=== PATIENT | male | born 1940 | race African-American/Black ===

== ENCOUNTER 2017-04-17 10:56 | Inpatient (IN) | payer OTHER ==
[2017-04-17] MEDS ORDERED: SODIUM CHLORIDE 0.9% 1000 ML INFUS.BAG IV STA (11:24)
--- NOTE | 2017-04-17 11:24 | PDOC ---
History of Present Illness - General History Source: Patient, EMS - History of Present Illness Initial Comments: 04/17/17 12:25 77 y/o M with a PMHx of AML, prostate CA, lung CA presents to the ED via EMS from home with SOB. Patient Per EMS, patient was lethargic, hypotensive and tachycardic. While walking, the patient syncopized prior to getting into the ambulance. Patient reports associated cough, and decreased PO intake for the past 5 days. Denies abdominal pain, nausea, vomiting, diarrhea. Denies chest pain. <Анна Alfonso - Last Filed: 04/17/17 12:25> <Gris Stallings - Last Filed: 04/17/17 13:02> - General Chief Complaint: Lethargy Stated Complaint: HYPOTENSIVE Time Seen by Provider: 04/17/17 11:23 Past History <Анна Alfonso - Last Filed: 04/17/17 12:25> - Past Medical History Cancer: Yes (prostate, lung) - Surgical History Abdominal Surgery: Yes - Immunization History Immunization Up to Date: Yes - Suicide/Smoking/Psychosocial Hx Smoking Status: Yes Smoking History: Unknown if ever smoked Have you smoked in the past 12 months: No Number of Cigarettes Smoked Daily: 0 Information on smoking cessation initiated: No Hx Alcohol Use: No Drug/Substance Use Hx: No Substance Use Type: None Hx Substance Use Treatment: No <Gris Stallings - Last Filed: 04/17/17 13:02> - Past Medical History Allergies/Adverse Reactions: Allergies Allergy/AdvReac Type Severity Reaction Status Date / Time No Known Allergies Allergy Verified 04/17/17 11:21 Home Medications: Ambulatory Orders Docusate Sodium [Colace -] 100 mg PO DAILY 04/17/17 Oxycodone HCl 0 mg PO DAILY 04/17/17 Sennosides [Senna] 0 mg PO DAILY 04/17/17 Tamsulosin HCl [Flomax] 0.4 mg PO DAILY 04/17/17 Review of Systems - Review of Systems Able to Perform ROS?: Yes Comments:: 04/17/17 12:25 GENERAL/CONSTITUTIONAL: (+) lethargic, decreased PO intake. No fever or chills. HEAD, EYES, EARS, NOSE AND THROAT: No change in vision. No ear pain or discharge. No sore throat. CARDIOVASCULAR: (+) SOB. No chest pain RESPIRATORY: (+) cough, No wheezing, or hemoptysis. GASTROINTESTINAL: No nausea, vomiting, diarrhea or constipation. GENITOURINARY: No dysuria, frequency, or change in urination. MUSCULOSKELETAL: No joint or muscle swelling or pain. No neck or back pain. SKIN: No rash NEUROLOGIC: (+) syncope. No headache, vertigo, or change in strength/sensation. ENDOCRINE: No increased thirst. No abnormal weight change. HEMATOLOGIC/LYMPHATIC: No anemia, easy bleeding, or history of blood clots. ALLERGIC/IMMUNOLOGIC: No hives or skin allergy. <Анна Alfonso - Last Filed: 04/17/17 12:25> *Physical Exam - Vital Signs Last Vital Signs Temp Pulse Resp BP Pulse Ox 99.6 F 109 H 36 H 106/60 85 L 04/17/17 10:56 04/17/17 10:56 04/17/17 10:56 04/17/17 10:56 04/17/17 10:56 <Анна Alfonso - Last Filed: 04/17/17 12:25> - Vital Signs Last Vital Signs Temp Pulse Resp BP Pulse Ox 99.6 F 109 H 36 H 106/60 85 L 04/17/17 10:56 04/17/17 10:56 04/17/17 10:56 04/17/17 10:56 04/17/17 10:56 <Gris Stallings - Last Filed: 04/17/17 13:02> Heart Score/ECG Review - ECG Intrepretation Comment:: 04/17/17 12:22 sinus tach at 109, nl axis, nl interval mild st depression lateral leads <Gris Stallings - Last Filed: 04/17/17 13:02> ED Treatment Course - LABORATORY CBC & Chemistry Diagram: 04/17/17 11:40 04/17/17 11:40 - ADDITIONAL ORDERS Additional order review: Laboratory Results 04/17/17 04/17/17 11:40 11:40 VBG pH 7.33 POC VBG pCO2 26.6 L POC VBG pO2 48.6 H Mixed VBG HCO3 13.8 L* Crossmatch See Detail 04/17/17 11:40 RBC 0.98 L D MCV 96.5 H MCHC 31.4 L RDW 19.2 H D MPV 9.3 D Neutrophils % No Result Required. Lymphocytes % No Result Required. - Medications Given in the ED: ED Medications Discontinued Medications Generic Name Dose Route Start Last Admin Trade Name Gurdeep PRN Reason Stop Dose Admin Sodium Chloride 2,177 ml 04/17/17 11:24 04/17/17 12:22 Normal Saline - IV 04/17/17 11:25 2,177 ml ONCE STA Administration <Анна Alfonso - Last Filed: 04/17/17 12:25> - LABORATORY CBC & Chemistry Diagram: 04/17/17 11:40 04/17/17 11:40 <Gris Stallings - Last Filed: 04/17/17 13:02> Medical Decision Making - Critical Care Time Total Critical Care Time (minutes): 30 Critical Care Statement: The care of this patient involved high complexity decision making to prevent further life threatening deterioration of the patient 's condition and/or to evaluate & treat vital organ system(s) failure or risk of failure. - Medical Decision Making 04/17/17 12:19 a/p: 77yo male with hypotension and syncope at home, generalized weakness and lethargy -warm to touch but rectal temp negative for fever -hx of prostate ca, lung ca, aml -dehydrated on exam -pale -currently on radiation therapy for lung ca with DR. Cooper -labs -type and screen -cultures -broad spectrum abx -ivf hydration -reassess 04/17/17 12:22 hgb 3, rectal performed and sent to the lab. denies hematuria/rectal bleeding/ hemoptysis/hematemesis 04/17/17 12:[address] Yates from ICU who will see the patient in consult. 04/17/17 12:23 consent obtained for blood transfusion 04/17/17 13:01 medicine residents at the bedside, accepts for Dr. Stearns <Gris Stallings - Last Filed: 04/17/17 13:02> *DC/Admit/Observation/Transfer - Attestations Scribe Attestion: 04/17/17 12:26 Documentation prepared by Анна Alfonso, acting as biomedical scientist for Gris Stallings DO. <Анна Alfonso - Last Filed: 04/17/17 12:25> - Discharge Dispostion Admit: Yes - Attestations Physician Attestion: 04/17/17 13:02 I, Dr. Gris Stallings DO, attest that this document has been prepared under my direction and personally reviewed by me in its entirety. I further attest, that it accurately reflects all work, treatment, procedures and medical decision -making performed by me. <Gris Stallings - Last Filed: 04/17/17 13:02> Diagnosis at time of Disposition: Acute kidney injury, Secondary anemia, Syncope - Discharge Dispostion Disposition: HOME Condition at time of disposition: Critical - Referrals Referrals: Feliberto Pantoja MD [Primary Care Provider] -
[2017-04-17] MEDS ORDERED: PIPERACILLIN/TAZOB 4.5 GM/100 ML PRE-DOCKED IVPB ONE (11:31)
[2017-04-17] MEDS ORDERED: VANCOMYCIN 1 GRAM (PRE-DOCKED) 1,000 MG/250 ML BAG IVPB ONE (11:31)
[2017-04-17 11:55] LABS: MCH 30.3 pg (25.7-33.7); MCHC 31.4 g/dl (32.0-35.9); MEAN CELL VOLUME 96.5 fl (80-96); MEAN PLT VOLUME 9.3 fl (7.5-11.1); RDW 19.2 % (11.9-15.9); WHITE BLOOD COUNT 22.6 K/mm3 (4.0-10.0)
[2017-04-17 12:01] LABS: PLATELET COUNT 25 K/MM3 (134-434)
[2017-04-17 12:09] LABS: VENOUS BLOOD GAS HCO3 13.8 meq/L (19-25); VENOUS PH 7.33 (7.32-7.42)
[2017-04-17 12:12] LABS: INR 1.7 (0.82-1.09); PROTHROMBIN TIME (PATIENT) 18.9 SEC (9.98-11.88)
[2017-04-17 12:15] LABS: ACTIVATED PTT 28.6 SECONDS (26.9-34.4)
[2017-04-17 12:17] LABS: MAGNESIUM 2.3 mg/dL (1.8-2.4)
[2017-04-17 12:21] LABS: ALBUMIN 2.5 g/dl (3.4-5.0); ANION GAP 16 (8-16); BILIRUBIN,TOTAL 0.4 mg/dL (0.2-1.0); CALCIUM 7.5 mg/dL (8.5-10.1); CO2 15 mmol/L (21-32); CREATININE 1.8 mg/dL (0.7-1.3); GLUCOSE,RANDOM 150 mg/dL (74-106); SGOT/AST 16 U/L (15-37); SGPT/ALT 14 U/L (12-78); TOT PROT 5.1 g/dl (6.4-8.2)
[2017-04-17] MEDS ORDERED: PIPERACILLIN/TAZOB 4.5 GM 100 ML IVPB ONE (12:23)
[2017-04-17 12:24] LABS: ALK PHOS 65 U/L (45-117); CPK 50 IU/L (39-308); TROPONIN I < 0.02 ng/ml (0.00-0.05)
--- NOTE | 2017-04-17 12:56 | EKG ---
Test Reason : Blood Pressure : / mmHG Vent. Rate : 109 BPM Atrial Rate : 109 BPM P-R Int : 124 ms QRS Dur : 070 ms QT Int : 314 ms P-R-T Axes : 062 -79 -47 degrees QTc Int : 422 ms SINUS TACHYCARDIA WITH PREMATURE ATRIAL COMPLEXES LEFT AXIS DEVIATION LOW VOLTAGE QRS EARLY TRANSITION IN V1 WITH ST ELEVATION, TRUE POSTERIOR WALL MO NEEDS TO BE RULED OUT ST SEGMENT DEPRESSIONS IN II,III,aVF AND V4-V6 ABNORMAL ECG WHEN COMPARED WITH ECG OF 21-NOV-2015 09:33, PREMATURE ATRIAL COMPLEXES ARE NOW PRESENT CHANGES MENTIONED ABOVE REPAT TRACINGS Confirmed by ELLEN MUNIZ MD ([id number]) on 04/17/2017 12:55:53 PM Referred By: Confirmed By:ELLEN MUNIZ MD
[2017-04-17 12:57] LABS: URINE APPEARANCE CLOUDY; URINE BILIRUBIN NEGATIVE (NEGATIVE); URINE BLOOD NEGATIVE (NEGATIVE); URINE COLOR YELLOW; URINE GLUCOSE (UA) NEGATIVE (NEGATIVE); URINE KETONE NEGATIVE (NEGATIVE); URINE LEUK ESTERASE NEGATIVE (NEGATIVE); URINE NITRITE NEGATIVE (NEGATIVE); URINE PROTEIN NEGATIVE (NEGATIVE); URINE UROBILINOGEN NEGATIVE mg/dL (0.2-1.0)
[2017-04-17 13:25] LABS: METAMYELOCYTE 1 % (0-2); MYELOCYTE 2 % (0-2); TOTAL CELLS COUNTED 100
[2017-04-17 13:26] LABS: ANISOCYTOSIS 2+; BLAST 27 % (0-0); MACROCYTOSIS 1+; MICROCYTOSIS 1+; OVALOCYTE 2+; PLATELET ESTIMATE MARKEDLY DECREASED (NORMAL); TEAR DROP CELLS 1+
--- NOTE | 2017-04-17 13:41 | HP ---
CHIEF COMPLAINT: Oncologist Dr. Prakash [facility] [phone] HISTORY OF PRESENT ILLNESS: 77 yr old man with prostate ca, stage 4 lung adenocarcinoma, AML BIBEMS from home due to weakness. He has been having generalized weakness, poor appetite, cough and sob for past few weeks. this morning he was feeling very weak and unable to move. notes 40lb unintentional weight loss over past 2 months. He went to [facility] on 04/11 due to sob and weakness, says he was dx'd with pna and did not want to be admitted so he was discharged with levaquin 750mg po for 10 days. As per sister, she was called by Dr. Prakash yesterday who had urged him to go to the hospital to which the patient apparently said he would go but did not. She called him this morning on his home phone and cell but could not reach him so she called his social media senior associate Miss Hollis ([phone]) who had maintainence open his door. He was found laying on the couch unable to move and appearing weak. EMS was called. PAST MEDICAL HISTORY: prostate ca, stage 4 lung adenoca, AML Social History: Smoking: former smoker quit >20yrs ago Family History: multiple family members with cancer, sister with breast ca, brother from AML Allergies No Known Allergies Allergy (Verified 04/17/17 11:21) HOME MEDICATIONS: Matilda Haider ([phone]) and colmehrdad TID Senna BID 04/11 Jozef Miller levoquin 750mg qdaily for 10 days 03/06 oxy 10mg 1t q4hr prn 30 day supply 02/22 percocet 5-325 1 q6hr Home Medications Medication Instructions Recorded Docusate Sodium [Colace -] 100 mg PO DAILY 04/17/17 Oxycodone HCl 0 mg PO DAILY 04/17/17 Sennosides [Senna] 0 mg PO DAILY 04/17/17 Tamsulosin HCl [Flomax] by naga Pringle([phone]) last used in November 0.4 mg PO DAILY 04/17/17 PHYSICAL EXAMINATION GENERAL: lethargic, awake, alert, and fully oriented HEAD: Normal with no signs of trauma. EYES: Pupils equal, round and reactive to light, extraocular movements intact, sclera anicteric, conjunctiva clear. No lid lag. EARS, NOSE, THROAT: oropharynx clear without exudates. dry mucous membranes. tongue and right upper palate with dark pigmented mucus. no oral lesions or thrush. NECK: supple without lymphadenopathy, JVD, or masses. LUNGS: Breath sounds equal, clear to auscultation bilaterally HEART: Regular rate and rhythm, normal S1 and S2 without murmur, rub or gallop. ABDOMEN: Soft, nontender, not distended, normoactive bowel sounds, well-healed epigastric scar UPPER EXTREMITIES: 2+ radial pulses, warm, well-perfused. No peripheral edema. LOWER EXTREMITIES: 2+ dp pulses, warm, well-perfused. No calf tenderness. No peripheral edema. NEUROLOGICAL: Cranial nerves II-XII intact. Normal speech. facial symmetry. 5/ 5 b/l handgrip SKIN: Warm, dry, normal turgor, no rashes or lesions noted, normal capillary refill. ASSESSMENT/PLAN: 77 yr old man with multiple malignancies bibems due to generalized weakness and syncope admitted to the ICU with severe anemia, SIRS with lactic acidosis and MELISSA. - r/o dvts with LE doppler and echo to evaluate any right heart strain due to EKG findings. due to low h/h and thrombocytopenia, patient may not be a candidate for anticoagulation at this time. #Severe Anemia - unclear etiology, guaic +, ferritin/iron/TIBC/vit b15, haptoglobin/LDH/retic pending to r/o KEVIN/anemia of chronic disease/hemolytic anemia - concern for possibel AIHA from levofloxacin use - 4 units prbc's ordered - hematology consulted -- discussed case with Dr. Garcia who spoke with Dr. Prakash(pt's oncologist), pt's hgb on 04/02 was 7.0, concern for blast crisis now: repeat cbc , uric acid, LDH, coags, fibrinogen, mag, phos, maintain active type and screen. start on po bicarb BID and allopurinol 100mg po - to obtain g6pd, it is a send out test, will discuss with pathologist for approval tomorrow #Leucocytosis - reactive vs infectious, blood cx pending - will need coverage for hospital acquired pna in immunocomprimised pt - pt received vanc + zosyn in ED - ID consulted #MELISSA - likely pre-renal due to hypoperfusion due to severe anemia/volume depletion - r/o obstruction with renal/bladder scan - IVF post-transfusion - Discussed with Dr. Vasquez: plan for GI eval for possible scope in the AM, patient will be placed NPO with protonix po BID Diet: regular DVT: mod risk, however with low h/h and positive guaic/thrombocytopenia, will defer medical anti-coag. scds. Visit type - Emergency Visit Emergency Visit: No - New Patient This patient is new to me today: Yes Date on this admission: 04/17/17 - Critical Care Critical Care patient: Yes Total Critical Care Time (in minutes): 40 Critical Care Statement: The care of this patient involved high complexity decision making to prevent further life threatening deterioration of the patient 's condition and/or to evaluate & treat vital organ system(s) failure or risk of failure.
--- NOTE | 2017-04-17 14:13 | EKG ---
Test Reason : Blood Pressure : / mmHG Vent. Rate : 102 BPM Atrial Rate : 102 BPM P-R Int : 134 ms QRS Dur : 066 ms QT Int : 354 ms P-R-T Axes : 059 -65 030 degrees QTc Int : 461 ms POOR DATA QUALITY, INTERPRETATION MAY BE ADVERSELY AFFECTED SINUS TACHYCARDIA POSSIBLE LEFT ATRIAL ENLARGEMENT EARLY TRANSITION IN V2, TRUE POSTERIOR WALL IA OR INTHE PRESENCE OF S1 QIIIN PTE NEEDS TO BE EXCLUDED INDETERMINATE AXIS LOW VOLTAGE QRS NONSPECIFIC ST ABNORMALITY ABNORMAL ECG WHEN COMPARED WITH ECG OF 17-APR-2017 11:05, PREMATURE ATRIAL COMPLEXES ARE NO LONGER PRESENT T WAVE AMPLITUDE HAS DECREASED IN ANTERIOR LEADS FOLLOW UP TRACING IS RECOMMENDED Confirmed by ELLEN MUNIZ MD ([id number]) on 04/17/2017 2:13:24 PM Referred By: Confirmed By:ELLEN MUNIZ MD
--- NOTE | 2017-04-17 14:47 | PN ---
Teaching Attending Note ATTENDING PHYSICIAN STATEMENT I saw and evaluated the patient. I reviewed the resident's note and discussed the case with the resident. I agree with the resident's findings and plan as documented. SUBJECTIVE: Pt seen and examined in the ICU. Briefly, 77yo male with h/o stage 4 NSCLC, AML did not tolerate chemotherapy, prostate ca who was admitted with worsening generalized weakness, found to be hypotensive and tachycardic by EMS. Episode of syncope while with EMS. Denies fevers, chills, cough. Does report chest pain and shortness of breath with exertion. Found to be severely anemic with Hgb 3. States last blood count drawn was 3 weeks ago, required transfusions after that count. OBJECTIVE: Last Vital Signs Temp Pulse Resp BP Pulse Ox 98 F 95 H 18 98/47 96 04/17/17 14:20 04/17/17 14:20 04/17/17 14:20 04/17/17 14:20 04/17/17 12:26 Intake & Output 04/14/17 04/15/17 04/16/17 04/17/17 23:59 23:59 23:59 23:59 Weight 160 lb Gen: tachypneic at rest Heart: tachycardic, regular Lung: decreased breath sounds at the bases Abd: soft, nontender Ext: no edema CBC, BMP 04/17/17 11:40 04/17/17 11:40 Active Medications Chlorhexidine Gluconate (Hibiclens For Decolonization -) 1 applic TP HS DENISSE Mupirocin (Bactroban Ointment (For Decolonization) -) 1 applic NS BID DENISSE Stop: 04/22/17 21:59 ASSESSMENT AND PLAN: Severe Anemia/Thrombocytopenia Hypovolemia Lactic Acidosis from above Acute Kidney Injury Syncope AML Stage 4 NSCLC h/o Prostate Ca - transfuse PRBC, platelets - monitor CBC - IVF - monitor urine output, creatinine - trend lactate - echocardiogram given EKG findings - LE dopplers - protonix - heme/onc eval for prior records - received empiric antibiotics in ER, CXR findings likely progression of disease - DVT prophylaxis - ICU monitoring critical care time spent in reviewing chart, evaluating patient and formulating plan 35 min
[2017-04-17 15:37] VITALS: BMI 18.7
[2017-04-17] MEDS ORDERED: PNEUMOC 13-VAL CONJ-DIP CRM/PF 0.5 ML DISP.SYRIN IM ONE (15:51)
[2017-04-17] MEDS ORDERED: FLU VACCINE QUAD 60 MCG/0.5 ML (MDV 17-18) IM ONE (17:00)
--- NOTE | 2017-04-17 17:10 | CONSULT ---
Consultation: REQUESTING PROVIDER: ICU CONSULT REQUEST: We have been asked to medically evaluate this patient for ( anemia). 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 Hospitalizes 11/05 for similar symptoms, was treated for suspected PNA with rocephin/zithromax. Hospitalized at [facility] several months ago for hip fracture. Last cbc at oncologist 1 mo ag was 7 and required transfusion. Has been prescribed a course of levaquin a week ago for worsening cough productive of pink sputum, which he began taking. Patient brought to ICU in hemodynamically stable condition and afebrile. CBC shows severe anemia and thrombocytopenia Hgb 3 Plat 25. Patient denies recent f/c, h/a, n/v, diarrhea, melena, hematochezia, dysuria, hesitancy, frequency. He complains of generalized weakness, sob with minimal exertion, chest pain and thirst. REVIEW OF SYSTEMS: CONSTITUTIONAL: Absent: fever, chills HEENT: Absent: rhinorrhea, nasal congestion, throat pain, difficulty swallowing CARDIOVASCULAR: Absent: palpitations, peripheral edema RESPIRATORY: Absent: orthopnea GASTROINTESTINAL: Absent: abdominal pain, abdominal distension, nausea, vomiting, diarrhea, constipation, melena, hematochezia GENITOURINARY: Absent: dysuria, frequency, urgency, hesitancy, hematuria, flank pain MUSCULOSKELETAL: Absent: myalgia SKIN: Absent: rash, itching HEMATOLOGIC/IMMUNOLOGIC: Absent: frequent infections ENDOCRINE: Absent: heat intolerance, cold intolerance NEUROLOGIC: Absent: headache, focal weakness or paresthesias PSYCHIATRIC: Absent: anxiety, depression PHYSICAL EXAMINATION Vital Signs - 24 hr 04/17/17 04/17/17 04/17/17 14:20 15:26 16:01 Temperature 98 F 98.4 F Pulse Rate 95 H 96 H Respiratory 18 22 Rate Blood Pressure 98/47 101/39 O2 Sat by Pulse 100 Oximetry (%) 04/17/17 17:00 Temperature 98.5 F Pulse Rate 97 H Respiratory 26 H Rate Blood Pressure 108/45 O2 Sat by Pulse Oximetry (%) GENERAL: Awake, and oriented so self and place, in no acute distress, lethargic HEAD: Normal with no signs of trauma. EYES: Pupils equal, round and reactive to light, extraocular movements intact, sclera anicteric, conjunctiva pale. EARS, NOSE, THROAT: dry mucous membranes. NECK: supple without JVD LUNGS: reduced at bases, diffuse mild crackles HEART: Regular rate and rhythm, normal S1 and S2 ABDOMEN: Soft, nontender, not distended, normoactive bowel sounds, midline supraumbilical pulsatile mass MUSCULOSKELETAL: No CVA tenderness. UPPER EXTREMITIES: 2+ pulses, warm, well-perfused. No peripheral edema. LOWER EXTREMITIES: 2+ pulses, warm, well-perfused. No calf tenderness. No peripheral edema. NEUROLOGICAL: Cranial nerves II-XII intact. strenght 4-/5 in all extremities, sensation intact. slurred speech but not wearing dentures and has a dry mouth. PSYCHIATRIC: Cooperative. Good eye contact. Appropriate mood and affect. SKIN: Warm, dry, decreased turgor Laboratory Results - last 24 hr 04/17/17 04/17/17 04/17/17 13:57 13:57 13:57 Retic Count 1.01 Ferritin 9207.463 H LD Total 770 H Vitamin B12 04/17/17 14:00 Retic Count Ferritin LD Total Vitamin B12 386 Active Medications Generic Name Dose Route Start Last Admin Trade Name Freq PRN Reason Stop Dose Admin Chlorhexidine Gluconate 1 applic 04/17/17 22:00 Hibiclens For Decolonization - TP HS [facility] Mupirocin 1 applic 04/17/17 22:00 Bactroban Ointment (For Decolonization) - NS 04/22/17 21:59 BID [facility] ASSESSMENT/PLAN: Patient is a 77 yo M with MPH of AML, 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 Neuro -mildly lethargic due to anemia; responds appropriately to questions and follows commands -memory lag -no focal neuro deficits identified -expect improvement s/p transfusions Pulm *Stage 4 NCSCL, not currently on chemo -CXR R pleural effusion previously present, likely preogression of disease -due to reported worsening cough, will cover with zosyn and vanco ( MRSA risk) -ID on case -blood, urine and sputum cultures Cardiovascular *tachycardia secondary to anemia *chest pain secondary to demand ischemia -EKG sinus tach and nospecific T abnormalities -trop negative x 1; repeat -severe anemia Hgb 3 (baseline 8), ana luisaley due to myelodysplastic nature of AML in elderly patient -pRBC 2 U followed by repeat CBC -thrombocytopenia 25, will monitor and transfuse for plat <20 -iron studies and further heme labs p/d Severe lactic acidosis 9.8 due to demand ishemia -bicarb pills -IV hydration -repeat labs Oncology *Stage 4 NSCL: Monitor RLL effusion with daily CXR -prophylactic abx coverage -supplemental O2 for sats >92% -continue oxycodone 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 Thank you for this consultative opportunity. Problem List - Problems (1) MELISSA (acute kidney injury) Code(s): N17.9 - ACUTE KIDNEY FAILURE, UNSPECIFIED (2) Symptomatic anemia Code(s): D64.9 - ANEMIA, UNSPECIFIED (3) Syncope Code(s): R55 - SYNCOPE AND COLLAPSE (4) Abnormal CXR (chest x-ray) Code(s): R93.8 - ABNORMAL FINDINGS ON DIAGNOSTIC IMAGING OF BODY STRUCTURES (5) Anemia Code(s): D64.9 - ANEMIA, UNSPECIFIED Qualifiers: Anemia type: unspecified type Qualified Code(s): D64.9 - Anemia, unspecified (6) Lung cancer Code(s): C34.90 - MALIGNANT NEOPLASM OF UNSP PART OF UNSP BRONCHUS OR LUNG Qualifiers: Laterality: unspecified laterality (7) Pancytopenia Code(s): D61.818 - OTHER PANCYTOPENIA (8) Prostate cancer Code(s): C61 - MALIGNANT NEOPLASM OF PROSTATE (9) Weakness Code(s): R53.1 - WEAKNESS (10) Lactic acidosis Code(s): E87.2 - ACIDOSIS (11) Chest pain Code(s): R07.9 - CHEST PAIN, UNSPECIFIED (12) Demand ischemia Code(s): I24.8 - OTHER FORMS OF ACUTE ISCHEMIC HEART DISEASE (13) AML (acute myeloblastic leukemia) Code(s): C92.00 - ACUTE MYELOBLASTIC LEUKEMIA, NOT HAVING ACHIEVED REMISSION (14) GIB (gastrointestinal bleeding) Code(s): K92.2 - GASTROINTESTINAL HEMORRHAGE, UNSPECIFIED Visit type - Emergency Visit Emergency Visit: Yes ED Registration Date: 04/17/17 Care time: The patient presented to the Emergency Department on the above date and was hospitalized for further evaluation of their emergent condition. - New Patient This patient is new to me today: Yes Date on this admission: 04/17/17 - Critical Care Critical Care patient: Yes Total Critical Care Time (in minutes): 45 Critical Care Statement: The care of this patient involved high complexity decision making to prevent further life threatening deterioration of the patient 's condition and/or to evaluate & treat vital organ system(s) failure or risk of failure.
--- NOTE | 2017-04-17 17:38 | PN ---
Progress Note (short form) - Note Progress Note: ID consult dictated imp/reccd tired- not eager to talk to me- history from patient and chart 77 year old man with lung cancer, prostate cancer and AML- did not tolerate chemo- followed by Dr Tiwari admitted with SOB and weakness- he had episode of syncope while getting in the ambulance found to be hypotensive with hgb of 3! denies fevers recently seen at [facility] 04/11 and was prescribed levaquin 750 daily intermittent cough cxray with RLL infiltrate/effusion hgb3 lactic acid 9.8 thrombocytopenia wbc 22k with 62% pmns, 27%blasts not neutropenic cannot r/o sepsis with RLL infiltrate, cough, leukocytosis has been hospitalized at [facility] as well- received vancomycin and zosyn in ED he has MELISSA would check vanco level and continue zosyn sputum culture and urinary antigens was on levaquin as outpt leukocytosis may well be partly reactive to anemia as well as due to his AML ( he has blasts) severe anemia with thrombocytopenia- per hematology currently receiving transfusion history of prostate cancer, lung cancer , AML 40 minutes spent in the care of this critically ill ICU patient d/w Dr Velazquez and Dr Wright
[2017-04-17] MEDS: PIPERACILLIN/TAZOB 3.375 GM/50 ML PRE-DOCKED IVPB SCH (17:58)
[2017-04-17] MEDS ORDERED: SODIUM CHLORIDE 1,000 ML IV SCH (18:30)
[2017-04-17] MEDS ORDERED: oxyCODONE HCL 5 MG TABLET PO SCH (18:30)
--- NOTE | 2017-04-17 18:32 | PN ---
Teaching Attending Note Name of Resident: Dale Blas ATTENDING PHYSICIAN STATEMENT I saw and evaluated the patient. I reviewed the resident's note and discussed the case with the resident. I agree with the resident's findings and plan as documented. SUBJECTIVE: This is a 77-year-old man with a history of AML, lung cancer, prostate cancer who comes to the ER because of worsening weakness, decreased appetite and shortness of breath. EMS was called and found him to be hypotensive and tachycardic. He had been seen on 04/[address] [facility] ER. He was diagnosed with pneumonia and he refused to stay, so he was given a prescription for Levaquin 750 mg daily x 10 days. OBJECTIVE: Vital Signs Period Temp Pulse Resp BP Sys/Leigh Pulse Ox Last 24 Hr 98 F-99.6 F 95-109 18-36 82-126/39-71 85-100 HEART: S1S2, tachycardic LUNGS: Clear ABDOMEN: Soft, non-tender, non-distended, normal BS EXTREMITIES: No edema ASSESSMENT AND PLAN: This is a 77-year-old man with a history of AML, lung cancer, prostate cancer who presented to the ER with weakness, SOB. 1. Severe sepsis secondary to healthcare-associated pneumonia - Zosyn, Vancomycin started - IV fluid - Monitor lactic acid 2. Severe anemia - Being transfused 2 units PRBCs - Likely secondary to sepsis, AML - Anemia work-up - Stool positive for occult blood - Start Protonix - GI, hematology consults 3. Acute hypoxic respiratory failure secondary to pneumonia, anemia - Oxygen to maintain saturation > 90% 4. Thrombocytopenia - Likely secondary to sepsis, AML 5. Acute kidney injury secondary to sepsis, hypoperfusion - IV fluid, transfuse PRBCs - Monitor BUN, creatinine 6. Stage IV squamous cell lung cancer 7. Prostate cancer 8. AML 9. DVT prophylaxis - SCDs - No anticoagulation secondary to anemia, thrombocytopenia Critical Care Total Critical Care Time (in minutes): 60 Critical Care Statement: The care of this patient involved high complexity decision making to prevent further life threatening deterioration of the patient 's condition and/or to evaluate & treat vital organ system(s) failure or risk of failure.
--- NOTE | 2017-04-17 18:41 | CONSULT ---
Consult Consult Specialty:: Oncology Reason for Consultation:: AML - History of Present Illness History of Present Illness: Patient seen and examined. Chart reviewed in detail. Pt with Stage IV Lung Squamous ( on Nivo , last dose early mar), AML ( on supportive care, periodic transfusions , diagnosed in 09/2016) is now admitted SOB, syncope, hypotension. Was admitted to ICU for further management. - Past Medical History Pulmonary: Yes: Other (Patient reports Lung Cancer receiving weekly chemo) Renal/: Yes: Other (Prostate CA receiving hormonal Rx under Dr. Xiomara Peter) Additional Medical History: Patient is receiving hormonal Rx for prostate CA and reports having a second primary malignancy of the lung for which he receives weekly IV chemoRx in [place] ([facility]) - Alcohol/Substance Use Hx Alcohol Use: No History of Substance Use: reports: None - Smoking History Smoking history: Unknown if ever smoked Have you smoked in the past 12 months: No Aproximately how many cigarettes per day: 0 - Social History Usual Living Arrangement: Alone ADL: Independent History of Recent Travel: No Home Medications - Allergies Allergies/Adverse Reactions: Allergies Allergy/AdvReac Type Severity Reaction Status Date / Time No Known Allergies Allergy Verified 04/17/17 11:21 - Home Medications Home Medications: Ambulatory Orders Docusate Sodium [Colace -] 100 mg PO DAILY 04/17/17 Oxycodone HCl 10 mg PO Q6H 04/17/17 Sennosides [Senna] 8.6 mg PO DAILY 04/17/17 Tamsulosin HCl [Flomax] 0.4 mg PO DAILY 04/17/17 Review of Systems - Review of Systems Constitutional: reports: Fever, Lethargy, Loss of Appetite, Malaise, Weakness Physical Exam Vital Signs: Vital Signs Temperature 98.5 F 04/17/17 17:00 Pulse Rate 97 H 04/17/17 17:00 Respiratory Rate 26 H 04/17/17 17:00 Blood Pressure 108/45 04/17/17 17:00 O2 Sat by Pulse Oximetry (%) 100 04/17/17 15:26 Constitutional: Yes: Other (letahrgic, easily arousable and could hold a conversation.) Eyes: Yes: Conjunctiva Clear HENT: Yes: Atraumatic, Normocephalic Neck: Yes: Supple, Trachea Midline Cardiovascular: Yes: Regular Rate and Rhythm, Tachycardia Respiratory: Yes: Regular Gastrointestinal: Yes: Normal Bowel Sounds, Soft, Abdomen, Obese Edema: No Assessment/Plan Stage IV Squamous cell lung Ca ( presently on Nivolumab , last dose, early Mar) AML ( diagnosed in 09/2016 ,s/p "7+3" chemo ,no further Rx, pt declined) Severe sepsis , likely from PNA. Severe Hypotension. -Pt with severe anemia/thrombocytopenia, a combination of likely sepsis/ worsening AML. -supportive care with PRBC and Platelets ( ordered for both now). -Leucoyctosis, w/ 27% blasts ( new from 04/02 , labs from [facility]), sent out a requisition for flow, will confirm reciept in the am. -r/o DIC, repeat coags. -at risk for Tumor lysis, daily LDH, uric acid, lytes, start allopurinol 100mg, pending course might need to give rasburicase. -MELISSA. -Pt did not want chemotherapy as it is not "good" and he doesn't wanted to be transferred anywhere in his words. -ID consult -Critically ill. -I have spoken to and updated the pts admission/condition. I have discussed the plan in detail with admitting resident and also communicated with RN in detail.
--- NOTE | 2017-04-17 19:49 | EKG ---
Test Reason : Blood Pressure : / mmHG Vent. Rate : 094 BPM Atrial Rate : 094 BPM P-R Int : 134 ms QRS Dur : 076 ms QT Int : 370 ms P-R-T Axes : 066 -55 032 degrees QTc Int : 462 ms SINUS RHYTHM WITH PREMATURE SUPRAVENTRICULAR COMPLEXES AND PREMATURE VENTRICULAR COMPLEXES OR FUSION COMPLEXES LEFT AXIS DEVIATION LOW VOLTAGE QRS INCREASED R/S RATIO IN V1, CONSIDER EARLY TRANSITION OR POSTERIOR INFARCT ABNORMAL ECG WHEN COMPARED WITH ECG OF 17-APR-2017 13:11, FUSION COMPLEXES ARE NOW PRESENT PREMATURE VENTRICULAR COMPLEXES ARE NOW PRESENT PREMATURE SUPRAVENTRICULAR COMPLEXES ARE NOW PRESENT Confirmed by ELLEN MUNIZ MD ([id number]) on 04/17/2017 7:49:16 PM Referred By: Kenton MCCORMICK Confirmed By:ELLEN MUNIZ MD
[2017-04-17 21:02] LABS: MCH 28.6 pg (25.7-33.7); MCHC 33.1 g/dl (32.0-35.9); MEAN CELL VOLUME 86.3 fl (80-96); RDW 16.8 % (11.9-15.9); WHITE BLOOD COUNT 18.5 K/mm3 (4.0-10.0)
[2017-04-17 21:30] LABS: PHOSPHOROUS 4.3 mg/dL (2.5-4.9); URIC ACID 10.5 mg/dL (2.6-7.2)
[2017-04-17] MEDS ORDERED: ALLOPURINOL 100 MG TABLET (FP) PO ONE (21:39)
[2017-04-17] MEDS ORDERED: SODIUM BICARBONATE 650 MG TABLET PO SCH (22:00)
[2017-04-17] MEDS: PANTOPRAZOLE 40 MG TABLET (FP) PO SCH (22:08)
[2017-04-17] MEDS: MUPIROCIN 2% TOPICAL OINTMENT FOR DECOLONIZATION NS SCH (22:21)
[2017-04-17] MEDS: CHLORHEXIDINE GLUCONATE 4% CLEANSER FOR DECOLONIZATION TP SCH (22:21)
[2017-04-17 22:50] LABS: INR 1.69 (0.82-1.09); PROTHROMBIN TIME (PATIENT) 18.8 SEC (9.98-11.88)
--- NOTE | 2017-04-17 23:13 | HP ---
CHIEF COMPLAINT: Shortness of breath PCP: name unknown to patient HISTORY OF PRESENT ILLNESS: The patient is a 77 yo M w/ PMH AML, Prostate Ca, Lung Ca (Stage 4) who was BIBEMS c/o increased shortness of breath for the past 1 week. Patient was confused during interview. History compiled from patient, patient's sister and ED records. The patient had been complaining of progressive shortness of breath for the past 2 months. One day prior to admission, the patient called his sister , stating that he did not feel well. Over the next day, the patient did not answer his sister's calls, prompting her to enter his apartment with a application manager. They found the patient in his apartment confused and in respiratory distress. As per EMS, the patient was tachycardic and hypotensive at the scene. When the patient was walking to the ambulance, he syncopized. The patient also complains of cough and decreased PO intake for the past 5 days. He recently went to [facility] ER, where he was diagnosed with pneumonia and sent home on Levquin. Patient denies chest tightness, chest pain, fevers, chills, abdominal pain, palpitations, N/V/D ER course was notable for: (1) WBC 22.6, Hb 3, hct 9.5, plt 25 (2) rectal temp 99.8, lactic acid 9.8 (3) s/p 1u PRBC Recent Travel: none PAST MEDICAL HISTORY: -see above -hip fracture september 2016 PAST SURGICAL HISTORY: -hip fracture repair september 2016 -VATS to correct recurrent pleural effusions Social History: Smoking: smoked 1PPD for unknown amount of time. Quit 30 years ago. Alcohol: denies Drugs: denies Family History: -multiple family members with cancer on both sides; ages and types of cancer unknown Allergies No Known Allergies Allergy (Verified 04/17/17 11:21) HOME MEDICATIONS: Home Medications Medication Instructions Recorded Docusate Sodium [Colace -] 100 mg PO DAILY 04/17/17 Oxycodone HCl 10 mg PO Q6H 04/17/17 Sennosides [Senna] 8.6 mg PO DAILY 04/17/17 Tamsulosin HCl [Flomax] 0.4 mg PO DAILY 04/17/17 REVIEW OF SYSTEMS CONSTITUTIONAL: Absent: fever, chills, diaphoresis, generalized weakness, malaise, loss of appetite, weight change HEENT: Absent: rhinorrhea, nasal congestion, throat pain, throat swelling, difficulty swallowing, mouth swelling, ear pain, eye pain, visual changes CARDIOVASCULAR: Absent: chest pain, palpitations, irregular heart rate, peripheral edema RESPIRATORY: Absent: orthopnea, wheezing, stridor, hemoptysis GASTROINTESTINAL: Absent: abdominal pain, abdominal distension, nausea, vomiting, diarrhea, constipation, melena, hematochezia GENITOURINARY: Absent: dysuria, frequency, urgency, hesitancy, hematuria, flank pain, genital pain MUSCULOSKELETAL: Absent: myalgia, arthralgia, joint swelling, back pain, neck pain SKIN: Absent: rash, itching, pallor HEMATOLOGIC/IMMUNOLOGIC: Absent: easy bleeding, easy bruising, lymphadenopathy ENDOCRINE: Absent: unexplained weight gain, unexplained weight loss, heat intolerance, cold intolerance NEUROLOGIC: Absent: headache, focal weakness or paresthesias, dizziness, unsteady gait, seizure, mental status changes, bladder or bowel incontinence PSYCHIATRIC: Absent: anxiety, depression, suicidal or homicidal ideation, hallucinations. PHYSICAL EXAMINATION Vital Signs - 24 hr 04/17/17 04/17/17 04/17/17 14:20 15:26 16:01 Temperature 98 F 98.4 F Pulse Rate 95 H 96 H Respiratory 18 22 Rate Blood Pressure 98/47 101/39 O2 Sat by Pulse 100 Oximetry (%) 04/17/17 04/17/17 17:00 20:00 Temperature 98.5 F Pulse Rate 97 H 93 H Respiratory 26 H 24 Rate Blood Pressure 108/45 91/43 O2 Sat by Pulse Oximetry (%) GENERAL: Patient mildy confused, solumnent able to answer questions. HEAD: Normal with no signs of trauma. EYES: Pupils equal, round and reactive to light, extraocular movements intact, sclera anicteric, conjunctiva clear. No lid lag. NECK: Normal range of motion, supple no JVD. LUNGS: Breath sounds equal, clear to auscultation bilaterally. No wheezes, and no crackles. Patient using accessory muscles to breathe. Able to speak in full sentences HEART: Regular rate and rhythm, normal S1 and S2 without murmur, rub or gallop. ABDOMEN: Soft, nontender, not distended, normoactive bowel sounds, no guarding, no rebound, no masses. No hepatomegaly or splenomegaly. UPPER EXTREMITIES: 2+ pulses, warm, well-perfused. No cyanosis. No clubbing. No peripheral edema. LOWER EXTREMITIES: 2+ pulses, warm, well-perfused. No calf tenderness. No peripheral edema. NEUROLOGICAL: Cranial nerves II-X intact. Normal speech. Normal gait. Strength 5/5 in all extremities. Face is symmetric SKIN: Warm, dry, normal turgor, no rashes or lesions noted, normal capillary refill. Laboratory Results - last 24 hr 04/17/17 04/17/17 04/17/17 13:57 13:57 13:57 WBC RBC Hgb Hct MCV MCH MCHC RDW Plt Count Neutrophils % Lymphocytes % Retic Count 1.01 Fibrinogen Uric Acid Phosphorus Ferritin 9207.463 H LD Total 770 H Troponin I Vitamin B12 04/17/17 04/17/17 04/17/17 14:00 20:00 20:00 WBC 18.5 H RBC 1.67 L D Hgb 4.8 L* D Hct 14.4 L MCV 86.3 MCH 28.6 MCHC 33.1 RDW 16.8 H D Plt Count Neutrophils % No Result Required. Lymphocytes % No Result Required. Retic Count Fibrinogen 259.0 Uric Acid Phosphorus Ferritin LD Total Troponin I Vitamin B12 386 04/17/17 04/17/17 20:00 20:00 WBC RBC Hgb Hct MCV MCH MCHC RDW Plt Count Neutrophils % Lymphocytes % Retic Count Fibrinogen Uric Acid 10.5 H Phosphorus 4.3 Ferritin LD Total 699 H Troponin I < 0.02 Vitamin B12 ASSESSMENT/PLAN: This is a 77 yo M w/ PMH of multiple malignacies who was BIBEMS c/o increased SOB, cough, decreased PO intake and lethargy for 1 week. He is admitted to the ICU for acute hypoxemic respiratory failure 2/2 severe symptomatic anemia and MELISSA. #Severe symptomatic anemia -Hb 3 in ED -s/p 1u PRBC in ED -4 more units ordered -serial CBC's to gauge Hb response -serum FE, TIBC, Ferritin, reticulocytes, Vit b12 lvls -Haptoglobin, LDH -hematology consult -guiac positive -GI consult #Severe Sepsis likely 2/2 RLL PNA -CXR showing RLL consolidation/atalectasis -ID consult, will follow reccs -s/p vancomycin, zosyn in ED #Acute hypoxemic respiratory failure likely 2/2 severe symptomatic anemia vs PNA -saturating between 75 and 90 on NRB during interview -supplemental O2 to maintain saturation >90% #lactic acidosis likley 2/2 severe sepsis vs anemia -LA 9.8 in ED -IVF -will RPT lactic acid in AM #leukocytosis likley 2/2 PNA vs malignancy -22.6 in ED -ID consult -s/p vancomycin, zosyn in ED #MELISSA likely 2/2 anemia vs severe sepsis vs post renal causes -BUN 83, Cr 1.8 in ED -baseline creatinine .8 -IVF -renal/bladder US r/o obstruction -kerr catheter in place #thrombocytopenia likely 2/2 malignancy -platelets 25 in ED -hematology consult #FEN -NS @ 75 -monitor lytes -NPO #Prophy -SCDs; anticoagulation c/i in setting of possible bleed and anemia -Protonix 40mg PO BID #dispo -admit to ICU Problem List - Problem (1) MELISSA (acute kidney injury) Code(s): N17.9 - ACUTE KIDNEY FAILURE, UNSPECIFIED (2) AML (acute myeloblastic leukemia) Code(s): C92.00 - ACUTE MYELOBLASTIC LEUKEMIA, NOT HAVING ACHIEVED REMISSION (3) Lactic acidosis Code(s): E87.2 - ACIDOSIS (4) Symptomatic anemia Code(s): D64.9 - ANEMIA, UNSPECIFIED (5) Syncope Code(s): R55 - SYNCOPE AND COLLAPSE (6) Lung cancer Code(s): C34.90 - MALIGNANT NEOPLASM OF UNSP PART OF UNSP BRONCHUS OR LUNG Qualifiers: Laterality: unspecified laterality (7) Prostate cancer Code(s): C61 - MALIGNANT NEOPLASM OF PROSTATE Visit type - Emergency Visit Emergency Visit: Yes ED Registration Date: 04/17/17 Care time: The patient presented to the Emergency Department on the above date and was hospitalized for further evaluation of their emergent condition. - New Patient This patient is new to me today: Yes Date on this admission: 04/17/17 - Critical Care Critical Care patient: Yes Total Critical Care Time (in minutes): 40 Critical Care Statement: The care of this patient involved high complexity decision making to prevent further life threatening deterioration of the patient 's condition and/or to evaluate & treat vital organ system(s) failure or risk of failure.
[2017-04-17 23:19] LABS: ANION GAP 10 (8-16); CALCIUM 7.2 mg/dL (8.5-10.1); CO2 20 mmol/L (21-32); CREATININE 1.5 mg/dL (0.7-1.3); GLUCOSE,RANDOM 136 mg/dL (74-106)
[2017-04-17 23:35] LABS: MEAN PLT VOLUME 9.1 fl (7.5-11.1); PLATELET COUNT 13 K/MM3 (134-434)
[2017-04-17 23:53] LABS: BLAST 10 % (0-0); PLATELET ESTIMATE MARKEDLY DECREASED (NORMAL); REACTIVE LYMPHOCYTES 1 % (0-80); TOTAL CELLS COUNTED 100
[2017-04-18] MEDS: PIPERACILLIN/TAZOB 3.375 GM/50 ML PRE-DOCKED IVPB SCH ×3 (01:59→17:52)
--- NOTE | 2017-04-18 06:15 | PN ---
Physical Exam: SUBJECTIVE: Patient seen and examinedat bedside. feels slightly better today, off of NRB and on NC. Saturating 90-100s OBJECTIVE: Vital Signs Period Temp Pulse Resp BP Sys/Leigh Pulse Ox Last 24 Hr 98 F-98.6 F 81-97 18-28 91-108/39-52 98-100 GENERAL: The patient is drowsy, in no acute distress. HEAD: Normal with no signs of trauma. EYES: extraocular movements intact, sclera anicteric, conjunctiva clear. No ptosis. NECK: Trachea midline, full range of motion, supple. LUNGS: Breath sounds equal, clear to auscultation bilaterally, no wheezes, no crackles, no accessory muscle use. HEART: Regular rate and rhythm, S1, S2 without murmur, rub or gallop. ABDOMEN: Soft, nontender, nondistended, normoactive bowel sounds, no guarding, no rebound, no hepatosplenomegaly, no masses. EXTREMITIES: 2+ pulses, warm, well-perfused, no edema. NEUROLOGICAL: Cranial nerves II through X grossly intact. Normal speech, gait not observed. PSYCH: Normal mood, normal affect. SKIN: Warm, dry, normal turgor, no rashes or lesions noted Laboratory Results - last 24 hr 04/17/17 04/17/17 04/17/17 13:57 13:57 13:57 WBC RBC Hgb Hct MCV MCH MCHC RDW Plt Count MPV Total Counted Neutrophils % Neutrophils % (Manual) Band Neuts % (Manual) Lymphocytes % Lymphocytes % (Manual) Monocytes % (Manual) Blast Cells % (Manual) Other Cell Type Platelet Estimate Retic Count 1.01 Haptoglobin PT with INR INR Fibrinogen Sodium Potassium Chloride Carbon Dioxide Anion Gap BUN Creatinine Random Glucose Uric Acid Calcium Phosphorus Ferritin 9207.463 H LD Total 770 H Troponin I Vitamin B12 04/17/17 04/17/17 04/17/17 14:00 15:00 20:00 WBC 18.5 H RBC 1.67 L D Hgb 4.8 L* D Hct 14.4 L MCV 86.3 MCH 28.6 MCHC 33.1 RDW 16.8 H D Plt Count 13 L* D MPV 9.1 Total Counted 100 Neutrophils % No Result Required. Neutrophils % (Manual) 71 Band Neuts % (Manual) 12 H Lymphocytes % No Result Required. Lymphocytes % (Manual) 5 L D Monocytes % (Manual) 1 L Blast Cells % (Manual) 10 H D Other Cell Type Platelet Estimate Markedly decreased Retic Count Haptoglobin 180 PT with INR INR Fibrinogen Sodium Potassium Chloride Carbon Dioxide Anion Gap BUN Creatinine Random Glucose Uric Acid Calcium Phosphorus Ferritin LD Total Troponin I Vitamin B12 386 04/17/17 04/17/17 04/17/17 20:00 20:00 20:00 WBC RBC Hgb Hct MCV MCH MCHC RDW Plt Count MPV Total Counted Neutrophils % Neutrophils % (Manual) Band Neuts % (Manual) Lymphocytes % Lymphocytes % (Manual) Monocytes % (Manual) Blast Cells % (Manual) Other Cell Type Platelet Estimate Retic Count Haptoglobin PT with INR INR Fibrinogen 259.0 Sodium Potassium Chloride Carbon Dioxide Anion Gap BUN Creatinine Random Glucose Uric Acid 10.5 H Calcium Phosphorus 4.3 Ferritin LD Total 699 H Troponin I < 0.02 Vitamin B12 04/17/17 04/17/17 22:00 22:00 WBC RBC Hgb Hct MCV MCH MCHC RDW Plt Count MPV Total Counted Neutrophils % Neutrophils % (Manual) Band Neuts % (Manual) Lymphocytes % Lymphocytes % (Manual) Monocytes % (Manual) Blast Cells % (Manual) Other Cell Type Platelet Estimate Retic Count Haptoglobin PT with INR 18.80 H INR 1.69 H Fibrinogen Sodium 142 Potassium 4.5 Chloride 112 H Carbon Dioxide 20 L D Anion Gap 10 BUN 82 H Creatinine 1.5 H Random Glucose 136 H Uric Acid Calcium 7.2 L Phosphorus Ferritin LD Total Troponin I Vitamin B12 Active Medications Generic Name Dose Route Start Last Admin Trade Name Freq PRN Reason Stop Dose Admin Allopurinol 100 mg 04/18/17 10:00 Zyloprim - PO DAILY DENISSE Chlorhexidine Gluconate 1 applic 04/17/17 22:00 04/17/17 22:21 Hibiclens For Decolonization - TP 1 applic HS DENISSE Administration Sodium Chloride 1,000 mls @ 75 mls/hr 04/17/17 18:30 04/17/17 19:00 Normal Saline - IV 75 mls/hr ASDIR DENISSE Administration Mupirocin 1 applic 04/17/17 22:00 04/17/17 22:21 Bactroban Ointment (For Decolonization) - NS 04/22/17 21:59 1 applic BID DENISSE Administration Oxycodone HCl 10 mg 09/26/17 21:12 Roxicodone - PO Q6HPO PRN PAIN Pantoprazole Sodium 40 mg 04/17/17 22:00 04/17/17 22:08 Protonix - PO 40 mg BID DENISSE Administration Piperacillin Sod/Tazobactam Sod 3.375 gm 04/17/17 18:00 04/18/17 01:59 Zosyn 3.375gm Ivpb (Pre-Docked) IVPB 3.375 gm Q8H-IV DENISSE Administration Protocol Sodium Bicarbonate 650 mg 04/17/17 22:00 04/17/17 22:08 Sodium Bicarbonate - PO 650 mg BID DENISSE Administration Tamsulosin HCl 0.4 mg 04/18/17 08:30 Flomax - PO DAILY@0830 [facility] ASSESSMENT/PLAN: This is a 77 yo M w/ PMH of multiple malignacies who was BIBEMS c/o increased SOB, cough, decreased PO intake and lethargy for 1 week. He is admitted to the ICU for acute hypoxemic respiratory failure 2/2 severe symptomatic anemia and MELISSA. #Severe symptomatic anemia -last Hb 6 -s/p total 6u PRBC, 1u Plt -f/u rpt CBC after transfusion completed. -serum FE 114, TIBC 124, Ferritin 9270, reticulocytes 1.1, Vit b12 386 -Haptoglobin 180, LDH 629 -hematology consult -guiac positive -GI consult: likely not occult bleed; no need for emergent workup #Severe Sepsis likely 2/2 RLL PNA -CXR showing RLL consolidation/atalectasis -ucx, bcx negative to date -ID consult, will follow reccs -s/p vancomycin, zosyn in ED -on empiric zosyn #Acute hypoxemic respiratory failure likely 2/2 severe symptomatic anemia vs PNA -saturating between 75 and 90 on NRB during interview -supplemental O2 to maintain saturation >90% #leukocytosis likley 2/2 PNA vs malignancy -22.6 in ED -ID consult -s/p vancomycin, zosyn in ED -improving; 16.4 today #MELISSA likely 2/2 anemia vs severe sepsis vs post renal causes -BUN 83, Cr 1.8 in ED -baseline creatinine .8 -IVF -renal/bladder US r/o obstruction -kerr catheter in place #thrombocytopenia likely 2/2 malignancy -platelets 25 in ED -hematology consult -plt transfusion overnight -plt now 52 #lactic acidosis likley 2/2 severe sepsis vs anemia- resolved -LA 1.5 today #FEN -NS @ 75 -monitor lytes -NPO #Prophy -SCDs; anticoagulation c/i in setting of possible bleed and anemia -Protonix 40mg PO BID #dispo -admit to ICU Problem List - Problems (1) MELISSA (acute kidney injury) Code(s): N17.9 - ACUTE KIDNEY FAILURE, UNSPECIFIED (2) AML (acute myeloblastic leukemia) Code(s): C92.00 - ACUTE MYELOBLASTIC LEUKEMIA, NOT HAVING ACHIEVED REMISSION (3) Lactic acidosis Code(s): E87.2 - ACIDOSIS (4) Symptomatic anemia Code(s): D64.9 - ANEMIA, UNSPECIFIED (5) Syncope Code(s): R55 - SYNCOPE AND COLLAPSE (6) Lung cancer Code(s): C34.90 - MALIGNANT NEOPLASM OF UNSP PART OF UNSP BRONCHUS OR LUNG Qualifiers: Laterality: unspecified laterality (7) Prostate cancer Code(s): C61 - MALIGNANT NEOPLASM OF PROSTATE Visit type - Emergency Visit Emergency Visit: Yes ED Registration Date: 04/17/17 Care time: The patient presented to the Emergency Department on the above date and was hospitalized for further evaluation of their emergent condition. - New Patient This patient is new to me today: No - Critical Care Critical Care patient: No
[2017-04-18 06:28] LABS: MCH 28.6 pg (25.7-33.7); MCHC 34.4 g/dl (32.0-35.9); MEAN CELL VOLUME 83.2 fl (80-96); MEAN PLT VOLUME 7.4 fl (7.5-11.1); PLATELET COUNT 52 K/MM3 (134-434); RDW 15.2 % (11.9-15.9); WHITE BLOOD COUNT 16.4 K/mm3 (4.0-10.0)
[2017-04-18 06:41] LABS: INR 1.57 (0.82-1.09); PROTHROMBIN TIME (PATIENT) 17.4 SEC (9.98-11.88)
[2017-04-18 06:52] LABS: ALBUMIN 2.2 g/dl (3.4-5.0); ANION GAP 8 (8-16); CO2 22 mmol/L (21-32); CREATININE 1.2 mg/dL (0.7-1.3); GLUCOSE,RANDOM 123 mg/dL (74-106); LDH 629 U/L (87-241); MAGNESIUM 2.2 mg/dL (1.8-2.4); PHOSPHOROUS 3.2 mg/dL (2.5-4.9); SGOT/AST 29 U/L (15-37); SGPT/ALT 27 U/L (12-78)
[2017-04-18 06:53] LABS: ALK PHOS 53 U/L (45-117); BILIRUBIN,TOTAL 0.8 mg/dL (0.2-1.0); CALCIUM 7.3 mg/dL (8.5-10.1); TOT PROT 4.4 g/dl (6.4-8.2)
--- NOTE | 2017-04-18 07:02 | CONS ---
DATE OF CONSULTATION: DATE OF DICTATION: 04/17/2017 REQUESTED BY: The hospitalist service. HISTORY OF PRESENT ILLNESS: History was from the patient, who right now is in the ICU, quite tired and intermittently gives a history. History as well is obtained from the chart and from speaking with Dr. Wright. I spoke with the food prep worker. This is a 77-year-old man with a history of stage 4 non-small cell lung cancer. He has a history of prostate cancer, AML, did not tolerate chemotherapy, who has a history of anemia as well and has received blood transfusions in the past, who was admitted with worsening generalized weakness as well as shortness of breath and cough. He has had several weeks of these symptoms. He was seen at [facility] emergency room and was prescribed Levaquin on April 11 which he filled at the pharmacy. He denies any fevers or chills at home. He notes he has a cough that is intermittently productive. He has some chest pain and shortness of breath with exertion. He had an episode of syncope while he was entering the ambulance with EMS. ALLERGIES: He has no known drug allergies. MEDICATIONS: Include Colace t.i.d., Senna b.i.d., Levaquin 750 mg daily, oxycodone 10 mg q.4 hours, Percocet 5/325 p.r.n. FAMILY HISTORY: Multiple family members with cancer, sister with breast cancer , a brother who is with AML. PAST MEDICAL HISTORY: He was last in our hospital in October 2015 when he was treated for pneumonia with Rocephin and Zithromax. SOCIAL HISTORY: He is . He lives alone. 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 He has no known HIV risk factors. He has no recent travel. REVIEW OF SYSTEMS: Notable for shortness of breath, cough, sputum production. He has no abdominal pain or chest pain at this time. He denies any diarrhea or dysuria. PHYSICAL EXAMINATION: Vital Signs: He is afebrile, temperature is 98.5, pulse of 97, blood pressure 108/45, respiratory rate is 26, he is wearing 100% nonrebreather, he is saturating 100%. General: He is a thin man in no acute distress. HEENT: He is normocephalic. His eyes are anicteric. He has dry oral mucosa. He has no thrush. Neck: Supple. Lungs: Have diminished breath sounds at the bases. He has some crackles at the right base. Heart: Tachycardic. Abdomen: Soft, nontender. Extremities: Without edema. Skin: He has no rash. LABORATORIES: Notable for a white count of 22.6 with 62% neutrophils and 27% blasts, hemoglobin is 3 with an MCV of 96, platelets are 25,000. INR is 1.7. His BUN is 83 and creatinine is 1.8 with a lactic acid of 9.8. His liver function tests are normal and albumin is 2.5. His urinalysis is negative. His stool occult blood is positive. Blood cultures, urine cultures have been sent. Chest x-ray reveals a right lower lobe infiltrate with effusion. There is a right pleural effusion with consolidation and atelectasis of the right lower lobe. The left lung is clear. ASSESSMENT AND RECOMMENDATIONS: 1. In summary, this is a 77-year-old man admitted with hypotension, severe anemia, cannot rule out sepsis, with right lower lobe infiltrate, cough, and leukocytosis. He apparently has been hospitalized at [facility] as well. He received vancomycin and Zosyn in the emergency room. He was on Levaquin as an outpatient. He has acute kidney injury. Would check vancomycin level and continue Zosyn. Would obtain sputum culture and urinary antigens. His leukocytosis may be partly reactive due to the anemia as well as due to his AML. He has blasts. 2. Severe anemia with thrombocytopenia. Workup and management per Hematology. Currently is receiving blood transfusion. 3. History of prostate cancer, lung cancer, and acute myelogenous leukemia. Overall prognosis is quite poor. Forty minutes were spent in the care of this critically ill patient. The case was discussed with Dr. Velazquez and Dr. Wright. Jon [id number] CHERYL
--- NOTE | 2017-04-18 07:09 | PN ---
Progress Note, Physician Chief Complaint: ID ICU follow up for this 77 year old male wit diagnosis of Stage IV lung cancer S/ P Nivolumab early Mar. Also history of AML Admitted hypoxemia tachycardic hypotensive with severe anemia with Hgb of 3. Diagnosis of sepsis considered with pneumonia thought to be possible source. Empiric therapy with Vancomycin 1 dose and Pip Tazo day 1 therapy given. Does not require pressors Currently alert in NAD notes minimal couph with some sputum production. Never febrile since admission - Current Medication List Current Medications: Active Medications Allopurinol (Zyloprim -) 100 mg PO DAILY [facility] Chlorhexidine Gluconate (Hibiclens For Decolonization -) 1 applic TP HS [facility] Last Admin: 04/17/17 22:21 Dose: 1 applic Sodium Chloride (Normal Saline -) 1,000 mls @ 75 mls/hr IV ASDIR [facility] Last Admin: 04/17/17 19:00 Dose: 75 mls/hr Mupirocin (Bactroban Ointment (For Decolonization) -) 1 applic NS BID [facility] Stop: 04/22/17 21:59 Last Admin: 04/17/17 22:21 Dose: 1 applic Oxycodone HCl (Roxicodone -) 10 mg PO Q6HPO PRN PRN Reason: PAIN Pantoprazole Sodium (Protonix -) 40 mg PO BID [facility] Last Admin: 04/17/17 22:08 Dose: 40 mg Piperacillin Sod/Tazobactam Sod (Zosyn 3.375gm Ivpb (Pre-Docked)) 3.375 gm IVPB Q8H-IV [facility] PRN Reason: Protocol Last Admin: 04/18/17 01:59 Dose: 3.375 gm Sodium Bicarbonate (Sodium Bicarbonate -) 650 mg PO BID [facility] Last Admin: 04/17/17 22:08 Dose: 650 mg Tamsulosin HCl (Flomax -) 0.4 mg PO DAILY@0830 [facility] - Objective Vital Signs: Vital Signs Temperature 98.6 F 04/18/17 06:10 Pulse Rate 81 04/18/17 06:10 Respiratory Rate 21 04/18/17 06:10 Blood Pressure 101/49 04/18/17 06:10 O2 Sat by Pulse Oximetry (%) 98 04/18/17 00:18 Constitutional: Yes: Thin Neck: Yes: WNL, Supple Cardiovascular: Yes: WNL, Regular Rate and Rhythm, S1, S2 Respiratory: Yes: WNL, Regular, CTA Bilaterally Gastrointestinal: Yes: WNL, Normal Bowel Sounds, Soft. No: Tenderness, Tenderness, Rebound Edema: No Labs: CBC, BMP 04/18/17 06:05 04/18/17 06:05 INR, PTT INR 1.69 (0.82-1.09) H 04/17/17 22:00 Fibrinogen 259.0 mg/dL (238-498) 04/17/17 20:00 Assessment/Plan Microbiology Laboratory Tests 04/17/17 04/17/17 04/17/17 11:40 20:00 22:00 WBC 18.5 H Hgb 4.8 L* D Plt Count 13 L* D Neutrophils % (Manual) 71 Band Neuts % (Manual) 12 H Lymphocytes % No Result Required. Monocytes % (Manual) 1 L Blast Cells % (Manual) 10 H D INR 1.69 H BUN Creatinine Creat Clearance w eGFR Lactic Acid 9.8 H* Total Bilirubin AST ALT Alkaline Phosphatase LD Total Vancomycin Pre-Dose 04/18/17 04/18/17 04/18/17 06:00 06:05 06:05 WBC Pending Hgb Pending Plt Count Pending Neutrophils % (Manual) Band Neuts % (Manual) Lymphocytes % Monocytes % (Manual) Blast Cells % (Manual) INR BUN 72 H Creatinine 1.2 Creat Clearance w eGFR 59.02 Lactic Acid Total Bilirubin 0.8 D AST 29 D ALT 27 D Alkaline Phosphatase 53 LD Total 629 H Vancomycin Pre-Dose Pending Assessment Presumptive sepsis on basis of hypotension tachypnea and RLL atalectasis/ effusion though elevated lactic acid and these findings may be related to other causes. Stage IV lung CA post Nivolumab Sept Acute Myelogenous Leukemia on no therapy currently Severe anemia thrombocytopenia post PRBC and platelet transfusion related to AML Acute kidney injury Plan Await blood cultures Obtain sputum culture for fungus and c/s Fungitell and Galactomannin Repeat labs CBC pending Critical care time spent today 40 minutes. Joseph LAZARO
--- NOTE | 2017-04-18 07:15 | CONSULT ---
Consult Consult Specialty:: GI Referred by:: ICU team Reason for Consultation:: severe anemia, hemoccult pos stools - History of Present Illness History of Present Illness: Chart reviewed. Recent events noted. ICU, ID and Hem/Onc consultations noted. Stage IV lung adenocarcinoma, AML with blasts, prostate cancer. Admitted with hypotention, shortness of breath, cough, Hgb 3, normal MCV, high RDW, thrombocytopenia, leukocytosis and lethargy. Pleural effusion on XCR, Hemoccult positive stools on exam, however no external signs of bleeding reported, or noted. Patient reports no recent blood in stool, black, tarry stools, hemaemessis, diarhhea, dysphagia, odynophagia, abdominal pain, or cramps. The patient was transfused by his oncologist in January for Hgb 7 - History Source History Provided By: Patient, Medical Record Limitations to Obtaining History: Other (lethrgic, but easily arrousable and coherent) - Past Medical History [employer]: Yes: Syncope Pulmonary: Yes: Other (Patient reports Lung Cancer receiving weekly chemo) Renal/: Yes: Other (Prostate CA receiving hormonal Rx under Dr. Xiomara Peter) Additional Medical History: Patient is receiving hormonal Rx for prostate CA and reports having a second primary malignancy of the lung for which he receives weekly IV chemoRx in [place] [facility] - Alcohol/Substance Use Hx Alcohol Use: No History of Substance Use: reports: None - Smoking History Smoking history: Unknown if ever smoked Have you smoked in the past 12 months: No Aproximately how many cigarettes per day: 0 - Social History Usual Living Arrangement: Alone ADL: Independent History of Recent Travel: No Home Medications - Allergies Allergies/Adverse Reactions: Allergies Allergy/AdvReac Type Severity Reaction Status Date / Time No Known Allergies Allergy Verified 04/17/17 11:21 - Home Medications Home Medications: Ambulatory Orders Docusate Sodium [Colace -] 100 mg PO DAILY 04/17/17 Oxycodone HCl 10 mg PO Q6H 04/17/17 Sennosides [Senna] 8.6 mg PO DAILY 04/17/17 Tamsulosin HCl [Flomax] 0.4 mg PO DAILY 04/17/17 Family Disease History - Family Disease History Family History: Unremarkable (noncontributing) Review of Systems Findings/Remarks: Admission H&P reviewed and findings noted - Review of Systems Constitutional: reports: Other (see admission H&P for details) Gastrointestinal: denies: Constipation, Diarrhea, Dysphagia, Indigestion, Melena , Nausea, Rectal Bleeding, Vomiting, Vomiting Blood Integumentary: denies: Blister, Change in Color Physical Exam Vital Signs: Vital Signs Temperature 98.6 F 04/18/17 06:10 Pulse Rate 81 04/18/17 06:10 Respiratory Rate 21 04/18/17 06:10 Blood Pressure 101/49 04/18/17 06:10 O2 Sat by Pulse Oximetry (%) 98 04/18/17 00:18 Constitutional: Yes: No Distress, Calm Eyes: Yes: Conjunctiva Clear HENT: Yes: Atraumatic, Normocephalic Neck: Yes: Supple Cardiovascular: Yes: Regular Rate and Rhythm. No: JVD Respiratory: Yes: Regular, On Nasal O2, Other (equal air entry b/l) Gastrointestinal: Yes: Normal Bowel Sounds, Soft, Other (No bowel movements in the last 16 hrs). No: Abdomen, Obese, Ascites, Distention, Hematemesis, Hepatomegaly, Melena, Palpable Mass, Pulsatile Mass, Rectal Bleeding, Tenderness , Tenderness, Epigastrium, Tenderness, Rebound, Vomiting ...Rectal Exam: Yes: Guaiac Positive (on admission) Extremities: No: Cold, Deformity Integumentary: Yes: Other (no echymosis). No: Jaundice, Petechiae, Rash Neurological: Yes: Lethargy Psychiatric: No: Agitated Labs: Current Medications Generic Name Dose Route Start Last Admin Trade Name Freq PRN Reason Stop Dose Admin Allopurinol 100 mg 04/18/17 10:00 Zyloprim - PO DAILY DENISSE Chlorhexidine Gluconate 1 applic 04/17/17 22:00 04/17/17 22:21 Hibiclens For Decolonization - TP 1 applic HS DENISSE Administration Sodium Chloride 1,000 mls @ 75 mls/hr 04/17/17 18:30 04/17/17 19:00 Normal Saline - IV 75 mls/hr ASDIR DENISSE Administration Mupirocin 1 applic 04/17/17 22:00 04/17/17 22:21 Bactroban Ointment (For Decolonization) - NS 04/22/17 21:59 1 applic BID DENISSE Administration Oxycodone HCl 10 mg 04/17/17 21:12 Roxicodone - PO Q6HPO PRN PAIN Pantoprazole Sodium 40 mg 04/17/17 22:00 04/17/17 22:08 Protonix - PO 40 mg BID DENISSE Administration Piperacillin Sod/Tazobactam Sod 3.375 gm 04/17/17 18:00 04/18/17 01:59 Zosyn 3.375gm Ivpb (Pre-Docked) IVPB 3.375 gm Q8H-IV DENISSE Administration Protocol Sodium Bicarbonate 650 mg 04/17/17 22:00 04/17/17 22:08 Sodium Bicarbonate - PO 650 mg BID DENISSE Administration Tamsulosin HCl 0.4 mg 04/18/17 08:30 Flomax - PO DAILY@0830 [facility] Home Medications Medication Instructions Recorded Docusate Sodium [Colace -] 100 mg PO DAILY 04/17/17 Oxycodone HCl 10 mg PO Q6H 04/17/17 Sennosides [Senna] 8.6 mg PO DAILY 04/17/17 Tamsulosin HCl [Flomax] 0.4 mg PO DAILY 04/17/17 Vital Signs (72 hours) 04/17/17 04/17/17 04/17/17 10:56 12:26 13:07 Temperature 99.6 F 98.4 F Pulse Rate 109 H 104 H 98 H Respiratory 36 H 32 H 30 H Rate Blood Pressure 106/60 126/61 82/71 O2 Sat by Pulse 85 L 96 100 Oximetry (%) 04/17/17 04/17/17 04/17/17 14:20 15:26 16:01 Temperature 98 F 98.4 F Pulse Rate 95 H 96 H Respiratory 18 22 Rate Blood Pressure 98/47 101/39 O2 Sat by Pulse 100 Oximetry (%) 04/17/17 04/17/17 04/17/17 17:00 20:00 22:00 Temperature 98.5 F 98.2 F Pulse Rate 97 H 93 H 92 H Respiratory 26 H 24 24 Rate Blood Pressure 108/45 91/43 96/41 O2 Sat by Pulse Oximetry (%) 04/17/17 04/18/17 04/18/17 23:00 00:18 00:39 Temperature Pulse Rate 88 89 Respiratory 24 22 Rate Blood Pressure 94/52 103/49 O2 Sat by Pulse 98 Oximetry (%) 04/18/17 04/18/17 04/18/17 02:00 04:00 06:10 Temperature 98.3 F 98.5 F 98.6 F Pulse Rate 93 H 87 81 Respiratory 28 H 26 H 21 Rate Blood Pressure 102/52 98/46 101/49 O2 Sat by Pulse Oximetry (%) Active Orders 24 hr Category Date Time Status Admission Certification Once Admission 04/17/17 14:01 Active Decision to Admit to Hospital Routine Admission 04/17/17 13:07 Active DIRECT ALAN Routine Blood Bank 04/18/17 06:05 Received Perry Donor Platelets [PLATELETS- SINGLE DONOR IRR] Blood Bank 04/17/17 11:40 Results Routine PACKED CELLS Stat Blood Bank 04/17/17 11:40 Results TYPE AND SCREEN Stat Blood Bank 04/17/17 11:40 Results ECHO W/DOPPLER,M MODE & COLOR* [CARD] Routine Cardiology 04/17/17 16:15 Ordered Activity, Bedrest Continuous Care 04/17/17 14:01 Active Cardiac Monitoring NOW Care 04/17/17 14:01 Active Bartlett Catheter, Daily Care DAILY Care 04/18/17 05:39 Active Bartlett catheter, Maintain ASDIR Care 04/18/17 05:38 Active Intake and Output 0600,1500,2300 Care 04/17/17 14:01 Active Notify Physician As directed Care 04/17/17 11:24 Active RN - See BBK Order, Platelets ASDIR Care 04/17/17 21:47 Active RN-See BBK Order, Packed Cells ASDIR Care 04/17/17 12:11 Active SCDs, apply Both legs Care 04/17/17 14:10 Active Vital Signs [id number] Care 04/17/17 11:24 Active Vital Signs Q2H Care 04/17/17 14:01 Active Physician Consultation Physician 1 Cons 04/17/17 12:17 Ordered Physician Consultation Physician 1 Cons 04/17/17 14:40 Ordered NPO [Nothing by Mouth] [DT] Diet 04/17/17 17:51 Active ASPERGILLUS GALACTOMANNAN AG Routine Lab 04/19/17 06:00 Ordered B D GLUCAN(FUNGITELL) Routine Lab 04/19/17 06:00 Ordered CBC [COMPLETE BLOOD COUNT] Routine Lab 04/18/17 02:00 Ordered FE & TIBC Routine Lab 04/17/17 14:00 Received FUNGAL CULTURE Routine Lab 04/18/17 07:21 Uncollected G-6-PD, QUANT, BLOOD AND RBC Routine Lab 04/18/17 06:05 Received Allopurinol [Zyloprim -] Medication 04/18/17 10:00 Active 100 mg PO DAILY Chlorhexidine Gluconate [Hibiclens For Decolonization - Medication 04/17/17 22 :00 Active ] 1 applic TP HS Mupirocin Ointment [Bactroban Ointment (For Medication 04/17/17 22:00 Active Decolonization) -] 1 applic NS BID Oxycodone HCl [Roxicodone -] Medication 04/17/17 21:12 Active 10 mg PO Q6HPO PRN Pantoprazole Sodium [Protonix -] Medication 04/17/17 22:00 Active 40 mg PO BID Piperacillin/Tazob 3.375 gm [Zosyn 3.375GM Ivpb (Pre- Medication 04/17/17 18: 00 Active Docked)] 3.375 gm IVPB Q8H-IV Sodium Bicarbonate - Medication 04/17/17 22:00 Active 650 mg PO BID Sodium Chloride [Normal Saline -] 1,000 ml Medication 04/17/17 18:30 Active IV ASDIR Tamsulosin HCl [Flomax -] Medication 04/18/17 08:30 Active 0.4 mg PO DAILY@0830 BLOOD CULTURE Stat Micro 04/17/17 11:24 Received SPUTUM CULTURE Stat Micro 04/17/17 17:59 Uncollected SPUTUM CULTURE Stat Micro 04/18/17 07:22 Uncollected URINE ANTIGENS FOR PNEUMONIA Stat Micro 04/17/17 19:29 Received URINE CULTURE Stat Micro 04/17/17 12:26 Received Saline Lock, Insert As Directed Phy Order 04/17/17 11:24 Ordered VTE Risk Level/Orders Routine Phy Order 04/17/17 14:01 Ordered CHEST X-RAY PORTABLE* [RAD] Routine Radiology 04/18/17 06:00 Taken Reminder: new phy cons See Order Reminders 04/17/17 14:40 Ordered Reminder: new phy cons See Order Reminders 04/17/17 16:15 Ordered Reminder: new phy cons See Order Reminders 04/17/17 17:50 Ordered Oxygen Therapy Nasal Cannula 2 lpm [employer] Specialist 04/17/17 11:24 Ordered Oxygen Therapy Nasal Cannula 3 lpm [employer] Specialist 04/17/17 18:15 Ordered Laboratory Tests 04/17/17 04/17/17 04/17/17 11:40 11:40 11:40 WBC 22.6 H D RBC 0.98 L D Hgb 3.0 L* D Hct 9.5 L MCV 96.5 H MCH 30.3 MCHC 31.4 L RDW 19.2 H D Plt Count 25 L* D MPV 9.3 D Total Counted 100 Neutrophils % No Result Required. Neutrophils % (Manual) 62 Band Neuts % (Manual) Lymphocytes % No Result Required. Lymphocytes % (Manual) 7 L Monocytes % (Manual) 1 L Myelocytes % (Man) 2 Blast Cells % (Manual) 27 H Other Cell Type Platelet Estimate Markedly decreased Anisocytosis 2+ Microcytosis 1+ Macrocytosis 1+ Tear Drop Cells 1+ Ovalocytes 2+ Retic Count Haptoglobin PT with INR 18.90 H INR 1.70 H PTT (Actin FS) 28.6 Fibrinogen VBG pH 7.33 POC VBG pCO2 26.6 L POC VBG pO2 48.6 H Mixed VBG HCO3 13.8 L* Sodium Potassium Chloride Carbon Dioxide Anion Gap BUN Creatinine Creat Clearance w eGFR Random Glucose Lactic Acid Uric Acid Calcium Phosphorus Magnesium Ferritin Total Bilirubin AST ALT Alkaline Phosphatase LD Total Creatine Kinase Troponin I Total Protein Albumin Lipase Vitamin B12 Urine Color Urine Appearance Urine pH Ur Specific [place] Urine Protein Urine Glucose (UA) Urine Ketones Urine Blood Urine Nitrite Urine Bilirubin Urine Urobilinogen Stool Occult Blood Vancomycin Pre-Dose Blood Type Antibody Screen Crossmatch 04/17/17 04/17/17 04/17/17 11:40 11:40 11:40 WBC RBC Hgb Hct MCV MCH MCHC RDW Plt Count MPV Total Counted Neutrophils % Neutrophils % (Manual) Band Neuts % (Manual) Lymphocytes % Lymphocytes % (Manual) Monocytes % (Manual) Myelocytes % (Man) Blast Cells % (Manual) Other Cell Type Platelet Estimate Anisocytosis Microcytosis Macrocytosis Tear Drop Cells Ovalocytes Retic Count Haptoglobin PT with INR INR PTT (Actin FS) Fibrinogen VBG pH POC VBG pCO2 POC VBG pO2 Mixed VBG HCO3 Sodium 140 Potassium 5.0 Chloride 109 H Carbon Dioxide 15 L D Anion Gap 16 BUN 83 H D Creatinine 1.8 H D Creat Clearance w eGFR 36.97 Random Glucose 150 H D Lactic Acid 9.8 H* Uric Acid Calcium 7.5 L Phosphorus Magnesium Ferritin Total Bilirubin 0.4 D AST 16 ALT 14 D Alkaline Phosphatase 65 LD Total Creatine Kinase 50 Troponin I < 0.02 D Total Protein 5.1 L D Albumin 2.5 L Lipase Vitamin B12 Urine Color Urine Appearance Urine pH Ur Specific [place] Urine Protein Urine Glucose (UA) Urine Ketones Urine Blood Urine Nitrite Urine Bilirubin Urine Urobilinogen Stool Occult Blood Vancomycin Pre-Dose Blood Type B POSITIVE Antibody Screen Negative Crossmatch See Detail 04/17/17 04/17/17 04/17/17 11:40 12:26 12:26 WBC RBC Hgb Hct MCV MCH MCHC RDW Plt Count MPV Total Counted Neutrophils % Neutrophils % (Manual) Band Neuts % (Manual) Lymphocytes % Lymphocytes % (Manual) Monocytes % (Manual) Myelocytes % (Man) Blast Cells % (Manual) Other Cell Type Platelet Estimate Anisocytosis Microcytosis Macrocytosis Tear Drop Cells Ovalocytes Retic Count Haptoglobin PT with INR INR PTT (Actin FS) Fibrinogen VBG pH POC VBG pCO2 POC VBG pO2 Mixed VBG HCO3 Sodium Potassium Chloride Carbon Dioxide Anion Gap BUN Creatinine Creat Clearance w eGFR Random Glucose Lactic Acid Cancelled Uric Acid Calcium Phosphorus Magnesium 2.3 Ferritin Total Bilirubin AST ALT Alkaline Phosphatase LD Total Creatine Kinase Troponin I Total Protein Albumin Lipase 94 Vitamin B12 Urine Color Yellow Urine Appearance Cloudy Urine pH 5.0 Ur Specific [place] 1.015 Urine Protein Negative Urine Glucose (UA) Negative Urine Ketones Negative Urine Blood Negative Urine Nitrite Negative Urine Bilirubin Negative Urine Urobilinogen Negative Stool Occult Blood Vancomycin Pre-Dose Blood Type Antibody Screen Crossmatch 04/17/17 04/17/17 04/17/17 12:26 13:57 13:57 WBC RBC Hgb Hct MCV MCH MCHC RDW Plt Count MPV Total Counted Neutrophils % Neutrophils % (Manual) Band Neuts % (Manual) Lymphocytes % Lymphocytes % (Manual) Monocytes % (Manual) Myelocytes % (Man) Blast Cells % (Manual) Other Cell Type Platelet Estimate Anisocytosis Microcytosis Macrocytosis Tear Drop Cells Ovalocytes Retic Count 1.01 Haptoglobin PT with INR INR PTT (Actin FS) Fibrinogen VBG pH POC VBG pCO2 POC VBG pO2 Mixed VBG HCO3 Sodium Potassium Chloride Carbon Dioxide Anion Gap BUN Creatinine Creat Clearance w eGFR Random Glucose Lactic Acid Uric Acid Calcium Phosphorus Magnesium Ferritin Total Bilirubin AST ALT Alkaline Phosphatase LD Total 770 H Creatine Kinase Troponin I Total Protein Albumin Lipase Vitamin B12 Urine Color Urine Appearance Urine pH Ur Specific [place] Urine Protein Urine Glucose (UA) Urine Ketones Urine Blood Urine Nitrite Urine Bilirubin Urine Urobilinogen Stool Occult Blood Positive Vancomycin Pre-Dose Blood Type Antibody Screen Crossmatch 04/17/17 04/17/17 04/17/17 13:57 14:00 15:00 WBC RBC Hgb Hct MCV MCH MCHC RDW Plt Count MPV Total Counted Neutrophils % Neutrophils % (Manual) Band Neuts % (Manual) Lymphocytes % Lymphocytes % (Manual) Monocytes % (Manual) Myelocytes % (Man) Blast Cells % (Manual) Other Cell Type Platelet Estimate Anisocytosis Microcytosis Macrocytosis Tear Drop Cells Ovalocytes Retic Count Haptoglobin 180 PT with INR INR PTT (Actin FS) Fibrinogen VBG pH POC VBG pCO2 POC VBG pO2 Mixed VBG HCO3 Sodium Potassium Chloride Carbon Dioxide Anion Gap BUN Creatinine Creat Clearance w eGFR Random Glucose Lactic Acid Uric Acid Calcium Phosphorus Magnesium Ferritin 9207.463 H Total Bilirubin AST ALT Alkaline Phosphatase LD Total Creatine Kinase Troponin I Total Protein Albumin Lipase Vitamin B12 386 Urine Color Urine Appearance Urine pH Ur Specific [place] Urine Protein Urine Glucose (UA) Urine Ketones Urine Blood Urine Nitrite Urine Bilirubin Urine Urobilinogen Stool Occult Blood Vancomycin Pre-Dose Blood Type Antibody Screen Crossmatch 04/17/17 04/17/17 04/17/17 20:00 20:00 20:00 WBC 18.5 H RBC 1.67 L D Hgb 4.8 L* D Hct 14.4 L MCV 86.3 MCH 28.6 MCHC 33.1 RDW 16.8 H D Plt Count 13 L* D MPV 9.1 Total Counted 100 Neutrophils % No Result Required. Neutrophils % (Manual) 71 Band Neuts % (Manual) 12 H Lymphocytes % No Result Required. Lymphocytes % (Manual) 5 L D Monocytes % (Manual) 1 L Myelocytes % (Man) Blast Cells % (Manual) 10 H D Other Cell Type Platelet Estimate Markedly decreased Anisocytosis Microcytosis Macrocytosis Tear Drop Cells Ovalocytes Retic Count Haptoglobin PT with INR INR PTT (Actin FS) Fibrinogen 259.0 VBG pH POC VBG pCO2 POC VBG pO2 Mixed VBG HCO3 Sodium Potassium Chloride Carbon Dioxide Anion Gap BUN Creatinine Creat Clearance w eGFR Random Glucose Lactic Acid Uric Acid 10.5 H Calcium Phosphorus 4.3 Magnesium Ferritin Total Bilirubin AST ALT Alkaline Phosphatase LD Total 699 H Creatine Kinase Troponin I Total Protein Albumin Lipase Vitamin B12 Urine Color Urine Appearance Urine pH Ur Specific [place] Urine Protein Urine Glucose (UA) Urine Ketones Urine Blood Urine Nitrite Urine Bilirubin Urine Urobilinogen Stool Occult Blood Vancomycin Pre-Dose Blood Type Antibody Screen Crossmatch 04/17/17 04/17/17 04/17/17 20:00 22:00 22:00 WBC RBC Hgb Hct MCV MCH MCHC RDW Plt Count MPV Total Counted Neutrophils % Neutrophils % (Manual) Band Neuts % (Manual) Lymphocytes % Lymphocytes % (Manual) Monocytes % (Manual) Myelocytes % (Man) Blast Cells % (Manual) Other Cell Type Platelet Estimate Anisocytosis Microcytosis Macrocytosis Tear Drop Cells Ovalocytes Retic Count Haptoglobin PT with INR 18.80 H INR 1.69 H PTT (Actin FS) Fibrinogen VBG pH POC VBG pCO2 POC VBG pO2 Mixed VBG HCO3 Sodium 142 Potassium 4.5 Chloride 112 H Carbon Dioxide 20 L D Anion Gap 10 BUN 82 H Creatinine 1.5 H Creat Clearance w eGFR Random Glucose 136 H Lactic Acid Uric Acid Calcium 7.2 L Phosphorus Magnesium Ferritin Total Bilirubin AST ALT Alkaline Phosphatase LD Total Creatine Kinase Troponin I < 0.02 Total Protein Albumin Lipase Vitamin B12 Urine Color Urine Appearance Urine pH Ur Specific [place] Urine Protein Urine Glucose (UA) Urine Ketones Urine Blood Urine Nitrite Urine Bilirubin Urine Urobilinogen Stool Occult Blood Vancomycin Pre-Dose Blood Type Antibody Screen Crossmatch 04/18/17 04/18/17 04/18/17 06:00 06:05 06:05 WBC 16.4 H RBC 2.10 L D Hgb 6.0 L* D Hct 17.5 L D MCV 83.2 MCH 28.6 MCHC 34.4 RDW 15.2 Plt Count 52 L D MPV 7.4 L D Total Counted Neutrophils % No Result Required. Neutrophils % (Manual) Band Neuts % (Manual) Lymphocytes % No Result Required. Lymphocytes % (Manual) Monocytes % (Manual) Myelocytes % (Man) Blast Cells % (Manual) Other Cell Type Platelet Estimate Anisocytosis Microcytosis Macrocytosis Tear Drop Cells Ovalocytes Retic Count Haptoglobin PT with INR 17.40 H INR 1.57 H PTT (Actin FS) Fibrinogen VBG pH POC VBG pCO2 POC VBG pO2 Mixed VBG HCO3 Sodium Potassium Chloride Carbon Dioxide Anion Gap BUN Creatinine Creat Clearance w eGFR Random Glucose Lactic Acid Uric Acid Calcium Phosphorus Magnesium Ferritin Total Bilirubin AST ALT Alkaline Phosphatase LD Total Creatine Kinase Troponin I Total Protein Albumin Lipase Vitamin B12 Urine Color Urine Appearance Urine pH Ur Specific [place] Urine Protein Urine Glucose (UA) Urine Ketones Urine Blood Urine Nitrite Urine Bilirubin Urine Urobilinogen Stool Occult Blood Vancomycin Pre-Dose 3.728 L* Blood Type Antibody Screen Crossmatch 04/18/17 04/18/17 06:05 06:05 WBC RBC Hgb Hct MCV MCH MCHC RDW Plt Count MPV Total Counted Neutrophils % Neutrophils % (Manual) Band Neuts % (Manual) Lymphocytes % Lymphocytes % (Manual) Monocytes % (Manual) Myelocytes % (Man) Blast Cells % (Manual) Other Cell Type Platelet Estimate Anisocytosis Microcytosis Macrocytosis Tear Drop Cells Ovalocytes Retic Count Haptoglobin PT with INR INR PTT (Actin FS) Fibrinogen VBG pH POC VBG pCO2 POC VBG pO2 Mixed VBG HCO3 Sodium 144 Potassium 4.1 Chloride 114 H Carbon Dioxide 22 Anion Gap 8 BUN 72 H Creatinine 1.2 Creat Clearance w eGFR 59.02 Random Glucose 123 H Lactic Acid 1.5 Uric Acid Calcium 7.3 L Phosphorus 3.2 D Magnesium 2.2 Ferritin Total Bilirubin 0.8 D AST 29 D ALT 27 D Alkaline Phosphatase 53 LD Total 629 H Creatine Kinase Troponin I Total Protein 4.4 L Albumin 2.2 L Lipase Vitamin B12 Urine Color Urine Appearance Urine pH Ur Specific [place] Urine Protein Urine Glucose (UA) Urine Ketones Urine Blood Urine Nitrite Urine Bilirubin Urine Urobilinogen Stool Occult Blood Vancomycin Pre-Dose Blood Type Antibody Screen Crossmatch Imaging - Results X-ray: Report Reviewed Problem List - Problems (1) GIB (gastrointestinal bleeding) Assessment/Plan: Hemoccult positive stools, however no external signs of acute, recent, significant gastrointestinal bleeding. Minor muciosal erosions in the GI tract are likely responsible for the hemoccult positive stools found on admission. The severe anemia is likely AML, ?PNA/sepsis -related event. Management as per ICU/Onc/ID teams Continue oral, once daily, PPI for now Clear liquid diet today Monitor stools for signs of bleeding Stat EGD/rapid prep colonoscopy if acute, significant GI bleeding noted, or strongly suspected. Will follow daily Code(s): K92.2 - GASTROINTESTINAL HEMORRHAGE, UNSPECIFIED (2) Symptomatic anemia Code(s): D64.9 - ANEMIA, UNSPECIFIED (3) AML (acute myeloblastic leukemia) Code(s): C92.00 - ACUTE MYELOBLASTIC LEUKEMIA, NOT HAVING ACHIEVED REMISSION (4) Abnormal CXR (chest x-ray) Code(s): R93.8 - ABNORMAL FINDINGS ON DIAGNOSTIC IMAGING OF BODY STRUCTURES (5) Lung cancer Code(s): C34.90 - MALIGNANT NEOPLASM OF UNSP PART OF UNSP BRONCHUS OR LUNG Qualifiers: Laterality: unspecified laterality (6) Prostate cancer Code(s): C61 - MALIGNANT NEOPLASM OF PROSTATE Visit type - Emergency Visit Emergency Visit: No - New Patient This patient is new to me today: Yes Date on this admission: 04/18/17 - Critical Care Critical Care patient: No
[2017-04-18 07:44] LABS: TOTAL CELLS COUNTED 100
[2017-04-18 07:47] LABS: BLAST 11 % (0-0); MYELOCYTE 1 % (0-2)
[2017-04-18 07:48] LABS: PLATELET COMMENT2 NO CLOTTING DETECTED
[2017-04-18 07:49] LABS: PLATELET ESTIMATE MARKEDLY DECREASED (NORMAL)
[2017-04-18 08:07] LABS: SERUM IRON 114 ug/dL (38-169); TOTAL IRON BINDING CAPACITY 124 ug/dL (250-450); UIBC 10 ug/dL (111-343)
[2017-04-18] MEDS: PANTOPRAZOLE 40 MG TABLET (FP) PO SCH ×2 (09:25→10:37)
[2017-04-18] MEDS: ALLOPURINOL 100 MG TABLET (FP) PO SCH (09:25)
[2017-04-18] MEDS: TAMSULOSIN HCL 0.4 MG CAP.ER.24H (FP) PO SCH (09:25)
[2017-04-18] MEDS ORDERED: FUROSEMIDE 40 MG/4 ML INJECTABLE VIAL IVPUSH ONE (09:50)
--- NOTE | 2017-04-18 10:28 | PN ---
Progress Note (short form) - Note Progress Note: Patient seen and examined. O/E: General: Much more awake than yesterday, alert and oriented , Thin in NAD. Heent: No LAD Lungs: Anterior auscultation no crackles heard abdomen: soft, NT ND LE: no CCE Temp Pulse Resp BP Pulse Ox 98.3 F 84 22 91/54 98 04/18/17 10:00 04/18/17 10:00 04/18/17 10:00 04/18/17 10:00 04/18/17 00:18 Current Medications Generic Name Dose Route Start Last Admin Trade Name Freq PRN Reason Stop Dose Admin Allopurinol 100 mg 04/18/17 10:00 04/18/17 09:25 Zyloprim - PO 100 mg DAILY DENISSE Administration Chlorhexidine Gluconate 1 applic 04/17/17 22:00 04/17/17 22:21 Hibiclens For Decolonization - TP 1 applic HS DENISSE Administration Mupirocin 1 applic 04/17/17 22:00 04/17/17 22:21 Bactroban Ointment (For Decolonization) - NS 04/22/17 21:59 1 applic BID DENISSE Administration Oxycodone HCl 10 mg 04/17/17 21:12 Roxicodone - PO Q6HPO PRN PAIN Pantoprazole Sodium 40 mg 04/18/17 10:00 Protonix - PO DAILY DENISSE Piperacillin Sod/Tazobactam Sod 3.375 gm 04/17/17 18:00 04/18/17 09:25 Zosyn 3.375gm Ivpb (Pre-Docked) IVPB 3.375 gm Q8H-IV DENISSE Administration Protocol Tamsulosin HCl 0.4 mg 04/18/17 08:30 04/18/17 09:25 Flomax - PO 0.4 mg DAILY@0830 DENISSE Administration CBC, BMP 04/18/17 06:05 04/18/17 06:05 INR, PTT INR 1.57 (0.82-1.09) H 04/18/17 06:05 Fibrinogen 259.0 mg/dL (238-498) 04/17/17 20:00 Assessment/Plan: Stage IV Squamous cell lung Ca ( presently on Nivolumab , last dose, early Mar) AML ( diagnosed in 09/2016 ,s/p "7+3" chemo ,no further Rx, pt declined) Severe sepsis , likely from PNA. -supportive care, PRBC and platelets, 2 more units of prbc today. -Platelet count adequate -will f/u on flow -coags ,will monitor -c/w allopurinol. -ID w/u and abx per ID -he continues to refuse any Rx for his AML, he asked me not to call his sister today. -PT eval when he is a bit more stable -d/w ICU team
[2017-04-18] MEDS: MUPIROCIN 2% TOPICAL OINTMENT FOR DECOLONIZATION NS SCH ×2 (10:36→21:02)
--- NOTE | 2017-04-18 13:21 | PN ---
Teaching Attending Note Name of Resident: Manuela Velazquez ATTENDING PHYSICIAN STATEMENT I saw and evaluated the patient. I reviewed the resident's note and discussed the case with the resident. I agree with the resident's findings and plan as documented. SUBJECTIVE: Pt seen and examined in the ICU. Feels better today, less short of breath. No fevers or chills. Transfused 4 PRBC, Hgb from 3 to 6. OBJECTIVE: Last Vital Signs Temp Pulse Resp BP Pulse Ox 98.3 F 84 22 91/54 98 04/18/17 10:00 04/18/17 10:00 04/18/17 10:00 04/18/17 10:00 04/18/17 00:18 Intake & Output 04/15/17 04/16/17 04/17/17 04/18/17 23:59 23:59 23:59 23:59 Intake Total 1000 699 Output Total 700 1000 Balance 300 -301 Weight 150 lb 159 lb 13.362 oz Gen: less tachypneic Heart: RRR Lung: decreased breath sounds at the bases Abd: soft, nontender Ext: no edema CBC, BMP 04/18/17 06:05 04/18/17 06:05 Active Medications Allopurinol (Zyloprim -) 100 mg PO DAILY [facility] Last Admin: 04/18/17 09:25 Dose: 100 mg Chlorhexidine Gluconate (Hibiclens For Decolonization -) 1 applic TP HS [facility] Last Admin: 04/17/17 22:21 Dose: 1 applic Mupirocin (Bactroban Ointment (For Decolonization) -) 1 applic NS BID [facility] Stop: 04/22/17 21:59 Last Admin: 04/18/17 10:36 Dose: 1 applic Nystatin (Nystatin Oral Suspension -) 500,000 units PO Q6HPO DENISSE Oxycodone HCl (Roxicodone -) 10 mg PO Q6HPO PRN PRN Reason: PAIN Pantoprazole Sodium (Protonix -) 40 mg PO DAILY [facility] Last Admin: 04/18/17 10:37 Dose: 40 mg Piperacillin Sod/Tazobactam Sod (Zosyn 3.375gm Ivpb (Pre-Docked)) 3.375 gm IVPB Q8H-IV DENISSE PRN Reason: Protocol Last Admin: 04/18/17 09:25 Dose: 3.375 gm Polyethylene Glycol (Miralax (For Daily Use) -) 17 gm PO DAILY [facility] Tamsulosin HCl (Flomax -) 0.4 mg PO DAILY@0830 [facility] Last Admin: 04/18/17 09:25 Dose: 0.4 mg ASSESSMENT AND PLAN: Severe Anemia/Thrombocytopenia Hypovolemia s/p PRBC transfusions Lactic Acidosis from above Acute Kidney Injury Syncope AML Stage 4 NSCLC h/o Prostate Ca - monitor CBC - transfuse PRBC, platelets - IVF - monitor urine output, creatinine - trend lactate - echocardiogram given EKG findings - protonix - antibiotics per ID - DVT prophylaxis - ICU monitoring critical care time spent in reviewing chart, evaluating patient and formulating plan 35 min
--- NOTE | 2017-04-18 14:35 | PN ---
Physical Exam: SUBJECTIVE: Patient seen and examined Patient resting in bed NAD. No acute events overnight. Afebrile and hemodynamically stable. S/p 4 U prbc and 1 u Plat overnight. HGB still suboptimal. Clinically improved, appears more alert. Reports decreased fatigue and sob. Denies melena, hematochezia or hematemesis. deneis n/v, hest pain, and pain, palpitations, diarrhea, dysuria. Complains of a mouth sore. OBJECTIVE: Vital Signs Period Temp Pulse Resp BP Sys/Leigh Pulse Ox Last 24 Hr 98.1 F-98.6 F 80-97 21-28 91-108/39-54 98-100 GENERAL: aao x 3 HEAD: Normal with no signs of trauma. EYES: Pupils equal, round and reactive to light, extraocular movements intact, sclera anicteric, conjunctiva pale. EARS, NOSE, THROAT: moist mucous membranes. NECK: supple without JVD LUNGS: R lung reduced breath sounds from base to mid lung worse than yesterday, L lung mild basilar crackles. HEART: Regular rate and rhythm, normal S1 and S2 ABDOMEN: Soft, nontender, not distended, normoactive bowel sounds, midline supraumbilical pulsatile mass MUSCULOSKELETAL: No CVA tenderness. UPPER EXTREMITIES: 2+ pulses, warm, well-perfused. No peripheral edema. LOWER EXTREMITIES: 2+ pulses, warm, well-perfused. No calf tenderness. No peripheral edema. NEUROLOGICAL: Cranial nerves II-XII intact. speech more clear PSYCHIATRIC: Cooperative. Good eye contact. Appropriate mood and affect. SKIN: Warm, dry, improved turgor Laboratory Results - last 24 hr 04/17/17 04/17/17 04/17/17 13:57 13:57 14:00 WBC RBC Hgb Hct MCV MCH MCHC RDW Plt Count MPV Total Counted Neutrophils % Neutrophils % (Manual) Band Neuts % (Manual) Lymphocytes % Lymphocytes % (Manual) Monocytes % (Manual) Myelocytes % (Man) Blast Cells % (Manual) Other Cell Type Platelet Estimate Platelet Comment Haptoglobin PT with INR INR Fibrinogen Sodium Potassium Chloride Carbon Dioxide Anion Gap BUN Creatinine Creat Clearance w eGFR Random Glucose Lactic Acid Uric Acid Calcium Phosphorus Magnesium Iron 114 TIBC 124 L Iron Saturation 92 H Ferritin 9207.463 H Total Bilirubin AST ALT Alkaline Phosphatase LD Total 770 H Troponin I Total Protein Albumin Vitamin B12 Vancomycin Pre-Dose Direct Antiglob Test Crossmatch 04/17/17 04/17/17 04/17/17 14:00 15:00 20:00 WBC 18.5 H RBC 1.67 L D Hgb 4.8 L* D Hct 14.4 L MCV 86.3 MCH 28.6 MCHC 33.1 RDW 16.8 H D Plt Count 13 L* D MPV 9.1 Total Counted 100 Neutrophils % No Result Required. Neutrophils % (Manual) 71 Band Neuts % (Manual) 12 H Lymphocytes % No Result Required. Lymphocytes % (Manual) 5 L D Monocytes % (Manual) 1 L Myelocytes % (Man) Blast Cells % (Manual) 10 H D Other Cell Type Platelet Estimate Markedly decreased Platelet Comment Haptoglobin 180 PT with INR INR Fibrinogen Sodium Potassium Chloride Carbon Dioxide Anion Gap BUN Creatinine Creat Clearance w eGFR Random Glucose Lactic Acid Uric Acid Calcium Phosphorus Magnesium Iron TIBC Iron Saturation Ferritin Total Bilirubin AST ALT Alkaline Phosphatase LD Total Troponin I Total Protein Albumin Vitamin B12 386 Vancomycin Pre-Dose Direct Antiglob Test Crossmatch 04/17/17 04/17/17 04/17/17 20:00 20:00 20:00 WBC RBC Hgb Hct MCV MCH MCHC RDW Plt Count MPV Total Counted Neutrophils % Neutrophils % (Manual) Band Neuts % (Manual) Lymphocytes % Lymphocytes % (Manual) Monocytes % (Manual) Myelocytes % (Man) Blast Cells % (Manual) Other Cell Type Platelet Estimate Platelet Comment Haptoglobin PT with INR INR Fibrinogen 259.0 Sodium Potassium Chloride Carbon Dioxide Anion Gap BUN Creatinine Creat Clearance w eGFR Random Glucose Lactic Acid Uric Acid 10.5 H Calcium Phosphorus 4.3 Magnesium Iron TIBC Iron Saturation Ferritin Total Bilirubin AST ALT Alkaline Phosphatase LD Total 699 H Troponin I < 0.02 Total Protein Albumin Vitamin B12 Vancomycin Pre-Dose Direct Antiglob Test Crossmatch 04/17/17 04/17/17 04/18/17 22:00 22:00 06:00 WBC RBC Hgb Hct MCV MCH MCHC RDW Plt Count MPV Total Counted Neutrophils % Neutrophils % (Manual) Band Neuts % (Manual) Lymphocytes % Lymphocytes % (Manual) Monocytes % (Manual) Myelocytes % (Man) Blast Cells % (Manual) Other Cell Type Platelet Estimate Platelet Comment Haptoglobin PT with INR 18.80 H INR 1.69 H Fibrinogen Sodium 142 Potassium 4.5 Chloride 112 H Carbon Dioxide 20 L D Anion Gap 10 BUN 82 H Creatinine 1.5 H Creat Clearance w eGFR Random Glucose 136 H Lactic Acid Uric Acid Calcium 7.2 L Phosphorus Magnesium Iron TIBC Iron Saturation Ferritin Total Bilirubin AST ALT Alkaline Phosphatase LD Total Troponin I Total Protein Albumin Vitamin B12 Vancomycin Pre-Dose 3.728 L* Direct Antiglob Test Crossmatch 04/18/17 04/18/17 04/18/17 06:05 06:05 06:05 WBC 16.4 H RBC 2.10 L D Hgb 6.0 L* D Hct 17.5 L D MCV 83.2 MCH 28.6 MCHC 34.4 RDW 15.2 Plt Count 52 L D MPV 7.4 L D Total Counted 100 Neutrophils % No Result Required. Neutrophils % (Manual) 75 Band Neuts % (Manual) 4 Lymphocytes % No Result Required. Lymphocytes % (Manual) 7 L Monocytes % (Manual) 2 L Myelocytes % (Man) 1 Blast Cells % (Manual) 11 H Other Cell Type Platelet Estimate Markedly decreased Platelet Comment No clotting detected Haptoglobin PT with INR 17.40 H INR 1.57 H Fibrinogen Sodium 144 Potassium 4.1 Chloride 114 H Carbon Dioxide 22 Anion Gap 8 BUN 72 H Creatinine 1.2 Creat Clearance w eGFR 59.02 Random Glucose 123 H Lactic Acid Uric Acid Calcium 7.3 L Phosphorus 3.2 D Magnesium 2.2 Iron TIBC Iron Saturation Ferritin Total Bilirubin 0.8 D AST 29 D ALT 27 D Alkaline Phosphatase 53 LD Total 629 H Troponin I Total Protein 4.4 L Albumin 2.2 L Vitamin B12 Vancomycin Pre-Dose Direct Antiglob Test Crossmatch 04/18/17 04/18/17 06:05 06:05 WBC RBC Hgb Hct MCV MCH MCHC RDW Plt Count MPV Total Counted Neutrophils % Neutrophils % (Manual) Band Neuts % (Manual) Lymphocytes % Lymphocytes % (Manual) Monocytes % (Manual) Myelocytes % (Man) Blast Cells % (Manual) Other Cell Type Platelet Estimate Platelet Comment Haptoglobin PT with INR INR Fibrinogen Sodium Potassium Chloride Carbon Dioxide Anion Gap BUN Creatinine Creat Clearance w eGFR Random Glucose Lactic Acid 1.5 Uric Acid Calcium Phosphorus Magnesium Iron TIBC Iron Saturation Ferritin Total Bilirubin AST ALT Alkaline Phosphatase LD Total Troponin I Total Protein Albumin Vitamin B12 Vancomycin Pre-Dose Direct Antiglob Test Negative Crossmatch See Detail Active Medications Generic Name Dose Route Start Last Admin Trade Name Freq PRN Reason Stop Dose Admin Allopurinol 100 mg 04/18/17 10:00 04/18/17 09:25 Zyloprim - PO 100 mg DAILY [facility]SE Administration Chlorhexidine Gluconate 1 applic 04/17/17 22:00 04/17/17 22:21 Hibiclens For Decolonization - TP 1 applic HS [facility]SE Administration Mupirocin 1 applic 04/17/17 22:00 04/18/17 10:36 Bactroban Ointment (For Decolonization) - NS 04/22/17 21:59 1 applic BID [facility]ISSE Administration Nystatin 500,000 units 04/18/17 12:00 Nystatin Oral Suspension - PO Q6HPO DENISSE Oxycodone HCl 10 mg 04/17/17 21:12 Roxicodone - PO Q6HPO PRN PAIN Pantoprazole Sodium 40 mg 04/18/17 10:00 04/18/17 10:37 Protonix - PO 40 mg DAILY [facility]SE Administration Piperacillin Sod/Tazobactam Sod 3.375 gm 04/17/17 18:00 04/18/17 09:25 Zosyn 3.375gm Ivpb (Pre-Docked) IVPB 3.375 gm Q8H-IV DENISSE Administration Protocol Polyethylene Glycol 17 gm 04/18/17 12:00 Miralax (For Daily Use) - PO DAILY [facility] Tamsulosin HCl 0.4 mg 04/18/17 08:30 04/18/17 09:25 Flomax - PO 0.4 mg DAILY@0830 [facility] Administration ASSESSMENT/PLAN: Patient is a 77 yo M with MPH of AML, 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 in elderly patient -s/p 4 U pRBC Hgb 6; will transfuse 2 more U pRNBC and recheck CBC for Hgb goal >7 -pRBC 2 U followed by repeat CBC *thrombocytopenia 50 improved s/p 1U plat; Plat goal >50 due to current bleed ( stool occult +) -iron studies suggest chronic disease component *Severe lactic acidosis due to demand ishemia resolved -bicarb stopped -IV hydration stopped *tachycardia secondary to anemia has resolved *chest pain secondary to demand ischemia has resolved Oncology *Stage 4 NSCL: Monitor RLL effusion with daily CXR -prophylactic abx coverage -supplemental O2 for sats >92% -continue oxycodone 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 Thank you for this consultative opportunity. Problem List - Problems (1) MELISSA (acute kidney injury) Code(s): N17.9 - ACUTE KIDNEY FAILURE, UNSPECIFIED (2) Symptomatic anemia Code(s): D64.9 - ANEMIA, UNSPECIFIED (3) Syncope Code(s): R55 - SYNCOPE AND COLLAPSE (4) Abnormal CXR (chest x-ray) Code(s): R93.8 - ABNORMAL FINDINGS ON DIAGNOSTIC IMAGING OF BODY STRUCTURES (5) Anemia Code(s): D64.9 - ANEMIA, UNSPECIFIED Qualifiers: Anemia type: unspecified type Qualified Code(s): D64.9 - Anemia, unspecified (6) Lung cancer Code(s): C34.90 - MALIGNANT NEOPLASM OF UNSP PART OF UNSP BRONCHUS OR LUNG Qualifiers: Laterality: unspecified laterality (7) Pancytopenia Code(s): D61.818 - OTHER PANCYTOPENIA (8) Prostate cancer Code(s): C61 - MALIGNANT NEOPLASM OF PROSTATE (9) Weakness Code(s): R53.1 - WEAKNESS (10) Lactic acidosis Code(s): E87.2 - ACIDOSIS (11) Chest pain Code(s): R07.9 - CHEST PAIN, UNSPECIFIED (12) Demand ischemia Code(s): I24.8 - OTHER FORMS OF ACUTE ISCHEMIC HEART DISEASE (13) AML (acute myeloblastic leukemia) Code(s): C92.00 - ACUTE MYELOBLASTIC LEUKEMIA, NOT HAVING ACHIEVED REMISSION (14) GIB (gastrointestinal bleeding) Code(s): K92.2 - GASTROINTESTINAL HEMORRHAGE, UNSPECIFIED Visit type - Emergency Visit Emergency Visit: Yes ED Registration Date: 04/17/17 Care time: The patient presented to the Emergency Department on the above date and was hospitalized for further evaluation of their emergent condition. - New Patient This patient is new to me today: No - Critical Care Critical Care patient: Yes Total Critical Care Time (in minutes): 35 Critical Care Statement: The care of this patient involved high complexity decision making to prevent further life threatening deterioration of the patient 's condition and/or to evaluate & treat vital organ system(s) failure or risk of failure. - Discharge Referral Referred to [facility] Med [facility].: No
[2017-04-18] MEDS: NYSTATIN 500,000 UNITS/5 ML SUSPENSION PO SCH ×2 (15:39→17:52)
[2017-04-18] MEDS: POLYETHYLENE GLYCOL 3350 119 GM BTL PO SCH (15:40)
--- NOTE | 2017-04-18 18:03 | PN ---
Teaching Attending Note Name of Resident: Dale Blas ATTENDING PHYSICIAN STATEMENT I saw and evaluated the patient. I reviewed the resident's note and discussed the case with the resident. I agree with the resident's findings and plan as documented. SUBJECTIVE: Patient is alert. He says he feels better. OBJECTIVE: Vital Signs Period Temp Pulse Resp BP Sys/Leigh Pulse Ox Last 24 Hr 98.1 F-98.6 F 78-93 20-28 90-103/40-54 98-98 HEART: S1S2, RRR LUNGS: Clear ABDOMEN: Soft, non-tender, non-distended, normal BS EXTREMITIES: No edema Current Medications Generic Name Dose Route Start Last Admin Trade Name Freq PRN Reason Stop Dose Admin Allopurinol 100 mg 04/18/17 10:00 04/18/17 09:25 Zyloprim - PO 100 mg DAILY [facility]ISSE Administration Chlorhexidine Gluconate 1 applic 04/17/17 22:00 04/17/17 22:21 Hibiclens For Decolonization - TP 1 applic HS DENISSE Administration Mupirocin 1 applic 04/17/17 22:00 04/18/17 10:36 Bactroban Ointment (For Decolonization) - NS 04/22/17 21:59 1 applic BID DENISSE Administration Nystatin 500,000 units 04/18/17 12:00 04/18/17 17:52 Nystatin Oral Suspension - PO 500,000 units Q6HPO DENISSE Administration Oxycodone HCl 10 mg 04/17/17 21:12 Roxicodone - PO Q6HPO PRN PAIN Pantoprazole Sodium 40 mg 04/18/17 10:00 04/18/17 10:37 Protonix - PO 40 mg DAILY [facility]ISSE Administration Piperacillin Sod/Tazobactam Sod 3.375 gm 04/17/17 18:00 04/18/17 17:52 Zosyn 3.375gm Ivpb (Pre-Docked) IVPB 3.375 gm Q8H-IV DENISSE Administration Protocol Polyethylene Glycol 17 gm 04/18/17 12:00 04/18/17 15:40 Miralax (For Daily Use) - PO 17 gm DAILY [facility]SE Administration Tamsulosin HCl 0.4 mg 04/18/17 08:30 04/18/17 09:25 Flomax - PO 0.4 mg DAILY@0830 [facility]ISSE Administration ASSESSMENT AND PLAN: This is a 77-year-old man with a history of AML, lung cancer, prostate cancer who presented to the ER with weakness, SOB. 1. Severe sepsis secondary to healthcare-associated pneumonia - Continue Zosyn - Lactic acid improved 2. Severe anemia - Transfused 6 units PRBCs - Likely secondary to sepsis, AML - Ferritin and LD are high, B12 and haptoglobin normal - Stool positive for occult blood - Continue Protonix 3. Acute hypoxic respiratory failure secondary to pneumonia, anemia - Oxygen to maintain saturation > 90% 4. Thrombocytopenia - Likely secondary to sepsis, AML - Transfused 1 unit platelets 5. Acute kidney injury secondary to sepsis, hypoperfusion - Improving - Continue to monitor BUN, creatinine 6. Stage IV squamous cell lung cancer 7. Prostate cancer 8. AML 9. DVT prophylaxis - SCDs - No anticoagulation secondary to anemia, thrombocytopenia
[2017-04-18 20:55] LABS: MCH 28.5 pg (25.7-33.7); MCHC 34.5 g/dl (32.0-35.9); MEAN CELL VOLUME 82.7 fl (80-96); MEAN PLT VOLUME 7.9 fl (7.5-11.1); PLATELET COUNT 43 K/MM3 (134-434); WHITE BLOOD COUNT 13.6 K/mm3 (4.0-10.0)
[2017-04-18] MEDS: oxyCODONE HCL 5 MG TABLET PO PRN (21:03)
[2017-04-18] MEDS: CHLORHEXIDINE GLUCONATE 4% CLEANSER FOR DECOLONIZATION TP SCH (21:03)
[2017-04-19] MEDS: PIPERACILLIN/TAZOB 3.375 GM/50 ML PRE-DOCKED IVPB SCH ×3 (03:00→17:23)
[2017-04-19] MEDS: NYSTATIN 500,000 UNITS/5 ML SUSPENSION PO SCH ×5 (04:56→23:57)
--- NOTE | 2017-04-19 06:15 | PN ---
Physical Exam: SUBJECTIVE: Patient seen and examined at bedside. s/p 2 more units PRBC overnight. States breathing is better. now on room air. OBJECTIVE: Vital Signs Period Temp Pulse Resp BP Sys/Leigh Pulse Ox Last 24 Hr 98.0 F-98.7 F 78-86 18-24 90-99/40-59 98-100 GENERAL: The patient is awake, alert, and fully oriented, in no acute distress. HEAD: Normal with no signs of trauma. EYES: extraocular movements intact, sclera anicteric, conjunctiva clear. No ptosis. NECK: Trachea midline, full range of motion, supple. LUNGS: Breath sounds equal, clear to auscultation bilaterally, no wheezes, no crackles, no accessory muscle use. HEART: Regular rate and rhythm, S1, S2 without murmur, rub or gallop. ABDOMEN: Soft, nontender, nondistended, normoactive bowel sounds, no guarding, no rebound, no hepatosplenomegaly, no masses. EXTREMITIES: 2+ pulses, warm, well-perfused, no edema. NEUROLOGICAL: Cranial nerves II through X grossly intact. Normal speech, gait not observed. PSYCH: Normal mood, normal affect. SKIN: Warm, dry, normal turgor, no rashes or lesions noted Laboratory Results - last 24 hr 04/17/17 04/18/17 04/18/17 14:00 06:00 06:05 WBC 16.4 H RBC 2.10 L D Hgb 6.0 L* D Hct 17.5 L D MCV 83.2 MCH 28.6 MCHC 34.4 RDW 15.2 Plt Count 52 L D MPV 7.4 L D Total Counted 100 Neutrophils % No Result Required. Neutrophils % (Manual) 75 Band Neuts % (Manual) 4 Lymphocytes % No Result Required. Lymphocytes % (Manual) 7 L Monocytes % (Manual) 2 L Myelocytes % (Man) 1 Blast Cells % (Manual) 11 H Platelet Estimate Markedly decreased Platelet Comment No clotting detected PT with INR INR Sodium Potassium Chloride Carbon Dioxide Anion Gap BUN Creatinine Creat Clearance w eGFR Random Glucose Lactic Acid Calcium Phosphorus Magnesium Iron 114 TIBC 124 L Iron Saturation 92 H Total Bilirubin AST ALT Alkaline Phosphatase LD Total Total Protein Albumin Vancomycin Pre-Dose 3.728 L* Direct Antiglob Test Crossmatch 04/18/17 04/18/17 04/18/17 06:05 06:05 06:05 WBC RBC Hgb Hct MCV MCH MCHC RDW Plt Count MPV Total Counted Neutrophils % Neutrophils % (Manual) Band Neuts % (Manual) Lymphocytes % Lymphocytes % (Manual) Monocytes % (Manual) Myelocytes % (Man) Blast Cells % (Manual) Platelet Estimate Platelet Comment PT with INR 17.40 H INR 1.57 H Sodium 144 Potassium 4.1 Chloride 114 H Carbon Dioxide 22 Anion Gap 8 BUN 72 H Creatinine 1.2 Creat Clearance w eGFR 59.02 Random Glucose 123 H Lactic Acid 1.5 Calcium 7.3 L Phosphorus 3.2 D Magnesium 2.2 Iron TIBC Iron Saturation Total Bilirubin 0.8 D AST 29 D ALT 27 D Alkaline Phosphatase 53 LD Total 629 H Total Protein 4.4 L Albumin 2.2 L Vancomycin Pre-Dose Direct Antiglob Test Crossmatch 04/18/17 04/18/17 06:05 20:00 WBC 13.6 H RBC 2.58 L D Hgb 7.4 L D Hct 21.4 L D MCV 82.7 MCH 28.5 MCHC 34.5 RDW 15.0 Plt Count 43 L MPV 7.9 Total Counted Neutrophils % Neutrophils % (Manual) Band Neuts % (Manual) Lymphocytes % Lymphocytes % (Manual) Monocytes % (Manual) Myelocytes % (Man) Blast Cells % (Manual) Platelet Estimate Platelet Comment PT with INR INR Sodium Potassium Chloride Carbon Dioxide Anion Gap BUN Creatinine Creat Clearance w eGFR Random Glucose Lactic Acid Calcium Phosphorus Magnesium Iron TIBC Iron Saturation Total Bilirubin AST ALT Alkaline Phosphatase LD Total Total Protein Albumin Vancomycin Pre-Dose Direct Antiglob Test Negative Crossmatch See Detail Active Medications Generic Name Dose Route Start Last Admin Trade Name Freq PRN Reason Stop Dose Admin Allopurinol 100 mg 04/18/17 10:00 04/18/17 09:25 Zyloprim - PO 100 mg DAILY DENISSE Administration Chlorhexidine Gluconate 1 applic 04/17/17 22:00 04/18/17 21:03 Hibiclens For Decolonization - TP 1 applic HS DENISSE Administration Mupirocin 1 applic 04/17/17 22:00 04/18/17 21:02 Bactroban Ointment (For Decolonization) - NS 04/22/17 21:59 1 applic BID DENISSE Administration Nystatin 500,000 units 04/18/17 12:00 04/19/17 04:56 Nystatin Oral Suspension - PO Not Given Q6HPO DENISSE Oxycodone HCl 10 mg 04/17/17 21:12 04/18/17 21:03 Roxicodone - PO 10 mg Q6HPO PRN Administration PAIN Pantoprazole Sodium 40 mg 04/18/17 10:00 04/18/17 10:37 Protonix - PO 40 mg DAILY DENISSE Administration Piperacillin Sod/Tazobactam Sod 3.375 gm 04/17/17 18:00 04/19/17 03:00 Zosyn 3.375gm Ivpb (Pre-Docked) IVPB 3.375 gm Q8H-IV DENISSE Administration Protocol Polyethylene Glycol 17 gm 04/18/17 12:00 04/18/17 15:40 Miralax (For Daily Use) - PO 17 gm DAILY DENISSE Administration Tamsulosin HCl 0.4 mg 04/18/17 08:30 04/18/17 09:25 Flomax - PO 0.4 mg DAILY@0830 DENISSE Administration ASSESSMENT/PLAN: This is a 77 yo M w/ PMH of multiple malignacies who was BIBEMS c/o increased SOB, cough, decreased PO intake and lethargy for 1 week. He is admitted to the ICU for acute hypoxemic respiratory failure 2/2 severe symptomatic anemia and MELISSA. #Severe symptomatic anemia -last Hb 7.5 -s/p total 6u PRBC, 1u Plt this admission -serum FE 114, TIBC 124, Ferritin 9270, reticulocytes 1.1, Vit b12 386 -Haptoglobin 180, LDH 629 -hematology consult -guiac positive -GI consult: likely not occult bleed; no need for emergent workup #Severe Sepsis likely 2/2 RLL PNA -CXR showing RLL consolidation/atalectasis -ucx, bcx negative to date -ID consult, will follow reccs -s/p vancomycin, zosyn in ED -on empiric zosyn #Acute hypoxemic respiratory failure likely 2/2 severe symptomatic anemia vs PNA -saturating between 75 and 90 on NRB during interview -supplemental O2 to maintain saturation >90% #leukocytosis likley 2/2 PNA vs malignancy -22.6 in ED -ID consult -s/p vancomycin, zosyn in ED -improving; 12.2 today #MELISSA likely 2/2 anemia vs severe sepsis vs post renal causes -BUN 83, Cr 1.8 in ED -baseline creatinine .8 -IVF -renal/bladder US r/o obstruction -kerr catheter in place #thrombocytopenia likely 2/2 malignancy -platelets 25 in ED -hematology consult -plt transfusion overnight -plt now 52 #lactic acidosis likley 2/2 severe sepsis vs anemia- resolved -LA 1.5 today #FEN -NS @ 75 -monitor lytes -NPO #Prophy -SCDs; anticoagulation c/i in setting of possible bleed and anemia -Protonix 40mg PO BID #dispo -admit to ICU Problem List - Problems (1) MELISSA (acute kidney injury) Code(s): N17.9 - ACUTE KIDNEY FAILURE, UNSPECIFIED (2) AML (acute myeloblastic leukemia) Code(s): C92.00 - ACUTE MYELOBLASTIC LEUKEMIA, NOT HAVING ACHIEVED REMISSION (3) Lactic acidosis Code(s): E87.2 - ACIDOSIS (4) Symptomatic anemia Code(s): D64.9 - ANEMIA, UNSPECIFIED (5) Syncope Code(s): R55 - SYNCOPE AND COLLAPSE (6) Lung cancer Code(s): C34.90 - MALIGNANT NEOPLASM OF UNSP PART OF UNSP BRONCHUS OR LUNG Qualifiers: Laterality: unspecified laterality (7) Prostate cancer Code(s): C61 - MALIGNANT NEOPLASM OF PROSTATE Visit type - Emergency Visit Emergency Visit: Yes ED Registration Date: 04/17/17 Care time: The patient presented to the Emergency Department on the above date and was hospitalized for further evaluation of their emergent condition. - New Patient This patient is new to me today: No - Critical Care Critical Care patient: Yes Total Critical Care Time (in minutes): 35 Critical Care Statement: The care of this patient involved high complexity decision making to prevent further life threatening deterioration of the patient 's condition and/or to evaluate & treat vital organ system(s) failure or risk of failure.
[2017-04-19 06:23] LABS: MCH 28.7 pg (25.7-33.7); MCHC 34.9 g/dl (32.0-35.9); MEAN CELL VOLUME 82.1 fl (80-96); PLATELET COUNT 37 K/MM3 (134-434); RDW 15.3 % (11.9-15.9); WHITE BLOOD COUNT 12.2 K/mm3 (4.0-10.0)
[2017-04-19 07:10] LABS: ALBUMIN 2.2 g/dl (3.4-5.0); ANION GAP 10 (8-16); CO2 23 mmol/L (21-32)
[2017-04-19 07:16] LABS: ALK PHOS 54 U/L (45-117); BILIRUBIN,TOTAL 0.9 mg/dL (0.2-1.0); CALCIUM 7.3 mg/dL (8.5-10.1); GLUCOSE,RANDOM 93 mg/dL (74-106); PHOSPHOROUS 2.1 mg/dL (2.5-4.9); SGOT/AST 20 U/L (15-37); SGPT/ALT 22 U/L (12-78); TOT PROT 4.5 g/dl (6.4-8.2)
--- NOTE | 2017-04-19 07:40 | PN ---
Progress Note, Physician Chief Complaint: ID Couphing up thick blood tinged sputum Getting Zosyn for pulmonary coverage though I do not think he had sepsis at admission - Current Medication List Current Medications: Active Medications Allopurinol (Zyloprim -) 100 mg PO DAILY [facility] Last Admin: 04/18/17 09:25 Dose: 100 mg Chlorhexidine Gluconate (Hibiclens For Decolonization -) 1 applic TP HS [facility] Last Admin: 04/18/17 21:03 Dose: 1 applic Mupirocin (Bactroban Ointment (For Decolonization) -) 1 applic NS BID [facility] Stop: 04/22/17 21:59 Last Admin: 04/18/17 21:02 Dose: 1 applic Nystatin (Nystatin Oral Suspension -) 500,000 units PO Q6HPO [facility] Last Admin: 04/19/17 07:19 Dose: 500,000 units Oxycodone HCl (Roxicodone -) 10 mg PO Q6HPO PRN PRN Reason: PAIN Last Admin: 04/18/17 21:03 Dose: 10 mg Pantoprazole Sodium (Protonix -) 40 mg PO DAILY [facility] Last Admin: 04/18/17 10:37 Dose: 40 mg Piperacillin Sod/Tazobactam Sod (Zosyn 3.375gm Ivpb (Pre-Docked)) 3.375 gm IVPB Q8H-IV [facility] PRN Reason: Protocol Last Admin: 04/19/17 03:00 Dose: 3.375 gm Polyethylene Glycol (Miralax (For Daily Use) -) 17 gm PO DAILY [facility] Last Admin: 04/18/17 15:40 Dose: 17 gm Tamsulosin HCl (Flomax -) 0.4 mg PO DAILY@0830 [facility] Last Admin: 04/18/17 09:25 Dose: 0.4 mg - Objective Vital Signs: Vital Signs Temperature 98.7 F 04/18/17 23:26 Pulse Rate 81 04/19/17 05:00 Respiratory Rate 18 04/19/17 05:00 Blood Pressure 94/41 04/19/17 05:00 O2 Sat by Pulse Oximetry (%) 100 04/18/17 22:00 Constitutional: Yes: Thin Neck: Yes: WNL, Supple Cardiovascular: Yes: Regular Rate and Rhythm, S1, S2. No: Murmur Respiratory: Yes: WNL, Regular, CTA Bilaterally, Diminished, Other (Diminshed BS righ base) Edema: No Labs: CBC, BMP 04/19/17 05:10 04/19/17 05:10 INR, PTT INR 1.57 (0.82-1.09) H 04/18/17 06:05 Fibrinogen 259.0 mg/dL (238-498) 04/17/17 20:00 Assessment/Plan Microbiology 04/17/17 19:29 Urine For Antigen Detection Legionella Antigen - Final 04/17/17 19:29 Urine For Antigen Detection Streptococcus pneumoniae Antigen (M - Final 04/17/17 12:26 Urine - Urine - Catheterized Urine Culture - Final NO GROWTH OBTAINED 04/17/17 11:24 Blood - Peripheral Venous Blood Culture - Preliminary NO GROWTH OBTAINED AFTER 24 HOURS, INCUBATION TO CONTINUE FOR 4 DAYS. 04/17/17 11:24 Blood - Peripheral Venous Blood Culture - Preliminary NO GROWTH OBTAINED AFTER 24 HOURS, INCUBATION TO CONTINUE FOR 4 DAYS. Laboratory Tests 04/19/17 04/19/17 04/19/17 05:10 05:10 05:10 WBC 12.2 H Hgb 7.5 L Hct 21.4 L Plt Count 37 L BUN Creatinine Creat Clearance w eGFR A. galactomannan Ag Pending Beta-(1,3)-D-Glucan Pending 04/19/17 05:10 WBC Hgb Hct Plt Count BUN 45 H D Creatinine 1.0 Creat Clearance w eGFR > 60 A. galactomannan Ag Beta-(1,3)-D-Glucan Assessment Stage IV lung CA with opacified right chest effusion atalectasis ? Infiltrate Acute myelogenous Leukemia Severe anemia thrombocytopenia post transfusion Acute kidney injury Hemoptysis Plan Continue Zosyn and wait for sputum c/s fungus and routine Fungal markers ordered Joseph LAZARO
--- NOTE | 2017-04-19 07:54 | PN ---
Progress Note, Physician History of Present Illness: No events overnight. Normal BM yesterday. specifically, no melena, hematochezia. Comfortable. AAOx3. Recieved 2 u PRBC - Current Medication List Current Medications: Active Medications Allopurinol (Zyloprim -) 100 mg PO DAILY [facility] Last Admin: 04/18/17 09:25 Dose: 100 mg Chlorhexidine Gluconate (Hibiclens For Decolonization -) 1 applic TP HS [facility] Last Admin: 04/18/17 21:03 Dose: 1 applic Mupirocin (Bactroban Ointment (For Decolonization) -) 1 applic NS BID [facility] Stop: 04/22/17 21:59 Last Admin: 04/18/17 21:02 Dose: 1 applic Nystatin (Nystatin Oral Suspension -) 500,000 units PO Q6HPO [facility] Last Admin: 04/19/17 07:19 Dose: 500,000 units Oxycodone HCl (Roxicodone -) 10 mg PO Q6HPO PRN PRN Reason: PAIN Last Admin: 04/18/17 21:03 Dose: 10 mg Pantoprazole Sodium (Protonix -) 40 mg PO DAILY [facility] Last Admin: 04/18/17 10:37 Dose: 40 mg Piperacillin Sod/Tazobactam Sod (Zosyn 3.375gm Ivpb (Pre-Docked)) 3.375 gm IVPB Q8H-IV [facility] PRN Reason: Protocol Last Admin: 04/19/17 03:00 Dose: 3.375 gm Polyethylene Glycol (Miralax (For Daily Use) -) 17 gm PO DAILY [facility] Last Admin: 04/18/17 15:40 Dose: 17 gm Tamsulosin HCl (Flomax -) 0.4 mg PO DAILY@0830 [facility] Last Admin: 04/18/17 09:25 Dose: 0.4 mg - Objective Vital Signs: Vital Signs Temperature 98.7 F 04/18/17 23:26 Pulse Rate 81 04/19/17 05:00 Respiratory Rate 18 04/19/17 05:00 Blood Pressure 94/41 04/19/17 05:00 O2 Sat by Pulse Oximetry (%) 100 04/18/17 22:00 Constitutional: Yes: No Distress, Calm Eyes: Yes: Conjunctiva Clear Cardiovascular: Yes: Regular Rate and Rhythm Respiratory: Yes: Regular, CTA Bilaterally Gastrointestinal: Yes: Normal Bowel Sounds, Soft. No: Melena, Palpable Mass, Pulsatile Mass, Rectal Bleeding, Tenderness, Tenderness, Epigastrium, Tenderness , Rebound, Vomiting Labs: CBC, BMP 04/19/17 05:10 04/19/17 05:10 INR, PTT INR 1.57 (0.82-1.09) H 04/18/17 06:05 Fibrinogen 259.0 mg/dL (238-498) 04/17/17 20:00 Problem List - Problems (1) GIB (gastrointestinal bleeding) Code(s): K92.2 - GASTROINTESTINAL HEMORRHAGE, UNSPECIFIED (2) Symptomatic anemia Code(s): D64.9 - ANEMIA, UNSPECIFIED (3) AML (acute myeloblastic leukemia) Code(s): C92.00 - ACUTE MYELOBLASTIC LEUKEMIA, NOT HAVING ACHIEVED REMISSION (4) Abnormal CXR (chest x-ray) Code(s): R93.8 - ABNORMAL FINDINGS ON DIAGNOSTIC IMAGING OF BODY STRUCTURES (5) Lung cancer Code(s): C34.90 - MALIGNANT NEOPLASM OF UNSP PART OF UNSP BRONCHUS OR LUNG Qualifiers: Laterality: unspecified laterality (6) Prostate cancer Code(s): C61 - MALIGNANT NEOPLASM OF PROSTATE Impression/Plan Impression/Plan: Continue current management will follow Visit type - Emergency Visit Emergency Visit: No - New Patient This patient is new to me today: No - Critical Care Critical Care patient: No
--- NOTE | 2017-04-19 08:40 | PATH ---
Surgical Pathology Report Patient Name: YIN HOLT Med. Rec. #: [id number] /Age/Gender: 1940 (Age: 77) / M Account: [id number] Location: ICU [employer] Taken: 04/17/2017 Received: 04/18/2017 Reported: 04/19/2017 Physicians: Melanie Garcia M.D. Specimen(s) Received PERIPHERAL BLOOD Clinical History Hx of AML, blasts on peripheral smear. Final Diagnosis PERIPHERAL BLOOD: FLOW CYTOMETRY performed and interpreted at [place], [place] ([id number]) shows the following: INTERPRETATION: ACUTE MYELOID LEUKEMIA (AML), 32% BLASTS Phenotype: A prominent population of myeloblasts detected comprising 32% of analyzed white blood cells. Blasts express CD33, partial HLA-DR, CD117, dim CD13, partial CD11b, CD7, partial CD56, and CD4; and are negative for CD34, myeloperoxidase, cCD3, and cCD22. Maturing myeloid forms appear left-shifted. Lymphocytes include rare B cells that appear polyclonal, NK cells, and immunophenotypically normal CD4+ and CD8+ T cells in normal proportions. Comment: This case was discussed with Dr. Garcia on 04/19/2017. Electronically Signed Tirso Roa M.D. Gross Description Received are two green top tubes. Forwarded for further studies. AF/04/18/2017 final/04/18/2017
--- NOTE | 2017-04-19 09:07 | PN ---
Physical Exam: 24H events: yesterday - s/p 2U x RBCs (6U total) with Hgb 7.5, IVF held + 20 IV Lasix due to RLL effusion, ECHO (EF 69.4%, mild pericardial effusion) O/N - no events AM - 1x dark stool, MELISSA resolving (Cr 1.0, baseline 0.8/0.9) SUBJECTIVE: Patient seen and examined in ICU. Denies fever, chills, n/v. No SOB , but has some R sided reproducible chest pain. OBJECTIVE: Vital Signs Period Temp Pulse Resp BP Sys/Leigh Pulse Ox Last 24 Hr 98.0 F-98.7 F 72-86 18-24 90-99/40-59 98-100 Intake & Output 04/16/17 04/17/17 04/18/17 04/19/17 23:59 23:59 23:59 23:59 Intake Total 1000 1799 110 Output Total 700 3600 Balance 300 -1801 110 Weight 68.039 kg 72.5 kg GENERAL: aao x 3, nad EYES: sclera anicteric, conjunctiva pale ENT: moist mucous membranes LUNGS: R base decreased breath sounds, L basilar crackles HEART: rrr, normal S1 and S2 ABDOMEN: Soft, ntnd LOWER EXTREMITIES: 2+ pulses, wwp, no peripheral edema. CBC, BMP 04/19/17 05:10 04/19/17 05:10 Ca - 7.3 (corrected 10.3) Phos - 2.1 Mg - 2.0 Hepatic Panel Total Bilirubin 0.9 mg/dL (0.2-1.0) 04/19/17 05:10 AST 20 U/L (15-37) D 04/19/17 05:10 ALT 22 U/L (12-78) 04/19/17 05:10 Alkaline Phosphatase 54 U/L (45-117) 04/19/17 05:10 Albumin 2.2 g/dl (3.4-5.0) L 04/19/17 05:10 Microbiology 04/17/17 11:24 Blood - Peripheral Venous Blood Culture - Preliminary NO GROWTH OBTAINED AFTER 48 HOURS, INCUBATION TO CONTINUE FOR 3 DAYS. 04/17/17 11:24 Blood - Peripheral Venous Blood Culture - Preliminary NO GROWTH OBTAINED AFTER 48 HOURS, INCUBATION TO CONTINUE FOR 3 DAYS. 04/18/17 22:45 Sputum - Expectorated AARON Preparation - Preliminary 04/18/17 22:45 Sputum - Expectorated Fungal Culture - Preliminary 04/17/17 12:26 Urine - Urine - Catheterized Urine Culture - Final NO GROWTH OBTAINED 04/17/17 19:29 Urine For Antigen Detection Legionella Antigen - Final 04/17/17 19:29 Urine For Antigen Detection Streptococcus pneumoniae Antigen CXR 04/19/2017: no significant change from yesterday; unchanged R pleural effusion with atelectasis vs infiltrate. Active Medications Allopurinol (Zyloprim -) 100 mg PO DAILY [facility] Last Admin: 04/19/17 10:16 Dose: 100 mg Chlorhexidine Gluconate (Hibiclens For Decolonization -) 1 applic TP HS [facility] Last Admin: 04/18/17 21:03 Dose: 1 applic Sodium Chloride (Normal Saline -) 1,000 mls @ 500 mls/hr IV [facility] Stop: 04/19/17 13:31 Potassium Phosphate 30 mm/ (Sodium Chloride) 260 mls @ 62.5 mls/hr IVPB ONCE ONE Stop: 04/19/17 15:57 Mupirocin (Bactroban Ointment (For Decolonization) -) 1 applic NS BID [facility] Stop: 04/22/17 21:59 Last Admin: 04/19/17 10:15 Dose: 1 applic Nystatin (Nystatin Oral Suspension -) 500,000 units PO Q6HPO [facility] Last Admin: 04/19/17 07:19 Dose: 500,000 units Oxycodone HCl (Roxicodone -) 10 mg PO Q6HPO PRN PRN Reason: PAIN Last Admin: 04/18/17 21:03 Dose: 10 mg Pantoprazole Sodium (Protonix -) 40 mg PO DAILY [facility] Last Admin: 04/19/17 10:15 Dose: 40 mg Piperacillin Sod/Tazobactam Sod (Zosyn 3.375gm Ivpb (Pre-Docked)) 3.375 gm IVPB Q8H-IV [facility] PRN Reason: Protocol Last Admin: 04/19/17 10:15 Dose: 3.375 gm Polyethylene Glycol (Miralax (For Daily Use) -) 17 gm PO DAILY [facility] Last Admin: 04/19/17 10:16 Dose: Not Given Potassium Chloride (Potassium Chloride Oral Liquid) 40 meq PO BID [facility] Tamsulosin HCl (Flomax -) 0.4 mg PO DAILY@0830 [facility] Last Admin: 04/19/17 10:15 Dose: 0.4 mg ASSESSMENT/PLAN: 77yo M with PMH of AML, 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 Etiology of severe anemia and thrombocytopenia likely multifactorial (AML, anemia of chronic disease) s/p 6U PRBCs with stable Hgb. Lactic acidosis likely from demand ischemia is now resolved. MELISSA resolving. #ID -ID consulted -Abx per ID (empiric Zosyn) -f/u sputum AARON (blood NGTD x 48h, UCx and Legionella Ag neg) #Pulm A: Stage 4 NSCLC, CXR RLL pleural effusion 2/2 POD vs PNA -O2 therapy to maintain SpaO2 >90% #Heme A:severe anemia likely multifactorial (AML, anemia of chronic dz) s/p 6U PRBCs; lactic acidosis resolved -Monitor H&H -Transfuse if plts <20K #Oncology -continue oxycodone for pain management #GI -GI consulted -PO PPI #Renal -Monitor creatine -[place], I&Os #FEN -IVF - 1L NS bolus -Repleting K and Phos (40mg KCl BID and KPhos 30mm IV) -Clear #PPX: -DVT - SCDs -GI - on ppi Dispo: transfer to med/surg (7W) d/w Dr. Milan Briceno MD PGY-1 Visit type - Emergency Visit Emergency Visit: No - New Patient This patient is new to me today: Yes Date on this admission: 04/19/17 - Critical Care Critical Care patient: Yes Total Critical Care Time (in minutes): 35 Critical Care Statement: The care of this patient involved high complexity decision making to prevent further life threatening deterioration of the patient 's condition and/or to evaluate & treat vital organ system(s) failure or risk of failure.
[2017-04-19] MEDS: MUPIROCIN 2% TOPICAL OINTMENT FOR DECOLONIZATION NS SCH ×2 (10:15→22:37)
[2017-04-19] MEDS: TAMSULOSIN HCL 0.4 MG CAP.ER.24H (FP) PO SCH (10:15)
[2017-04-19] MEDS: PANTOPRAZOLE 40 MG TABLET (FP) PO SCH (10:15)
[2017-04-19] MEDS: ALLOPURINOL 100 MG TABLET (FP) PO SCH (10:16)
[2017-04-19] MEDS: POLYETHYLENE GLYCOL 3350 119 GM BTL PO SCH (10:16)
[2017-04-19] MEDS ORDERED: SODIUM CHLORIDE 1,000 ML IV STA (11:32)
[2017-04-19] MEDS ORDERED: POTASSIUM PHOSPHATE 30 MM in SODIUM CHLORIDE 250 ML IVPB ONE (12:15)
--- NOTE | 2017-04-19 12:31 | PN ---
Teaching Attending Note Name of Resident: Bhakti Briceno ATTENDING PHYSICIAN STATEMENT I saw and evaluated the patient. I reviewed the resident's note and discussed the case with the resident. I agree with the resident's findings and plan as documented. SUBJECTIVE: Pt seen and examined in the ICU. Has received 6 units PRBC so far. H/H improving. Dark stools this AM. Denies shortness of breath, some right sided reproducible pain. OBJECTIVE: Last Vital Signs Temp Pulse Resp BP Pulse Ox 98.9 F 84 20 96/41 100 04/19/17 10:00 04/19/17 10:00 04/19/17 10:00 04/19/17 10:00 04/18/17 22:00 Intake & Output 04/16/17 04/17/17 04/18/17 04/19/17 23:59 23:59 23:59 23:59 Intake Total 1000 1799 110 Output Total 700 3600 Balance 300 -1801 110 Weight 150 lb 159 lb 13.362 oz 163 lb Gen: NAD at rest Heart: RRR Lung: decreased breath sounds at the bases Abd: soft, nontender Ext: no edema CBC, BMP 04/19/17 05:10 04/19/17 05:10 Active Medications Allopurinol (Zyloprim -) 100 mg PO DAILY [facility] Last Admin: 04/19/17 10:16 Dose: 100 mg Chlorhexidine Gluconate (Hibiclens For Decolonization -) 1 applic TP HS [facility] Last Admin: 04/18/17 21:03 Dose: 1 applic Sodium Chloride (Normal Saline -) 1,000 mls @ 500 mls/hr IV [facility] Stop: 04/19/17 13:31 Potassium Phosphate 30 mm/ (Sodium Chloride) 260 mls @ 62.5 mls/hr IVPB ONCE ONE Stop: 04/19/17 15:57 Mupirocin (Bactroban Ointment (For Decolonization) -) 1 applic NS BID [facility] Stop: 04/22/17 21:59 Last Admin: 04/19/17 10:15 Dose: 1 applic Nystatin (Nystatin Oral Suspension -) 500,000 units PO Q6HPO [facility] Last Admin: 04/19/17 07:19 Dose: 500,000 units Oxycodone HCl (Roxicodone -) 10 mg PO Q6HPO PRN PRN Reason: PAIN Last Admin: 04/18/17 21:03 Dose: 10 mg Pantoprazole Sodium (Protonix -) 40 mg PO DAILY [facility] Last Admin: 04/19/17 10:15 Dose: 40 mg Piperacillin Sod/Tazobactam Sod (Zosyn 3.375gm Ivpb (Pre-Docked)) 3.375 gm IVPB Q8H-IV [facility] PRN Reason: Protocol Last Admin: 04/19/17 10:15 Dose: 3.375 gm Polyethylene Glycol (Miralax (For Daily Use) -) 17 gm PO DAILY [facility] Last Admin: 04/19/17 10:16 Dose: Not Given Potassium Chloride (Potassium Chloride Oral Liquid) 40 meq PO BID [facility] Tamsulosin HCl (Flomax -) 0.4 mg PO DAILY@0830 [facility] Last Admin: 04/19/17 10:15 Dose: 0.4 mg ASSESSMENT AND PLAN: Severe Anemia/Thrombocytopenia Hypovolemia s/p PRBC transfusions Lactic Acidosis from above Acute Kidney Injury Syncope AML Stage 4 NSCLC h/o Prostate Ca - monitor CBC - transfuse PRBC, platelets - IVF - monitor urine output, creatinine - protonix - antibiotics per ID - DVT prophylaxis - ICU monitoring critical care time spent in reviewing chart, evaluating patient and formulating plan 35 min
[2017-04-19 13:23] LABS: MCH 28.8 pg (25.7-33.7); MCHC 34.9 g/dl (32.0-35.9); MEAN CELL VOLUME 82.6 fl (80-96); MEAN PLT VOLUME 7.4 fl (7.5-11.1); RDW 15.4 % (11.9-15.9); WHITE BLOOD COUNT 12.4 K/mm3 (4.0-10.0)
[2017-04-19 13:28] LABS: PLATELET COUNT 30 K/MM3 (134-434)
[2017-04-19] MEDS: POTASSIUM CHLORIDE ORAL LIQUID 20 MEQ/15 ML PO SCH ×2 (13:46→22:41)
[2017-04-19] MEDS: oxyCODONE HCL 5 MG TABLET PO PRN (15:09)
--- NOTE | 2017-04-19 18:09 | PN ---
Teaching Attending Note Name of Resident: Dale Blas ATTENDING PHYSICIAN STATEMENT I saw and evaluated the patient. I reviewed the resident's note and discussed the case with the resident. I agree with the resident's findings and plan as documented. SUBJECTIVE: Patient has no complaints. OBJECTIVE: Vital Signs Period Temp Pulse Resp BP Sys/Leigh Pulse Ox Last 24 Hr 98.7 F-98.9 F 72-86 17-20 90-99/40-74 100 HEART: S1S2, RRR LUNGS: Clear ABDOMEN: Soft, non-tender, non-distended, normal BS EXTREMITIES: No edema Current Medications Generic Name Dose Route Start Last Admin Trade Name Freq PRN Reason Stop Dose Admin Allopurinol 100 mg 04/18/17 10:00 04/19/17 10:16 Zyloprim - PO 100 mg DAILY [facility] Administration Chlorhexidine Gluconate 1 applic 04/17/17 22:00 04/18/17 21:03 Hibiclens For Decolonization - TP 1 applic HS [facility] Administration Mupirocin 1 applic 04/17/17 22:00 04/19/17 10:15 Bactroban Ointment (For Decolonization) - NS 04/22/17 21:59 1 applic BID [facility] Administration Nystatin 500,000 units 04/18/17 12:00 04/19/17 17:25 Nystatin Oral Suspension - PO 500,000 units Q6HPO [facility] Administration Oxycodone HCl 10 mg 04/17/17 21:12 04/19/17 15:09 Roxicodone - PO 10 mg Q6HPO PRN Administration PAIN Pantoprazole Sodium 40 mg 04/18/17 10:00 04/19/17 10:15 Protonix - PO 40 mg DAILY [facility] Administration Piperacillin Sod/Tazobactam Sod 3.375 gm 04/17/17 18:00 04/19/17 17:23 Zosyn 3.375gm Ivpb (Pre-Docked) IVPB 3.375 gm Q8H-IV [facility] Administration Protocol Polyethylene Glycol 17 gm 04/18/17 12:00 04/19/17 10:16 Miralax (For Daily Use) - PO Not Given DAILY [facility] Potassium Chloride 40 meq 04/19/17 12:00 04/19/17 13:46 Potassium Chloride Oral Liquid PO 40 meq BID [facility] Administration Tamsulosin HCl 0.4 mg 04/18/17 08:30 04/19/17 10:15 Flomax - PO 0.4 mg DAILY@0830 [facility] Administration ASSESSMENT AND PLAN: This is a 77-year-old man with a history of AML, lung cancer, prostate cancer who presented to the ER with weakness, SOB. 1. Severe sepsis secondary to healthcare-associated pneumonia - Continue Zosyn - Lactic acid improved 2. Severe anemia - Transfused 6 units PRBCs - Hemoglobin stable - Likely secondary to sepsis, AML - Iron is normal, TIBC low, iron sat high, ferritin high - LD is high, haptoglobin normal - B12 is normal - Iraj negative - Flow cytometry consistent with AML with 32% blasts - Stool positive for occult blood - Continue Protonix 3. Acute hypoxic respiratory failure secondary to pneumonia, anemia - Oxygen to maintain saturation > 90% 4. Thrombocytopenia - Likely secondary to sepsis, AML - Transfused 1 unit platelets 5. Acute kidney injury secondary to sepsis, hypoperfusion - Improved 6. Stage IV squamous cell lung cancer 7. Prostate cancer 8. AML 9. DVT prophylaxis - SCDs - No anticoagulation secondary to anemia, thrombocytopenia 10. Transfer to med-surg
[2017-04-19 22:36] LABS: ANION GAP 7 (8-16); CALCIUM 7.5 mg/dL (8.5-10.1); CO2 23 mmol/L (21-32); GLUCOSE,RANDOM 89 mg/dL (74-106); PHOSPHOROUS 3.6 mg/dL (2.5-4.9)
[2017-04-19] MEDS: CHLORHEXIDINE GLUCONATE 4% CLEANSER FOR DECOLONIZATION TP SCH (22:37)
--- NOTE | 2017-04-19 22:57 | PN ---
Progress Note (short form) - Note Progress Note: Patient seen and examined. events noted. chart reviewed. O/E: General: Thin in NAD. Heent: No LAD Lungs: Anterior auscultation no crackles heard abdomen: soft, NT ND LE: no CCE Last Vital Signs Temp Pulse Resp BP Pulse Ox 98.8 F 88 18 91/46 100 04/19/17 22:00 04/19/17 22:00 04/19/17 22:00 04/19/17 22:00 04/19/17 21:00 Current Medications Generic Name Dose Route Start Last Admin Trade Name Freq PRN Reason Stop Dose Admin Allopurinol 100 mg 04/18/17 10:00 04/19/17 10:16 Zyloprim - PO 100 mg DAILY [facility] Administration Chlorhexidine Gluconate 1 applic 04/17/17 22:00 04/19/17 22:37 Hibiclens For Decolonization - TP 1 applic HS [facility] Administration Mupirocin 1 applic 04/17/17 22:00 04/19/17 22:37 Bactroban Ointment (For Decolonization) - NS 04/22/17 21:59 1 applic BID [facility] Administration Nystatin 500,000 units 04/18/17 12:00 04/19/17 17:25 Nystatin Oral Suspension - PO 500,000 units Q6HPO [facility] Administration Oxycodone HCl 10 mg 04/17/17 21:12 04/19/17 15:09 Roxicodone - PO 10 mg Q6HPO PRN Administration PAIN Pantoprazole Sodium 40 mg 04/18/17 10:00 04/19/17 10:15 Protonix - PO 40 mg DAILY [facility] Administration Piperacillin Sod/Tazobactam Sod 3.375 gm 04/17/17 18:00 04/19/17 17:23 Zosyn 3.375gm Ivpb (Pre-Docked) IVPB 3.375 gm Q8H-IV [facility] Administration Protocol Polyethylene Glycol 17 gm 04/18/17 12:00 04/19/17 10:16 Miralax (For Daily Use) - PO Not Given DAILY [facility] Potassium Chloride 40 meq 04/19/17 12:00 04/19/17 22:41 Potassium Chloride Oral Liquid PO 40 meq BID [facility] Administration Tamsulosin HCl 0.4 mg 04/18/17 08:30 04/19/17 10:15 Flomax - PO 0.4 mg DAILY@0830 [facility] Administration CBC, BMP 04/19/17 12:55 04/19/17 21:20 Assessment/Plan: Stage IV Squamous cell lung Ca ( presently on Nivolumab , last dose, early Mar) AML ( diagnosed in 09/2016 ,s/p "7+3" chemo ,no further Rx, pt declined) -supportive care, PRBC and platelets, as needed -flow consistent with AML, pt declined rx -c/w allopurinol. -ID w/u and abx per ID -Protonix -communicated with RN
[2017-04-20] MEDS ORDERED: PIPERACILLIN/TAZOB 3.375 GM/50 ML PRE-DOCKED IVPB SCH (02:00)
[2017-04-20] MEDS: PIPERACILLIN/TAZOB 3.375 GM 3.375 GM in DEXTROSE 5%-WATER - 50 ML IVPB SCH ×3 (03:00→17:24)
[2017-04-20] MEDS ORDERED: DEXTROSE 5%-WATER - 50 ML IVPB ONE ×3 (03:28→17:15)
[2017-04-20] MEDS ORDERED: PIPERACILLIN/TAZOBACTAM 3.375 GM VIAL IVPB ONE ×3 (03:28→17:15)
[2017-04-20] MEDS: NYSTATIN 500,000 UNITS/5 ML SUSPENSION PO SCH ×4 (06:16→23:26)
[2017-04-20 07:07] LABS: MCH 29.2 pg (25.7-33.7); MCHC 35.2 g/dl (32.0-35.9); MEAN PLT VOLUME 7.4 fl (7.5-11.1); RDW 15.8 % (11.9-15.9); WHITE BLOOD COUNT 9.8 K/mm3 (4.0-10.0)
[2017-04-20 07:22] LABS: PLATELET COUNT 24 K/MM3 (134-434)
[2017-04-20 07:25] LABS: INR 1.52 (0.82-1.09); PROTHROMBIN TIME (PATIENT) 16.9 SEC (9.98-11.88)
[2017-04-20 07:27] LABS: ACTIVATED PTT 31.2 SECONDS (26.9-34.4)
--- NOTE | 2017-04-20 07:28 | PN ---
Progress Note, Physician History of Present Illness: Transferred from ICU to reg. floor overnight. No events. - Current Medication List Current Medications: Active Medications Allopurinol (Zyloprim -) 100 mg PO DAILY [facility] Piperacillin Sod/Tazobactam (Sod 3.375 gm/ Dextrose) 50 mls @ 100 mls/hr IVPB Q8H-IV [facility] Last Admin: 04/20/17 03:00 Dose: 100 mls/hr Nystatin (Nystatin Oral Suspension -) 500,000 units PO Q6HPO [facility] Last Admin: 04/20/17 06:16 Dose: 500,000 units Oxycodone HCl (Roxicodone -) 10 mg PO Q6HPO PRN PRN Reason: PAIN Pantoprazole Sodium (Protonix -) 40 mg PO DAILY [facility] Polyethylene Glycol (Miralax (For Daily Use) -) 17 gm PO DAILY [facility] Potassium Chloride (Potassium Chloride Oral Liquid) 40 meq PO BID [facility] Tamsulosin HCl (Flomax -) 0.4 mg PO DAILY@0830 [facility] - Objective Vital Signs: Vital Signs Temperature 98.7 F 04/20/17 05:59 Pulse Rate 87 04/20/17 05:59 Respiratory Rate 18 04/20/17 05:59 Blood Pressure 94/47 04/20/17 05:59 O2 Sat by Pulse Oximetry (%) 100 04/20/17 00:00 Constitutional: Yes: No Distress, Calm Eyes: Yes: Conjunctiva Clear Cardiovascular: Yes: Regular Rate and Rhythm Respiratory: Yes: Regular Gastrointestinal: Yes: Normal Bowel Sounds, Soft. No: Ascites, Distention, Hematemesis, Melena, Palpable Mass, Pulsatile Mass, Rectal Bleeding, Tenderness , Tenderness, Epigastrium, Tenderness, Rebound, Vomiting Neurological: Yes: Alert, Oriented Labs: CBC, BMP 04/20/17 06:58 INR, PTT INR 1.57 (0.82-1.09) H 04/18/17 06:05 Fibrinogen 259.0 mg/dL (238-498) 04/17/17 20:00 Abnormal Lab Results 04/18/17 04/19/17 04/19/17 06:05 05:10 12:55 WBC 12.4 H RBC 2.05 L 2.73 L Hgb 7.9 L Hct 22.5 L Plt Count 30 L* MPV 7.4 L Potassium 3.3 L Chloride 108 H Anion Gap BUN 45 H D Calcium 7.3 L Phosphorus 2.1 L D Total Protein 4.5 L Albumin 2.2 L 04/19/17 04/20/17 21:20 06:58 WBC RBC 2.52 L Hgb 7.4 L Hct 20.9 L Plt Count 24 L* MPV 7.4 L Potassium Chloride 110 H Anion Gap 7 L BUN 28 H D Calcium 7.5 L Phosphorus Total Protein Albumin Active Orders - 24 Hr 04/19/17 12:10 SPUTUM CULTURE Stat 04/20/17 00:02 Oxycodone HCl [Roxicodone -] 10 mg PO Q6HPO PRN 04/20/17 02:00 Piperacillin/Tazob 3.375 gm [Zosyn -] 3.375 gm Dextrose 5%-Water - [D5w 50 ml Mini Bag] 50 ml IVPB Q8H-IV 04/20/17 06:00 Nystatin Oral Suspension - 500,000 units PO Q6HPO 04/20/17 06:15 COMP METABOLIC PANEL Routine LDH Routine MAGNESIUM Routine PHOSPHOROUS Routine URIC ACID Routine 04/20/17 06:58 ACTIVATED PTT Routine PT/INR (PROTHROMBIN TIME) Routine 04/20/17 08:30 Tamsulosin HCl [Flomax -] 0.4 mg PO DAILY@0830 04/20/17 10:00 Allopurinol [Zyloprim -] 100 mg PO DAILY Pantoprazole Sodium [Protonix -] 40 mg PO DAILY Polyethylene Glycol 3350 [Miralax (For Daily Use) -] 17 gm PO DAILY Potassium Chloride [Potassium Chloride Oral Liquid] 40 meq PO BID Problem List - Problems (1) GIB (gastrointestinal bleeding) Code(s): K92.2 - GASTROINTESTINAL HEMORRHAGE, UNSPECIFIED (2) Symptomatic anemia Code(s): D64.9 - ANEMIA, UNSPECIFIED (3) AML (acute myeloblastic leukemia) Code(s): C92.00 - ACUTE MYELOBLASTIC LEUKEMIA, NOT HAVING ACHIEVED REMISSION (4) Abnormal CXR (chest x-ray) Code(s): R93.8 - ABNORMAL FINDINGS ON DIAGNOSTIC IMAGING OF BODY STRUCTURES (5) Lung cancer Code(s): C34.90 - MALIGNANT NEOPLASM OF UNSP PART OF UNSP BRONCHUS OR LUNG Qualifiers: Laterality: unspecified laterality (6) Prostate cancer Code(s): C61 - MALIGNANT NEOPLASM OF PROSTATE Impression/Plan Impression/Plan: Comfortable. No events. Continue current care will monitor Visit type - Emergency Visit Emergency Visit: No - New Patient This patient is new to me today: No - Critical Care Critical Care patient: No
[2017-04-20 07:45] LABS: ALBUMIN 2.3 g/dl (3.4-5.0); ANION GAP 6 (8-16); CALCIUM 7.5 mg/dL (8.5-10.1); CO2 25 mmol/L (21-32); GLUCOSE,RANDOM 95 mg/dL (74-106); MAGNESIUM 1.8 mg/dL (1.8-2.4); URIC ACID 5.4 mg/dL (2.6-7.2)
[2017-04-20 07:49] LABS: ALK PHOS 58 U/L (45-117); BILIRUBIN,TOTAL 0.5 mg/dL (0.2-1.0); CREATININE 0.8 mg/dL (0.7-1.3); LDH 613 U/L (87-241); PHOSPHOROUS 2.4 mg/dL (2.5-4.9); SGOT/AST 19 U/L (15-37); SGPT/ALT 20 U/L (12-78); TOT PROT 4.6 g/dl (6.4-8.2)
[2017-04-20 08:12] LABS: BLAST 9 % (0-0); TOTAL CELLS COUNTED 100
[2017-04-20] MEDS: POLYETHYLENE GLYCOL 3350 119 GM BTL PO SCH (09:38)
[2017-04-20] MEDS: PANTOPRAZOLE 40 MG TABLET (FP) PO SCH (09:38)
[2017-04-20] MEDS: TAMSULOSIN HCL 0.4 MG CAP.ER.24H (FP) PO SCH (09:38)
[2017-04-20] MEDS: ALLOPURINOL 100 MG TABLET (FP) PO SCH (09:39)
[2017-04-20] MEDS ORDERED: MUPIROCIN 2% TOPICAL OINTMENT FOR DECOLONIZATION NS SCH (10:00)
[2017-04-20] MEDS ORDERED: POTASSIUM CHLORIDE ORAL LIQUID 20 MEQ/15 ML PO SCH (10:00)
--- NOTE | 2017-04-20 10:31 | PN ---
Progress Note (short form) - Note Progress Note: Patient seen and examined. events noted. chart reviewed. Out of the ICU to the floor. O/E: General: Thin in NAD. Heent: No LAD Lungs: Anterior auscultation no crackles heard abdomen: soft, NT ND LE: no CCE Last Vital Signs Temp Pulse Resp BP Pulse Ox 99.2 F 86 18 96/44 100 04/20/17 09:00 04/20/17 09:00 04/20/17 09:00 04/20/17 09:00 04/20/17 00:00 CBC, BMP 04/20/17 06:58 04/20/17 06:15 Current Medications Generic Name Dose Route Start Last Admin Trade Name Freq PRN Reason Stop Dose Admin Allopurinol 100 mg 04/20/17 10:00 04/20/17 09:39 Zyloprim - PO 100 mg DAILY DENISSE Administration Piperacillin Sod/Tazobactam 50 mls @ 100 mls/hr 04/20/17 02:00 04/20/17 09:38 Sod 3.375 gm/ Dextrose IVPB 100 mls/hr Q8H-IV DENISSE Administration Nystatin 500,000 units 04/20/17 06:00 04/20/17 06:16 Nystatin Oral Suspension - PO 500,000 units Q6HPO DENISSE Administration Oxycodone HCl 10 mg 04/20/17 00:02 Roxicodone - PO Q6HPO PRN PAIN Pantoprazole Sodium 40 mg 04/20/17 10:00 04/20/17 09:38 Protonix - PO 40 mg DAILY DENISSE Administration Polyethylene Glycol 17 gm 04/20/17 10:00 04/20/17 09:38 Miralax (For Daily Use) - PO 17 grams DAILY DENISSE Administration Potassium Phos/Sodium Phos 1 packet 04/20/17 14:00 Phos-Nak Packet - PO TID DENISSE Tamsulosin HCl 0.4 mg 04/20/17 08:30 04/20/17 09:38 Flomax - PO 0.4 mg DAILY@0830 DENISSE Administration Assessment/Plan: Stage IV Squamous cell lung Ca ( presently on Nivolumab , last dose, early Mar) AML ( diagnosed in 09/2016 ,s/p "7+3" chemo ,no further Rx, pt declined) PNA On IV abx -White count on presentation high ,likely a reflection of infectious process too -supportive care, PRBC and platelets, as needed -flow consistent with AML, pt declined rx -c/w allopurinol. -ID w/u and abx per ID -Protonix -consider to advance his diet -re: disposition: He has stage IV lung and AML, both not curable, and also his performance status declined. Spoke to ( pts oncologist), best supportive care measures is not unreasonable with the pt. spoke to pts sister, reportedly the proxy and she understands that focus should be on the quality of life. has spoken to him multiple times about this in the past with the pt, but pt couldn't decide. Will need to speak to the pt and he sister here. -communicated with RN
[2017-04-20] MEDS: NAPH,MB-DB/K PH,MBDB POWDER PACKET PO SCH ×2 (13:39→21:35)
--- NOTE | 2017-04-20 13:50 | PN ---
Progress Note (short form) - Note Progress Note: comfortable no sob no complaints Vital Signs Period Temp Pulse Resp BP Sys/Leigh Pulse Ox Last 24 Hr 98 F-99.2 F 80-92 18-22 91-96/40-52 97-100 cor-rrr lungs decreased bs at bases abd soft,nt ext no edema +kerr CBC, BMP 04/20/17 06:58 04/20/17 06:15 Microbiology 04/19/17 12:10 Sputum - Expectorated Sputum Culture - Preliminary Yeast Like Organism 04/17/17 11:24 Blood - Peripheral Venous Blood Culture - Preliminary NO GROWTH OBTAINED AFTER 72 HOURS, INCUBATION TO CONTINUE FOR 2 DAYS. 04/17/17 11:24 Blood - Peripheral Venous Blood Culture - Preliminary NO GROWTH OBTAINED AFTER 72 HOURS, INCUBATION TO CONTINUE FOR 2 DAYS. 04/18/17 22:45 Sputum - Expectorated AARON Preparation - Preliminary 04/18/17 22:45 Sputum - Expectorated Fungal Culture - Preliminary 04/17/17 12:26 Urine - Urine - Catheterized Urine Culture - Final NO GROWTH OBTAINED 04/17/17 19:29 Urine For Antigen Detection Legionella Antigen - Final 04/17/17 19:29 Urine For Antigen Detection Streptococcus pneumoniae Antigen (M - Final Current Medications Allopurinol (Zyloprim -) 100 mg PO DAILY [facility] Last Admin: 04/20/17 09:39 Dose: 100 mg Piperacillin Sod/Tazobactam (Sod 3.375 gm/ Dextrose) 50 mls @ 100 mls/hr IVPB Q8H-IV DENISSE Last Admin: 04/20/17 09:38 Dose: 100 mls/hr Nystatin (Nystatin Oral Suspension -) 500,000 units PO Q6HPO DENISSE Last Admin: 04/20/17 12:00 Dose: 500,000 units Oxycodone HCl (Roxicodone -) 10 mg PO Q6HPO PRN PRN Reason: PAIN Pantoprazole Sodium (Protonix -) 40 mg PO DAILY [facility] Last Admin: 04/20/17 09:38 Dose: 40 mg Polyethylene Glycol (Miralax (For Daily Use) -) 17 gm PO DAILY [facility] Last Admin: 04/20/17 09:38 Dose: 17 grams Potassium Phos/Sodium Phos (Phos-Nak Packet -) 1 packet PO TID [facility] Last Admin: 04/20/17 13:39 Dose: 1 packet Tamsulosin HCl (Flomax -) 0.4 mg PO DAILY@0830 [facility] Last Admin: 04/20/17 09:38 Dose: 0.4 mg a/p pneumonia -continue zosyn day #3 leukocytosis may well be partly reactive to anemia as well as due to his AML ( he has blasts) can kerr be removed? history of prostate cancer, lung cancer , AML
--- NOTE | 2017-04-20 17:04 | PN ---
Teaching Attending Note Name of Resident: Dale Blas ATTENDING PHYSICIAN STATEMENT I saw and evaluated the patient. I reviewed the resident's note and discussed the case with the resident. I agree with the resident's findings and plan as documented. SUBJECTIVE: Patient has no complaints. OBJECTIVE: Vital Signs Period Temp Pulse Resp BP Sys/Leigh Pulse Ox Last 24 Hr 98 F-99.2 F 83-92 18-22 91-96/44-52 97-100 HEART: S1S2, RRR LUNGS: Clear ABDOMEN: Soft, non-tender, non-distended, normal BS EXTREMITIES: No edema Current Medications Generic Name Dose Route Start Last Admin Trade Name Freq PRN Reason Stop Dose Admin Allopurinol 100 mg 04/20/17 10:00 04/20/17 09:39 Zyloprim - PO 100 mg DAILY DENISSE Administration Piperacillin Sod/Tazobactam 50 mls @ 100 mls/hr 04/20/17 02:00 04/20/17 09:38 Sod 3.375 gm/ Dextrose IVPB 100 mls/hr Q8H-IV DENISSE Administration Nystatin 500,000 units 04/20/17 06:00 04/20/17 12:00 Nystatin Oral Suspension - PO 500,000 units Q6HPO DENISSE Administration Oxycodone HCl 10 mg 04/20/17 00:02 Roxicodone - PO Q6HPO PRN PAIN Pantoprazole Sodium 40 mg 04/20/17 10:00 04/20/17 09:38 Protonix - PO 40 mg DAILY DENISSE Administration Polyethylene Glycol 17 gm 04/20/17 10:00 04/20/17 09:38 Miralax (For Daily Use) - PO 17 grams DAILY DENISSE Administration Potassium Phos/Sodium Phos 1 packet 04/20/17 14:00 04/20/17 13:39 Phos-Nak Packet - PO 1 packet TID DENISSE Administration Tamsulosin HCl 0.4 mg 04/20/17 08:30 04/20/17 09:38 Flomax - PO 0.4 mg DAILY@0830 DENISSE Administration ASSESSMENT AND PLAN: This is a 77-year-old man with a history of AML, lung cancer, prostate cancer who presented to the ER with weakness, SOB. 1. Severe sepsis secondary to healthcare-associated pneumonia, possibly gram negative - Improved - Continue Zosyn - Lactic acid improved 2. Severe anemia - Transfused 6 units PRBCs - Hemoglobin stable - Likely secondary to sepsis, AML - Iron is normal, TIBC low, iron sat high, ferritin high - LD is high, haptoglobin normal - B12 is normal - Iraj negative - Flow cytometry consistent with AML with 32% blasts - Stool positive for occult blood - Continue Protonix 3. Acute hypoxic respiratory failure secondary to pneumonia, anemia - Improved - Oxygen to maintain saturation > 90% 4. Thrombocytopenia - Likely secondary to sepsis, AML - Transfused 1 unit platelets 5. Acute kidney injury secondary to sepsis, hypoperfusion - Improved 6. Stage IV squamous cell lung cancer 7. Prostate cancer 8. AML 9. DVT prophylaxis - SCDs - No anticoagulation secondary to anemia, thrombocytopenia 10. Remove Bartlett 11. Physical therapy
--- NOTE | 2017-04-20 17:51 | PN ---
Physical Exam: SUBJECTIVE: Patient seen and examined at bedside. Patient status and morale improved. No new complaints. on room air. OBJECTIVE: Vital Signs Period Temp Pulse Resp BP Sys/Leigh Pulse Ox Last 24 Hr 98 F-99.2 F 83-92 18-22 91-96/44-52 97-100 GENERAL: The patient is awake, alert, and fully oriented, in no acute distress. HEAD: Normal with no signs of trauma. EYES: extraocular movements intact, sclera anicteric, conjunctiva clear. No ptosis. NECK: Trachea midline, full range of motion, supple. LUNGS: Breath sounds equal, clear to auscultation bilaterally, no wheezes, no crackles, no accessory muscle use. HEART: Regular rate and rhythm, S1, S2 without murmur, rub or gallop. ABDOMEN: Soft, nontender, nondistended, normoactive bowel sounds, no guarding, no rebound, no hepatosplenomegaly, no masses. EXTREMITIES: 2+ pulses, warm, well-perfused, no edema. NEUROLOGICAL: Cranial nerves II through X grossly intact. Normal speech, gait not observed. PSYCH: Normal mood, normal affect. SKIN: Warm, dry, normal turgor, no rashes or lesions noted Laboratory Results - last 24 hr 04/18/17 04/19/17 04/20/17 06:05 21:20 06:15 WBC RBC 2.05 L Hgb Hct MCV MCH MCHC RDW Plt Count MPV Total Counted Neutrophils % Neutrophils % (Manual) Lymphocytes % Lymphocytes % (Manual) Monocytes % (Manual) Blast Cells % (Manual) G6PD RBC Count 316 PT with INR INR PTT (Actin FS) Sodium 140 142 Potassium 4.1 D 4.2 Chloride 110 H 111 H Carbon Dioxide 23 25 Anion Gap 7 L 6 L BUN 28 H D 21 H D Creatinine 1.0 0.8 Creat Clearance w eGFR > 60 Random Glucose 89 95 Uric Acid 5.4 D Calcium 7.5 L 7.5 L Phosphorus 3.6 D 2.4 L D Magnesium 1.8 Total Bilirubin 0.5 D AST 19 ALT 20 Alkaline Phosphatase 58 LD Total 613 H Total Protein 4.6 L Albumin 2.3 L 04/20/17 04/20/17 06:58 06:58 WBC 9.8 RBC 2.52 L Hgb 7.4 L Hct 20.9 L MCV 83.0 MCH 29.2 MCHC 35.2 RDW 15.8 Plt Count 24 L* MPV 7.4 L Total Counted 100 Neutrophils % No Result Required. Neutrophils % (Manual) 80 Lymphocytes % No Result Required. Lymphocytes % (Manual) 6 L Monocytes % (Manual) 5 D Blast Cells % (Manual) 9 H G6PD RBC Count PT with INR 16.90 H INR 1.52 H PTT (Actin FS) 31.2 Sodium Potassium Chloride Carbon Dioxide Anion Gap BUN Creatinine Creat Clearance w eGFR Random Glucose Uric Acid Calcium Phosphorus Magnesium Total Bilirubin AST ALT Alkaline Phosphatase LD Total Total Protein Albumin Active Medications Generic Name Dose Route Start Last Admin Trade Name Freq PRN Reason Stop Dose Admin Allopurinol 100 mg 04/20/17 10:00 04/20/17 09:39 Zyloprim - PO 100 mg DAILY DENISSE Administration Piperacillin Sod/Tazobactam 50 mls @ 100 mls/hr 04/20/17 02:00 04/20/17 17:24 Sod 3.375 gm/ Dextrose IVPB 100 mls/hr Q8H-IV DENISSE Administration Nystatin 500,000 units 04/20/17 06:00 04/20/17 17:25 Nystatin Oral Suspension - PO 500,000 units Q6HPO DENISSE Administration Oxycodone HCl 10 mg 04/20/17 00:02 Roxicodone - PO Q6HPO PRN PAIN Pantoprazole Sodium 40 mg 04/20/17 10:00 04/20/17 09:38 Protonix - PO 40 mg DAILY DENISSE Administration Polyethylene Glycol 17 gm 04/20/17 10:00 04/20/17 09:38 Miralax (For Daily Use) - PO 17 grams DAILY DENISSE Administration Potassium Phos/Sodium Phos 1 packet 04/20/17 14:00 04/20/17 13:39 Phos-Nak Packet - PO 1 packet TID DENISSE Administration Tamsulosin HCl 0.4 mg 04/20/17 08:30 04/20/17 09:38 Flomax - PO 0.4 mg DAILY@0830 DENISSE Administration ASSESSMENT/PLAN: This is a 77 yo M w/ PMH of multiple malignacies who was BIBEMS c/o increased SOB, cough, decreased PO intake and lethargy for 1 week. He is admitted to the ICU for acute hypoxemic respiratory failure 2/2 severe symptomatic anemia and MELISSA. #Severe symptomatic anemia -last Hb 7.4 -s/p total 6u PRBC, 1u Plt this admission -serum FE 114, TIBC 124, Ferritin 9270, reticulocytes 1.1, Vit b12 386 -Haptoglobin 180, LDH 629 -hematology consult -advance diet #Severe Sepsis likely 2/2 RLL PNA -CXR showing RLL consolidation/atalectasis -ucx, bcx negative to date -ID consult, will follow reccs -s/p vancomycin, zosyn in ED -on empiric zosyn #Acute hypoxemic respiratory failure likely 2/2 severe symptomatic anemia vs PNA -saturating well on room air -supplemental O2 to maintain saturation >90% #leukocytosis likley 2/2 PNA vs malignancy -22.6 in ED -ID consult -s/p vancomycin, zosyn in ED -improving; 9.8 today #MELISSA likely 2/2 anemia vs severe sepsis vs post renal causes- resolved -BUN 83, Cr 1.8 on admission -patient back at baseline creatinine .8 -d/c IVF -d/c kerr #thrombocytopenia likely 2/2 malignancy -hematology consult -plt now 24 -will transfuse platelets as per protocol #lactic acidosis likley 2/2 severe sepsis vs anemia- resolved #FEN -no indication for fluids -monitor lytes -soft diet #Prophy -SCDs; anticoagulation c/i in setting of possible bleed and anemia -Protonix 40mg PO BID #dispo -admit to med surg; dc planning Problem List - Problems (1) MELISSA (acute kidney injury) Code(s): N17.9 - ACUTE KIDNEY FAILURE, UNSPECIFIED (2) AML (acute myeloblastic leukemia) Code(s): C92.00 - ACUTE MYELOBLASTIC LEUKEMIA, NOT HAVING ACHIEVED REMISSION (3) Lactic acidosis Code(s): E87.2 - ACIDOSIS (4) Symptomatic anemia Code(s): D64.9 - ANEMIA, UNSPECIFIED (5) Syncope Code(s): R55 - SYNCOPE AND COLLAPSE (6) Lung cancer Code(s): C34.90 - MALIGNANT NEOPLASM OF UNSP PART OF UNSP BRONCHUS OR LUNG Qualifiers: Laterality: unspecified laterality (7) Prostate cancer Code(s): C61 - MALIGNANT NEOPLASM OF PROSTATE Visit type - Emergency Visit Emergency Visit: Yes ED Registration Date: 04/17/17 Care time: The patient presented to the Emergency Department on the above date and was hospitalized for further evaluation of their emergent condition. - New Patient This patient is new to me today: No - Critical Care Critical Care patient: No
[2017-04-20] MEDS ORDERED: CHLORHEXIDINE GLUCONATE 4% CLEANSER FOR DECOLONIZATION TP SCH (22:00)
[2017-04-21] MEDS ORDERED: PIPERACILLIN/TAZOBACTAM 3.375 GM VIAL IVPB ONE (01:12)
[2017-04-21] MEDS ORDERED: DEXTROSE 5%-WATER - 50 ML IVPB ONE (01:13)
[2017-04-21] MEDS: oxyCODONE HCL 5 MG TABLET PO PRN ×2 (01:19→22:52)
[2017-04-21] MEDS: PIPERACILLIN/TAZOB 3.375 GM 3.375 GM in DEXTROSE 5%-WATER - 50 ML IVPB SCH (01:20)
[2017-04-21] MEDS: NAPH,MB-DB/K PH,MBDB POWDER PACKET PO SCH ×3 (06:26→21:23)
[2017-04-21] MEDS: NYSTATIN 500,000 UNITS/5 ML SUSPENSION PO SCH ×4 (06:26→23:38)
[2017-04-21 07:11] LABS: MCH 28.8 pg (25.7-33.7); MEAN CELL VOLUME 84.8 fl (80-96); MEAN PLT VOLUME 7.7 fl (7.5-11.1); WHITE BLOOD COUNT 11.5 K/mm3 (4.0-10.0)
[2017-04-21 07:41] LABS: ALBUMIN 2.4 g/dl (3.4-5.0); ANION GAP 9 (8-16); CALCIUM 7.7 mg/dL (8.5-10.1); CO2 24 mmol/L (21-32); GLUCOSE,RANDOM 90 mg/dL (74-106); MAGNESIUM 1.8 mg/dL (1.8-2.4); SGOT/AST 17 U/L (15-37); SGPT/ALT 19 U/L (12-78); URIC ACID 4.6 mg/dL (2.6-7.2)
[2017-04-21 07:42] LABS: ALK PHOS 71 U/L (45-117); BILIRUBIN,TOTAL 0.5 mg/dL (0.2-1.0); CREATININE 0.7 mg/dL (0.7-1.3); TOT PROT 5.1 g/dl (6.4-8.2)
[2017-04-21 07:51] LABS: PLATELET COUNT 22 K/MM3 (134-434)
--- NOTE | 2017-04-21 07:55 | PN ---
Progress Note, Physician Chief Complaint: ID Continues on Zosyn Afebrile ( Never febrile) - Current Medication List Current Medications: Active Medications Allopurinol (Zyloprim -) 100 mg PO DAILY [facility] Last Admin: 04/20/17 09:39 Dose: 100 mg Piperacillin Sod/Tazobactam (Sod 3.375 gm/ Dextrose) 50 mls @ 100 mls/hr IVPB Q8H-IV [facility] Last Admin: 04/21/17 01:20 Dose: 100 mls/hr Nystatin (Nystatin Oral Suspension -) 500,000 units PO Q6HPO DENISSE Last Admin: 04/21/17 06:26 Dose: 500,000 units Oxycodone HCl (Roxicodone -) 10 mg PO Q6HPO PRN PRN Reason: PAIN Last Admin: 04/21/17 01:19 Dose: 10 mg Pantoprazole Sodium (Protonix -) 40 mg PO DAILY [facility] Last Admin: 04/20/17 09:38 Dose: 40 mg Polyethylene Glycol (Miralax (For Daily Use) -) 17 gm PO DAILY [facility] Last Admin: 04/20/17 09:38 Dose: 17 grams Potassium Phos/Sodium Phos (Phos-Nak Packet -) 1 packet PO TID [facility] Last Admin: 04/21/17 06:26 Dose: 1 packet Tamsulosin HCl (Flomax -) 0.4 mg PO DAILY@0830 [facility] Last Admin: 04/20/17 09:38 Dose: 0.4 mg - Objective Vital Signs: Vital Signs Temperature 98.1 F 04/21/17 06:00 Pulse Rate 96 H 04/21/17 06:00 Respiratory Rate 18 04/21/17 06:00 Blood Pressure 110/64 04/21/17 06:00 O2 Sat by Pulse Oximetry (%) 95 04/20/17 21:00 Constitutional: Yes: No Distress Neck: Yes: WNL, Supple Cardiovascular: Yes: S1, S2 Respiratory: Yes: WNL, Regular, CTA Bilaterally, Diminished Gastrointestinal: Yes: WNL, Normal Bowel Sounds, Soft. No: Tenderness, Epigastrium Edema: No Labs: CBC, BMP 04/21/17 06:00 INR, PTT INR 1.52 (0.82-1.09) H 04/20/17 06:58 Fibrinogen 259.0 mg/dL (238-498) 04/17/17 20:00 Assessment/Plan Microbiology 04/17/17 19:29 Urine For Antigen Detection Legionella Antigen - Final 04/17/17 19:29 Urine For Antigen Detection Streptococcus pneumoniae Antigen (M - Final 04/17/17 12:26 Urine - Urine - Catheterized Urine Culture - Final NO GROWTH OBTAINED 04/19/17 12:10 Sputum - Expectorated Sputum Culture - Preliminary Yeast Like Organism 04/18/17 22:45 Sputum - Expectorated AARON Preparation - Preliminary 04/18/17 22:45 Sputum - Expectorated Fungal Culture - Preliminary 04/17/17 11:24 Blood - Peripheral Venous Blood Culture - Preliminary NO GROWTH OBTAINED AFTER 72 HOURS, INCUBATION TO CONTINUE FOR 2 DAYS. 04/17/17 11:24 Blood - Peripheral Venous Blood Culture - Preliminary NO GROWTH OBTAINED AFTER 72 HOURS, INCUBATION TO CONTINUE FOR 2 DAYS. Laboratory Tests 04/19/17 04/19/17 04/21/17 05:10 05:10 06:00 WBC 11.5 H Hgb 8.0 L Plt Count 22 L* BUN Creatinine Creat Clearance w eGFR A. galactomannan Ag Pending Beta-(1,3)-D-Glucan Pending 04/21/17 06:00 WBC Hgb Plt Count BUN 14 D Creatinine 0.7 Creat Clearance w eGFR > 60 A. galactomannan Ag Beta-(1,3)-D-Glucan Assessment Unclear if any pneumonia or sepsis ever present here cultures neg/ Stage 4 Lung CA / AML/ Severe anemia low platelets Plan Will stop IV Zosyn and offer quinolone orally for few more days Joseph LAZARO
[2017-04-21] MEDS: TAMSULOSIN HCL 0.4 MG CAP.ER.24H (FP) PO SCH (08:24)
[2017-04-21 09:58] LABS: PHOSPHOROUS 2.9 mg/dL (2.5-4.9)
[2017-04-21] MEDS: PANTOPRAZOLE 40 MG TABLET (FP) PO SCH (10:24)
[2017-04-21] MEDS: LEVOFLOXACIN 500 MG TABLET (FP) PO SCH (10:25)
[2017-04-21] MEDS: ALLOPURINOL 100 MG TABLET (FP) PO SCH (10:25)
[2017-04-21] MEDS: POLYETHYLENE GLYCOL 3350 119 GM BTL PO SCH (10:26)
--- NOTE | 2017-04-21 10:45 | PN ---
Teaching Attending Note Name of Resident: Nabil Daniel ATTENDING PHYSICIAN STATEMENT I saw and evaluated the patient. I reviewed the resident's note and discussed the case with the resident. I agree with the resident's findings and plan as documented. SUBJECTIVE: No complaints. OBJECTIVE: Vital Signs Period Temp Pulse Resp BP Sys/Leigh Pulse Ox Last 24 Hr 97.6 F-98.7 F 82-96 18-20 94-110/46-64 95 HEART: S1S2, RRR LUNGS: Clear ABDOMEN: Soft, non-tender, non-distended, normal BS EXTREMITIES: No edema Current Medications Generic Name Dose Route Start Last Admin Trade Name Freq PRN Reason Stop Dose Admin Allopurinol 100 mg 04/20/17 10:00 04/21/17 10:25 Zyloprim - PO 100 mg DAILY DENISSE Administration Levofloxacin 500 mg 04/21/17 08:00 04/21/17 10:25 Levaquin - PO 500 mg DAILY@0600 DENISSE Administration Nystatin 500,000 units 04/20/17 06:00 04/21/17 06:26 Nystatin Oral Suspension - PO 500,000 units Q6HPO DENISSE Administration Oxycodone HCl 10 mg 04/20/17 00:02 04/21/17 01:19 Roxicodone - PO 10 mg Q6HPO PRN Administration PAIN Pantoprazole Sodium 40 mg 04/20/17 10:00 04/21/17 10:24 Protonix - PO 40 mg DAILY DENISSE Administration Polyethylene Glycol 17 gm 04/20/17 10:00 04/21/17 10:26 Miralax (For Daily Use) - PO 17 grams DAILY DENISSE Administration Potassium Phos/Sodium Phos 1 packet 04/20/17 14:00 04/21/17 06:26 Phos-Nak Packet - PO 1 packet TID DENISSE Administration Tamsulosin HCl 0.4 mg 04/20/17 08:30 04/21/17 08:24 Flomax - PO 0.4 mg DAILY@0830 DENISSE Administration ASSESSMENT AND PLAN: This is a 77-year-old man with a history of AML, lung cancer, prostate cancer who presented to the ER with weakness, SOB. 1. Severe sepsis secondary to healthcare-associated pneumonia, possibly gram negative - Improved - Zosyn changed to Levaquin - Lactic acid improved 2. Severe anemia - Transfused 6 units PRBCs - Hemoglobin stable - Likely secondary to sepsis, AML - Iron is normal, TIBC low, iron sat high, ferritin high - LD is high, haptoglobin normal - B12 is normal - Iraj negative - Flow cytometry consistent with AML with 32% blasts - Stool positive for occult blood - Continue Protonix 3. Acute hypoxic respiratory failure secondary to pneumonia, anemia - Improved - Oxygen to maintain saturation > 90% 4. Thrombocytopenia - Likely secondary to sepsis, AML - Transfused 1 unit platelets 5. Acute kidney injury secondary to sepsis, hypoperfusion - Improved 6. Stage IV squamous cell lung cancer 7. Prostate cancer 8. AML 9. DVT prophylaxis - SCDs - No anticoagulation secondary to anemia, thrombocytopenia 10. Physical therapy
[2017-04-21 11:19] LABS: BLAST 11 % (0-0)
--- NOTE | 2017-04-21 11:19 | PN ---
Physical Exam: SUBJECTIVE: Patient seen and examined at bedside. No acute events overnight. Pt has no complaints at this time. OBJECTIVE: Vital Signs Temperature 98.1 F 04/21/17 06:00 Pulse Rate 96 H 04/21/17 06:00 Respiratory Rate 18 04/21/17 06:00 Blood Pressure 110/64 04/21/17 06:00 O2 Sat by Pulse Oximetry (%) 95 04/20/17 21:00 GENERAL: The patient is awake, alert, and fully oriented, in no acute distress. HEAD: Normal with no signs of trauma. EYES: extraocular movements intact. ENT: Ears normal, nares patent NECK: full range of motion LUNGS: Breath sounds equal, clear to auscultation bilaterally HEART: Regular rate and rhythm, S1, S2+ ABDOMEN: Soft, nontender, nondistended, normoactive bowel sounds EXTREMITIES: warm, well-perfused. NEUROLOGICAL: Normal speech, gait not observed. PSYCH: Normal mood, normal affect. SKIN: Warm, dry Laboratory Results - last 24 hr 04/21/17 04/21/17 06:00 06:00 WBC 11.5 H RBC 2.78 L Hgb 8.0 L Hct 23.5 L MCV 84.8 MCH 28.8 MCHC 34.0 RDW 16.0 H Plt Count 22 L* MPV 7.7 Neutrophils % No Result Required. Lymphocytes % No Result Required. Sodium 140 Potassium 4.5 Chloride 107 Carbon Dioxide 24 Anion Gap 9 BUN 14 D Creatinine 0.7 Creat Clearance w eGFR > 60 Random Glucose 90 Uric Acid 4.6 Calcium 7.7 L Phosphorus 2.9 D Magnesium 1.8 Total Bilirubin 0.5 AST 17 ALT 19 Alkaline Phosphatase 71 D Total Protein 5.1 L Albumin 2.4 L Active Medications Generic Name Dose Route Start Last Admin Trade Name Freq PRN Reason Stop Dose Admin Allopurinol 100 mg 04/20/17 10:00 04/21/17 10:25 Zyloprim - PO 100 mg DAILY DENISSE Administration Levofloxacin 500 mg 04/21/17 08:00 04/21/17 10:25 Levaquin - PO 500 mg DAILY@0600 DENISSE Administration Nystatin 500,000 units 04/20/17 06:00 04/21/17 06:26 Nystatin Oral Suspension - PO 500,000 units Q6HPO DENISSE Administration Oxycodone HCl 10 mg 04/20/17 00:02 04/21/17 01:19 Roxicodone - PO 10 mg Q6HPO PRN Administration PAIN Pantoprazole Sodium 40 mg 04/20/17 10:00 04/21/17 10:24 Protonix - PO 40 mg DAILY DENISSE Administration Polyethylene Glycol 17 gm 04/20/17 10:00 04/21/17 10:26 Miralax (For Daily Use) - PO 17 grams DAILY DENISSE Administration Potassium Phos/Sodium Phos 1 packet 04/20/17 14:00 04/21/17 06:26 Phos-Nak Packet - PO 1 packet TID DENISSE Administration Tamsulosin HCl 0.4 mg 04/20/17 08:30 04/21/17 08:24 Flomax - PO 0.4 mg DAILY@0830 DENISSE Administration ASSESSMENT/PLAN: 77 y/o M w/PMH of multiple malignancies presented to ER w/lethargy and admitted for acute hypoxic respiratory failure secondary to Hgb of 3.0 -Severe symptomatic anemia -improved, Hgb now 8; s/p 6 units PRBC and 1 unit platelets this admission. -Hgb table -Heme on board -likely secondary to malignancies. (flow consistent with AML) Pt would not like treatment at this time as per heme. Focus on quality of life. -RLL PNA -off zosyn and switched to levaquin 500 mg po qd starting today -ID on board -Leukocytosis -likely secondary to malignancy vs pna. -will monitor -Thrombocytopenia -likely secondary to malignancy -platelets at 22 today -monitor -heme on board -DVT ppx -SCDs, no AC in setting of anemia -GI ppx -Protonix 40 mg po bid -FEN -no fluids at this time -monitor electrolytes -soft diet (tolerating well) -Dispo -dc planning if hgb and platelets remain stable. On oral abx at this time as well. Pending fungal labs. Problem List - Problems (1) MELISSA (acute kidney injury) Code(s): N17.9 - ACUTE KIDNEY FAILURE, UNSPECIFIED (2) AML (acute myeloblastic leukemia) Code(s): C92.00 - ACUTE MYELOBLASTIC LEUKEMIA, NOT HAVING ACHIEVED REMISSION (3) Demand ischemia Code(s): I24.8 - OTHER FORMS OF ACUTE ISCHEMIC HEART DISEASE (4) Symptomatic anemia Code(s): D64.9 - ANEMIA, UNSPECIFIED (5) Anemia Code(s): D64.9 - ANEMIA, UNSPECIFIED Qualifiers: Anemia type: unspecified type Qualified Code(s): D64.9 - Anemia, unspecified (6) Lung cancer Code(s): C34.90 - MALIGNANT NEOPLASM OF UNSP PART OF UNSP BRONCHUS OR LUNG Qualifiers: Laterality: unspecified laterality (7) Weakness Code(s): R53.1 - WEAKNESS Visit type - Emergency Visit Emergency Visit: Yes ED Registration Date: 04/17/17 Care time: The patient presented to the Emergency Department on the above date and was hospitalized for further evaluation of their emergent condition. - New Patient This patient is new to me today: No - Critical Care Critical Care patient: No
--- NOTE | 2017-04-21 17:39 | PN ---
Progress Note (short form) - Note Progress Note: PAtient seen and examined Denies any complaints Last Vital Signs Temp Pulse Resp BP Pulse Ox 98.5 F 86 18 99/44 95 04/21/17 14:31 04/21/17 14:31 04/21/17 14:31 04/21/17 14:31 04/20/17 21:00 Cor: RSR, No murmurs, No gallops Lungs: Clear to P&A Abd: Soft, Normal bowel sounds, No organomegaly Ext:No significant edema Skin: No rashes, Integument intact Abnormal Lab Results 04/17/17 04/18/17 04/21/17 11:40 06:05 06:00 WBC 11.5 H RBC 2.78 L Hgb 8.0 L Hct 23.5 L RDW 16.0 H Plt Count 22 L* Monocytes % (Manual) 12 H D Blast Cells % (Manual) 11 H D Calcium Total Protein Albumin Crossmatch See Detail See Detail 04/21/17 06:00 WBC RBC Hgb Hct RDW Plt Count Monocytes % (Manual) Blast Cells % (Manual) Calcium 7.7 L Total Protein 5.1 L Albumin 2.4 L Crossmatch Active Medications Generic Name Dose Route Start Last Admin Trade Name Freq PRN Reason Stop Dose Admin Allopurinol 100 mg 04/20/17 10:00 04/21/17 10:25 Zyloprim - PO 100 mg DAILY DENISSE Administration Levofloxacin 500 mg 04/21/17 08:00 04/21/17 10:25 Levaquin - PO 500 mg DAILY@0600 DENISSE Administration Nystatin 500,000 units 04/20/17 06:00 04/21/17 06:26 Nystatin Oral Suspension - PO 500,000 units Q6HPO DENISSE Administration Oxycodone HCl 10 mg 04/20/17 00:02 04/21/17 01:19 Roxicodone - PO 10 mg Q6HPO PRN Administration PAIN Pantoprazole Sodium 40 mg 04/20/17 10:00 04/21/17 10:24 Protonix - PO 40 mg DAILY DENISSE Administration Polyethylene Glycol 17 gm 04/20/17 10:00 04/21/17 10:26 Miralax (For Daily Use) - PO 17 grams DAILY DENISSE Administration Potassium Phos/Sodium Phos 1 packet 04/20/17 14:00 04/21/17 06:26 Phos-Nak Packet - PO 1 packet TID DENISSE Administration Tamsulosin HCl 0.4 mg 04/20/17 08:30 04/21/17 08:24 Flomax - PO 0.4 mg DAILY@0830 DENISSE Administration A/P 77 y/o patient with Stage IV Squamous cell lung Ca ( presently on Nivolumab , last dose, early Mar) AML ( diagnosed in 09/2016 ,s/p "7+3" chemo ,no further Rx, pt declined) PNA On IV abx -White count on presentation high ,likely a reflection of infectious process too -supportive care, PRBC and platelets, as needed -flow consistent with AML, declining performance status ongoing discussion regarding goals of care
[2017-04-22] MEDS: NYSTATIN 500,000 UNITS/5 ML SUSPENSION PO SCH ×4 (05:35→23:09)
[2017-04-22] MEDS: NAPH,MB-DB/K PH,MBDB POWDER PACKET PO SCH ×3 (05:35→22:20)
[2017-04-22] MEDS: LEVOFLOXACIN 500 MG TABLET (FP) PO SCH (05:35)
[2017-04-22 07:15] LABS: MCHC 34.5 g/dl (32.0-35.9); MEAN CELL VOLUME 84.1 fl (80-96); MEAN PLT VOLUME 7.6 fl (7.5-11.1); RDW 15.8 % (11.9-15.9); WHITE BLOOD COUNT 11.7 K/mm3 (4.0-10.0)
[2017-04-22 07:23] LABS: PLATELET COUNT 15 K/MM3 (134-434)
[2017-04-22 07:28] LABS: ALBUMIN 2.1 g/dl (3.4-5.0); ANION GAP 6 (8-16); CALCIUM 7.6 mg/dL (8.5-10.1); CO2 26 mmol/L (21-32); CREATININE 0.8 mg/dL (0.7-1.3); GLUCOSE,RANDOM 95 mg/dL (74-106); MAGNESIUM 1.5 mg/dL (1.8-2.4); PHOSPHOROUS 2.6 mg/dL (2.5-4.9); SGOT/AST 11 U/L (15-37); SGPT/ALT 14 U/L (12-78)
[2017-04-22 07:30] LABS: ALK PHOS 68 U/L (45-117); BILIRUBIN,TOTAL 0.5 mg/dL (0.2-1.0); TOT PROT 4.6 g/dl (6.4-8.2)
[2017-04-22 07:47] LABS: INR 1.61 (0.82-1.09); PROTHROMBIN TIME (PATIENT) 17.9 SEC (9.98-11.88)
[2017-04-22 07:49] LABS: ACTIVATED PTT 32.7 SECONDS (26.9-34.4)
--- NOTE | 2017-04-22 08:38 | PN ---
Progress Note (short form) - Note Progress Note: ID Oral levofloxacin now Looks comfortable no fevers SOB Still with couph Selected Entries 04/22/17 05:58 Temperature 98.9 F Pulse Rate 97 H Respiratory 20 Rate Blood Pressure 99/55 Lungs Rhonchi RLL Cor S1 S2 Grade 3/6 systolic murumur LSB ABd Soft nontender no organomegaly Ext No CCE Microbiology 04/18/17 22:45 Sputum - Expectorated AARON Preparation - Preliminary 04/18/17 22:45 Sputum - Expectorated Fungal Culture - Preliminary Laboratory Tests 04/19/17 04/19/17 04/22/17 05:10 05:10 06:00 WBC 11.7 H Hgb 7.4 L Hct 21.3 L Plt Count 15 L* D BUN A. galactomannan Ag Pending Beta-(1,3)-D-Glucan Pending 04/22/17 06:00 WBC Hgb Hct Plt Count BUN 11 D A. galactomannan Ag Beta-(1,3)-D-Glucan Assessment Stage 4 lung CA ? Pneumonia completing ZULEMA Declining counts Plan Finish Levofloxacin ? Transfusion per hematology Little more to offer from ID arden Ruiz MD
[2017-04-22 08:59] LABS: PLATELET ESTIMATE DECREASED (NORMAL); TOTAL CELLS COUNTED 100
[2017-04-22] MEDS: PANTOPRAZOLE 40 MG TABLET (FP) PO SCH (09:07)
[2017-04-22] MEDS: TAMSULOSIN HCL 0.4 MG CAP.ER.24H (FP) PO SCH (09:07)
[2017-04-22] MEDS: ALLOPURINOL 100 MG TABLET (FP) PO SCH (09:08)
[2017-04-22] MEDS: POLYETHYLENE GLYCOL 3350 119 GM BTL PO SCH (10:17)
--- NOTE | 2017-04-22 12:07 | PN ---
Physical Exam: SUBJECTIVE: Patient seen and examined. He has no complaints. OBJECTIVE: Vital Signs Period Temp Pulse Resp BP Sys/Leigh Pulse Ox Last 24 Hr 98.4 F-99.3 F 83-100 18-20 92-99/44-56 94-97 GENERAL: The patient is awake, alert, and fully oriented, in no acute distress. LUNGS: Breath sounds equal, clear to auscultation bilaterally, no wheezes, no crackles, no accessory muscle use. HEART: Regular rate and rhythm, S1, S2, (+) 2/6 systolic murmur. ABDOMEN: Soft, nontender, nondistended, normoactive bowel sounds, no guarding, no rebound, no hepatosplenomegaly, no masses. EXTREMITIES: 2+ pulses, warm, well-perfused, no edema. Laboratory Results - last 24 hr 04/18/17 04/22/17 04/22/17 06:05 06:00 06:00 WBC 11.7 H RBC 2.53 L Hgb 7.4 L Hct 21.3 L MCV 84.1 MCH 29.0 MCHC 34.5 RDW 15.8 Plt Count 15 L* D MPV 7.6 Total Counted 100 Neutrophils % No Result Required. Neutrophils % (Manual) 58 Band Neuts % (Manual) 7 D Lymphocytes % No Result Required. Lymphocytes % (Manual) 20 Monocytes % (Manual) 8 Platelet Estimate Decreased Platelet Comment No clumping noted PT with INR INR PTT (Actin FS) Fibrinogen Sodium 136 Potassium 4.3 Chloride 104 Carbon Dioxide 26 Anion Gap 6 L BUN 11 D Creatinine 0.8 Creat Clearance w eGFR > 60 Random Glucose 95 Calcium 7.6 L Phosphorus 2.6 Magnesium 1.5 L Total Bilirubin 0.5 AST 11 L D ALT 14 D Alkaline Phosphatase 68 Total Protein 4.6 L Albumin 2.1 L Blood Type Antibody Screen Direct Antiglob Test Negative Crossmatch See Detail 04/22/17 04/22/17 06:00 08:25 WBC RBC Hgb Hct MCV MCH MCHC RDW Plt Count MPV Total Counted Neutrophils % Neutrophils % (Manual) Band Neuts % (Manual) Lymphocytes % Lymphocytes % (Manual) Monocytes % (Manual) Platelet Estimate Platelet Comment PT with INR 17.90 H INR 1.61 H PTT (Actin FS) 32.7 Fibrinogen 370.0 D Sodium Potassium Chloride Carbon Dioxide Anion Gap BUN Creatinine Creat Clearance w eGFR Random Glucose Calcium Phosphorus Magnesium Total Bilirubin AST ALT Alkaline Phosphatase Total Protein Albumin Blood Type B POSITIVE Antibody Screen Negative Direct Antiglob Test Crossmatch Active Medications Generic Name Dose Route Start Last Admin Trade Name Harshalq PRN Reason Stop Dose Admin Allopurinol 100 mg 04/20/17 10:00 04/22/17 09:08 Zyloprim - PO 100 mg DAILY DENISSE Administration Levofloxacin 500 mg 04/21/17 08:00 04/22/17 05:35 Levaquin - PO 500 mg DAILY@0600 DENISSE Administration Nystatin 500,000 units 04/20/17 06:00 04/22/17 05:35 Nystatin Oral Suspension - PO 500,000 units Q6HPO DENISSE Administration Oxycodone HCl 10 mg 04/20/17 00:02 04/21/17 22:52 Roxicodone - PO 10 mg Q6HPO PRN Administration PAIN Pantoprazole Sodium 40 mg 04/20/17 10:00 04/22/17 09:07 Protonix - PO 40 mg DAILY DENISSE Administration Polyethylene Glycol 17 gm 04/20/17 10:00 04/22/17 10:17 Miralax (For Daily Use) - PO 17 grams DAILY DENISSE Administration Potassium Phos/Sodium Phos 1 packet 04/20/17 14:00 04/22/17 05:35 Phos-Nak Packet - PO 1 packet TID DENISSE Administration Tamsulosin HCl 0.4 mg 04/20/17 08:30 04/22/17 09:07 Flomax - PO 0.4 mg DAILY@0830 DENISSE Administration ASSESSMENT/PLAN: This is a 77-year-old man with a history of AML, lung cancer, prostate cancer who presented to the ER with weakness, SOB. 1. Severe sepsis secondary to healthcare-associated pneumonia, possibly gram negative - Improved - Continue Levaquin 2. Severe anemia - Transfused 6 units PRBCs - Hemoglobin 8.0 -> 7.4 - Likely secondary to sepsis, AML - Iron is normal, TIBC low, iron sat high, ferritin high - LD is high, haptoglobin normal - B12 is normal - Iraj negative - Flow cytometry consistent with AML with 32% blasts - Stool positive for occult blood - Continue Protonix 3. Acute hypoxic respiratory failure secondary to pneumonia, anemia - Improved - Oxygen to maintain saturation > 90% 4. Thrombocytopenia - Likely secondary to sepsis, AML - Transfused 1 unit platelets - Will transfuse 1 unit platelets today (platelet count 15 with decreasing hemoglobin) 5. Acute kidney injury secondary to sepsis, hypoperfusion - Improved 6. Stage IV squamous cell lung cancer - Currently being treated with nivolumab 7. Prostate cancer 8. AML - Previously treated with chemotherapy - Patient has refused further treatment 9. DVT prophylaxis - SCDs - No anticoagulation secondary to anemia, thrombocytopenia 10. Continue physical therapy Visit type - Emergency Visit Emergency Visit: Yes ED Registration Date: 04/17/17 Care time: The patient presented to the Emergency Department on the above date and was hospitalized for further evaluation of their emergent condition. - New Patient This patient is new to me today: No - Critical Care Critical Care patient: No - Discharge Referral Referred to [facility] Med P.C.: No
[2017-04-22 12:59] LABS: ASPERGILLUS GALACTOMANNAN AG 0.04
--- NOTE | 2017-04-22 19:37 | PN ---
Progress Note (short form) - Note Progress Note: PAtient seen and examined Denies any complaints AFVSS Cor: RSR, No murmurs, No gallops Lungs: Clear to P&A Abd: Soft, Normal bowel sounds, No organomegaly Ext:No significant edema Skin: No rashes, Integument intact Abnormal Lab Results 04/22/17 04/22/17 04/22/17 06:00 06:00 06:00 WBC 11.7 H RBC 2.53 L Hgb 7.4 L Hct 21.3 L Plt Count 15 L* D PT with INR 17.90 H INR 1.61 H Anion Gap 6 L Creatinine Calcium 7.6 L Magnesium 1.5 L AST 11 L D Total Protein 4.6 L Albumin 2.1 L Crossmatch 04/22/17 04/23/17 04/23/17 08:25 05:35 05:35 WBC 11.1 H RBC 2.44 L Hgb 6.9 L* Hct 20.7 L Plt Count 38 L D PT with INR INR Anion Gap Creatinine 0.6 L D Calcium 7.7 L Magnesium 1.5 L AST 12 L Total Protein 4.8 L Albumin 2.3 L Crossmatch See Detail 04/23/17 05:35 WBC RBC Hgb Hct Plt Count PT with INR 18.50 H INR 1.66 H Anion Gap Creatinine Calcium Magnesium AST Total Protein Albumin Crossmatch Home Medication List Medication Instructions Recorded Confirmed Type Docusate Sodium [Colace -] 100 mg PO DAILY 04/17/17 04/17/17 History Oxycodone HCl 10 mg PO Q6H 04/17/17 04/17/17 History Sennosides [Senna] 8.6 mg PO DAILY 04/17/17 04/17/17 History Tamsulosin HCl [Flomax] 0.4 mg PO DAILY 04/17/17 04/17/17 History Active Medications Generic Name Dose Route Start Last Admin Trade Name Freq PRN Reason Stop Dose Admin Allopurinol 100 mg 04/20/17 10:00 04/22/17 09:08 Zyloprim - PO 100 mg DAILY DENISSE Administration Levofloxacin 500 mg 04/21/17 08:00 04/23/17 05:56 Levaquin - PO 500 mg DAILY@0600 DENISSE Administration Nystatin 500,000 units 04/20/17 06:00 04/23/17 05:56 Nystatin Oral Suspension - PO 500,000 units Q6HPO DENISSE Administration Oxycodone HCl 10 mg 04/23/17 06:48 Roxicodone - PO 04/24/17 06:47 ONCE PRN PAIN Pantoprazole Sodium 40 mg 04/20/17 10:00 04/22/17 09:07 Protonix - PO 40 mg DAILY DENISSE Administration Polyethylene Glycol 17 gm 04/20/17 10:00 04/22/17 10:17 Miralax (For Daily Use) - PO 17 grams DAILY DENISSE Administration Potassium Phos/Sodium Phos 1 packet 04/20/17 14:00 04/23/17 05:56 Phos-Nak Packet - PO 1 packet TID DENISSE Administration Tamsulosin HCl 0.4 mg 04/20/17 08:30 04/22/17 09:07 Flomax - PO 0.4 mg DAILY@0830 DENISSE Administration A/P 77 y/o patient with Stage IV Squamous cell lung Ca ( presently on Nivolumab , last dose, early Mar) AML ( diagnosed in 09/2016 ,s/p "7+3" chemo ,no further Rx, pt declined) PNA On IV abx -White count on presentation high ,likely a reflection of infectious process too -supportive care, PRBC and platelets, as needed -flow consistent with AML, s/p 1 unit platelts today declining performance status ongoing discussion regarding goals of care
[2017-04-22] MEDS: oxyCODONE HCL 5 MG TABLET PO PRN (20:07)
[2017-04-23] MEDS: LEVOFLOXACIN 500 MG TABLET (FP) PO SCH (05:56)
[2017-04-23] MEDS: NYSTATIN 500,000 UNITS/5 ML SUSPENSION PO SCH ×3 (05:56→17:01)
[2017-04-23] MEDS: NAPH,MB-DB/K PH,MBDB POWDER PACKET PO SCH ×3 (05:56→21:21)
[2017-04-23 06:03] LABS: MCH 28.4 pg (25.7-33.7); MCHC 33.6 g/dl (32.0-35.9); MEAN CELL VOLUME 84.6 fl (80-96); MEAN PLT VOLUME 7.5 fl (7.5-11.1); PLATELET COUNT 38 K/MM3 (134-434); RDW 15.9 % (11.9-15.9); WHITE BLOOD COUNT 11.1 K/mm3 (4.0-10.0)
[2017-04-23 06:16] LABS: INR 1.66 (0.82-1.09); PROTHROMBIN TIME (PATIENT) 18.5 SEC (9.98-11.88)
[2017-04-23 06:19] LABS: ACTIVATED PTT 33.8 SECONDS (26.9-34.4)
--- NOTE | 2017-04-23 06:20 | PN ---
Physical Exam: SUBJECTIVE: Patient seen and examined at bedside. No new complaints. Patient is s/p 1 u PRBC yesterday and 1 u Platelets over the weekend. 1 additional u ordered for today. OBJECTIVE: Vital Signs Period Temp Pulse Resp BP Sys/Leigh Pulse Ox Last 24 Hr 98.2 F-99.3 F 85-100 18-20 93-104/46-56 94-96 GENERAL: The patient is awake, alert, and fully oriented, in no acute distress. HEAD: Normal with no signs of trauma. EYES: extraocular movements intact, sclera anicteric, conjunctiva clear. No ptosis. NECK: Trachea midline, full range of motion, supple. LUNGS: Breath sounds equal, clear to auscultation bilaterally, no wheezes, no crackles, no accessory muscle use. HEART: Regular rate and rhythm, S1, S2 without murmur, rub or gallop. ABDOMEN: Soft, nontender, nondistended, normoactive bowel sounds, no guarding, no rebound, no hepatosplenomegaly, no masses. EXTREMITIES: 2+ pulses, warm, well-perfused, no edema. NEUROLOGICAL: Cranial nerves II through X grossly intact. Normal speech, gait not observed. SKIN: Warm, dry, normal turgor, no rashes or lesions noted Laboratory Results - last 24 hr 04/19/17 04/22/17 04/22/17 05:10 06:00 06:00 WBC 11.7 H RBC 2.53 L Hgb 7.4 L Hct 21.3 L MCV 84.1 MCH 29.0 MCHC 34.5 RDW 15.8 Plt Count 15 L* D MPV 7.6 Total Counted 100 Neutrophils % No Result Required. Neutrophils % (Manual) 58 Band Neuts % (Manual) 7 D Lymphocytes % No Result Required. Lymphocytes % (Manual) 20 Monocytes % (Manual) 8 Platelet Estimate Decreased Platelet Comment No clumping noted PT with INR INR PTT (Actin FS) Fibrinogen Sodium 136 Potassium 4.3 Chloride 104 Carbon Dioxide 26 Anion Gap 6 L BUN 11 D Creatinine 0.8 Creat Clearance w eGFR > 60 Random Glucose 95 Calcium 7.6 L Phosphorus 2.6 Magnesium 1.5 L Total Bilirubin 0.5 AST 11 L D ALT 14 D Alkaline Phosphatase 68 Total Protein 4.6 L Albumin 2.1 L A. galactomannan Ag 0.04 Blood Type Antibody Screen 04/22/17 04/22/17 04/23/17 06:00 08:25 05:35 WBC 11.1 H RBC 2.44 L Hgb 6.9 L* Hct 20.7 L MCV 84.6 MCH 28.4 MCHC 33.6 RDW 15.9 Plt Count 38 L D MPV 7.5 Total Counted Neutrophils % No Result Required. Neutrophils % (Manual) Band Neuts % (Manual) Lymphocytes % No Result Required. Lymphocytes % (Manual) Monocytes % (Manual) Platelet Estimate Platelet Comment PT with INR 17.90 H INR 1.61 H PTT (Actin FS) 32.7 Fibrinogen 370.0 D Sodium Potassium Chloride Carbon Dioxide Anion Gap BUN Creatinine Creat Clearance w eGFR Random Glucose Calcium Phosphorus Magnesium Total Bilirubin AST ALT Alkaline Phosphatase Total Protein Albumin A. galactomannan Ag Blood Type B POSITIVE Antibody Screen Negative 04/23/17 05:35 WBC RBC Hgb Hct MCV MCH MCHC RDW Plt Count MPV Total Counted Neutrophils % Neutrophils % (Manual) Band Neuts % (Manual) Lymphocytes % Lymphocytes % (Manual) Monocytes % (Manual) Platelet Estimate Platelet Comment PT with INR 18.50 H INR 1.66 H PTT (Actin FS) 33.8 Fibrinogen Sodium Potassium Chloride Carbon Dioxide Anion Gap BUN Creatinine Creat Clearance w eGFR Random Glucose Calcium Phosphorus Magnesium Total Bilirubin AST ALT Alkaline Phosphatase Total Protein Albumin A. galactomannan Ag Blood Type Antibody Screen Active Medications Generic Name Dose Route Start Last Admin Trade Name Freq PRN Reason Stop Dose Admin Allopurinol 100 mg 04/20/17 10:00 04/22/17 09:08 Zyloprim - PO 100 mg DAILY DENISSE Administration Levofloxacin 500 mg 04/21/17 08:00 04/23/17 05:56 Levaquin - PO 500 mg DAILY@0600 DENISSE Administration Nystatin 500,000 units 04/20/17 06:00 04/23/17 05:56 Nystatin Oral Suspension - PO 500,000 units Q6HPO DENISSE Administration Pantoprazole Sodium 40 mg 04/20/17 10:00 04/22/17 09:07 Protonix - PO 40 mg DAILY DENISSE Administration Polyethylene Glycol 17 gm 04/20/17 10:00 04/22/17 10:17 Miralax (For Daily Use) - PO 17 grams DAILY DENISSE Administration Potassium Phos/Sodium Phos 1 packet 04/20/17 14:00 04/23/17 05:56 Phos-Nak Packet - PO 1 packet TID DENISSE Administration Tamsulosin HCl 0.4 mg 04/20/17 08:30 04/22/17 09:07 Flomax - PO 0.4 mg DAILY@0830 [facility] Administration ASSESSMENT/PLAN: This is a 77 yo M w/ PMH of multiple malignacies who was BIBEMS c/o increased SOB, cough, decreased PO intake and lethargy for 1 week. He was admitted for acute hypoxemic respiratory failure 2/2 severe symptomatic anemia and MELISSA. #Severe symptomatic anemia likely 2/2 malignancy -last Hb 6.5 -s/p total 7u PRBC, 2u Plt this admission -hematology onboard -advance diet #thrombocytopenia likely 2/2 malignancy -hematology consult -s/p 1 u platelets yesterday -plt now 38 (was 15) -will transfuse platelets as per protocol #leukocytosis likley 2/2 malignancy -22.6 in ED -ID consult -s/p vancomycin, zosyn in ED -improving; 9.8 today #Severe Sepsis likely 2/2 RLL PNA- resolving -CXR showing RLL consolidation/atalectasis -ucx, bcx negative to date -ID consult, will follow reccs -levaquin day 3 #MELISSA likely 2/2 anemia vs severe sepsis vs post renal causes- resolved -BUN 83, Cr 1.8 on admission -patient back at baseline creatinine .8 #Acute hypoxemic respiratory failure likely 2/2 severe symptomatic anemia vs PNA - resolved #lactic acidosis likley 2/2 severe sepsis vs anemia- resolved #FEN -no indication for fluids -monitor lytes -soft diet #Prophy -SCDs; anticoagulation c/i in setting of possible bleed and anemia -Protonix 40mg PO BID #dispo -admit to med surg Problem List - Problems (1) MELISSA (acute kidney injury) Code(s): N17.9 - ACUTE KIDNEY FAILURE, UNSPECIFIED (2) AML (acute myeloblastic leukemia) Code(s): C92.00 - ACUTE MYELOBLASTIC LEUKEMIA, NOT HAVING ACHIEVED REMISSION (3) Lactic acidosis Code(s): E87.2 - ACIDOSIS (4) Symptomatic anemia Code(s): D64.9 - ANEMIA, UNSPECIFIED (5) Syncope Code(s): R55 - SYNCOPE AND COLLAPSE (6) Lung cancer Code(s): C34.90 - MALIGNANT NEOPLASM OF UNSP PART OF UNSP BRONCHUS OR LUNG Qualifiers: Laterality: unspecified laterality (7) Prostate cancer Code(s): C61 - MALIGNANT NEOPLASM OF PROSTATE Visit type - Emergency Visit Emergency Visit: Yes ED Registration Date: 04/17/17 Care time: The patient presented to the Emergency Department on the above date and was hospitalized for further evaluation of their emergent condition. - New Patient This patient is new to me today: No - Critical Care Critical Care patient: No
[2017-04-23 06:29] LABS: ALBUMIN 2.3 g/dl (3.4-5.0); ANION GAP 9 (8-16); CALCIUM 7.7 mg/dL (8.5-10.1); CO2 26 mmol/L (21-32); CREATININE 0.6 mg/dL (0.7-1.3); GLUCOSE,RANDOM 93 mg/dL (74-106); MAGNESIUM 1.5 mg/dL (1.8-2.4); PHOSPHOROUS 2.8 mg/dL (2.5-4.9); SGOT/AST 12 U/L (15-37); SGPT/ALT 14 U/L (12-78)
[2017-04-23 06:31] LABS: ALK PHOS 68 U/L (45-117); BILIRUBIN,TOTAL 0.6 mg/dL (0.2-1.0); TOT PROT 4.8 g/dl (6.4-8.2)
[2017-04-23] MEDS ORDERED: oxyCODONE HCL 5 MG TABLET PO ONE (07:30)
[2017-04-23] MEDS ORDERED: oxyCODONE HCL 5 MG TABLET PO PRN (08:02)
[2017-04-23] MEDS: TAMSULOSIN HCL 0.4 MG CAP.ER.24H (FP) PO SCH (08:20)
[2017-04-23] MEDS ORDERED: MAGNESIUM OXIDE 400 MG TABLET (FP) PO ONE (08:30)
[2017-04-23 08:35] LABS: BLAST 14 % (0-0); PLATELET ESTIMATE MARKEDLY DECREASED (NORMAL); TOTAL CELLS COUNTED 100
[2017-04-23] MEDS: PANTOPRAZOLE 40 MG TABLET (FP) PO SCH (10:11)
[2017-04-23] MEDS: ALLOPURINOL 100 MG TABLET (FP) PO SCH (10:11)
[2017-04-23] MEDS: POLYETHYLENE GLYCOL 3350 119 GM BTL PO SCH (10:12)
--- NOTE | 2017-04-23 11:41 | PN ---
Teaching Attending Note Name of Resident: Dale Blas ATTENDING PHYSICIAN STATEMENT I saw and evaluated the patient. I reviewed the resident's note and discussed the case with the resident. I agree with the resident's findings and plan as documented. SUBJECTIVE: Patient has no complaints and is frustrated that he continues to require transfusions. OBJECTIVE: Vital Signs Period Temp Pulse Resp BP Sys/Leigh Pulse Ox Last 24 Hr 97.4 F-98.4 F 85-99 18-20 93-121/44-71 96-98 HEART: S1S2, RRR LUNGS: Clear ABDOMEN: Soft, non-tender, non-distended, normal BS EXTREMITIES: No edema Current Medications Generic Name Dose Route Start Last Admin Trade Name Freq PRN Reason Stop Dose Admin Allopurinol 100 mg 04/20/17 10:00 04/23/17 10:11 Zyloprim - PO 100 mg DAILY DENISSE Administration Levofloxacin 500 mg 04/21/17 08:00 04/23/17 05:56 Levaquin - PO 500 mg DAILY@0600 DENISSE Administration Nystatin 500,000 units 04/20/17 06:00 04/23/17 05:56 Nystatin Oral Suspension - PO 500,000 units Q6HPO DENISSE Administration Oxycodone HCl 10 mg 04/23/17 08:02 Roxicodone - PO Q6H PRN PAIN Pantoprazole Sodium 40 mg 04/20/17 10:00 04/23/17 10:11 Protonix - PO 40 mg DAILY DENISSE Administration Polyethylene Glycol 17 gm 04/20/17 10:00 04/23/17 10:12 Miralax (For Daily Use) - PO 17 grams DAILY DENISSE Administration Potassium Phos/Sodium Phos 1 packet 04/20/17 14:00 04/23/17 05:56 Phos-Nak Packet - PO 1 packet TID DENISSE Administration Tamsulosin HCl 0.4 mg 04/20/17 08:30 04/23/17 08:20 Flomax - PO 0.4 mg DAILY@0830 DENISSE Administration ASSESSMENT AND PLAN: This is a 77-year-old man with a history of AML, lung cancer, prostate cancer who presented to the ER with weakness, SOB. 1. Severe sepsis secondary to healthcare-associated pneumonia, possibly gram negative - Improved - Continue Levaquin 2. Severe anemia - Transfused 6 units PRBCs - Hemoglobin 6.9 this morning and he is being transfused 1 unit PRBCs - Likely secondary to sepsis, AML. Explained to patient that without treatment of AML there is unlikely to be improvement in his anemia and thrombocytopenia - Iron is normal, TIBC low, iron sat high, ferritin high - LD is high, haptoglobin normal - B12 is normal - Iraj negative - Flow cytometry consistent with AML with 32% blasts - Stool positive for occult blood - Continue Protonix 3. Acute hypoxic respiratory failure secondary to pneumonia, anemia - Improved - Oxygen to maintain saturation > 90% 4. Thrombocytopenia - Likely secondary to sepsis, AML - Transfused 1 unit platelets - Will transfuse 1 unit platelets today (platelet count 15 with decreasing hemoglobin) 5. Acute kidney injury secondary to sepsis, hypoperfusion - Improved 6. Stage IV squamous cell lung cancer - Currently being treated with nivolumab 7. Prostate cancer 8. AML - Previously treated with chemotherapy - Patient has refused further treatment - Hematology follow-up - Palliative care evaluation 9. Hypomagnesemia - Continue magnesium supplementation 10. Hypophosphatemia - Improved 11. Hypocalcemia - Corrected calcium is 9.1 12. Continue physical therapy
[2017-04-23 14:01] LABS: MCH 28.5 pg (25.7-33.7); MCHC 33.7 g/dl (32.0-35.9); MEAN CELL VOLUME 84.5 fl (80-96); MEAN PLT VOLUME 7.1 fl (7.5-11.1); RDW 15.1 % (11.9-15.9); WHITE BLOOD COUNT 11.6 K/mm3 (4.0-10.0)
[2017-04-23 14:08] LABS: PLATELET COUNT 30 K/MM3 (134-434)
[2017-04-23 19:06] LABS: MCH 28.9 pg (25.7-33.7); MCHC 34.3 g/dl (32.0-35.9); MEAN CELL VOLUME 84.3 fl (80-96); MEAN PLT VOLUME 8.1 fl (7.5-11.1); RDW 15.4 % (11.9-15.9); WHITE BLOOD COUNT 11.5 K/mm3 (4.0-10.0)
[2017-04-23 19:12] LABS: PLATELET COUNT 34 K/MM3 (134-434)
[2017-04-23 21:07] LABS: PLATELET ESTIMATE MARKEDLY DECREASED (NORMAL)
--- NOTE | 2017-04-23 22:17 | PN ---
Progress Note (short form) - Note Progress Note: PAtient seen and examined Denies any complaints AFVSS Cor: RSR, No murmurs, No gallops Lungs: Clear to P&A Abd: Soft, Normal bowel sounds, No organomegaly Ext:No significant edema Skin: No rashes, Integument intact labs/meds reviewed A/P 77 y/o patient with Stage IV Squamous cell lung Ca ( presently on Nivolumab , last dose, early Mar) AML ( diagnosed in 09/2016 ,s/p "7+3" chemo ,no further Rx, pt declined) PNA On IV abx -White count on presentation high ,likely a reflection of infectious process too -supportive care, PRBC and platelets, as needed -flow consistent with AML, s/p 1 unt PRBCs declining performance status ongoing discussion regarding goals of care---- palliative/hospice care discussions. Family meeting on 04/24
[2017-04-24] MEDS: NYSTATIN 500,000 UNITS/5 ML SUSPENSION PO SCH ×4 (01:09→17:07)
[2017-04-24] MEDS: NAPH,MB-DB/K PH,MBDB POWDER PACKET PO SCH ×3 (05:57→21:17)
[2017-04-24] MEDS: LEVOFLOXACIN 500 MG TABLET (FP) PO SCH (05:58)
--- NOTE | 2017-04-24 06:26 | PN ---
Physical Exam: SUBJECTIVE: Patient seen and examined at bedside. Patient appears to have a better morale today. No events overnight. OBJECTIVE: Vital Signs Period Temp Pulse Resp BP Sys/Leigh Pulse Ox Last 24 Hr 97.4 F-99 F 82-93 18-20 83-121/41-71 97-98 GENERAL: The patient is awake, alert, and fully oriented, in no acute distress. HEAD: Normal with no signs of trauma. EYES: extraocular movements intact, sclera anicteric, conjunctiva clear. No ptosis. NECK: Trachea midline, full range of motion, supple. LUNGS: Breath sounds equal, clear to auscultation bilaterally, no wheezes, no crackles, no accessory muscle use. HEART: Regular rate and rhythm, S1, S2 without murmur, rub or gallop. ABDOMEN: Soft, nontender, nondistended, normoactive bowel sounds, no guarding, no rebound, no hepatosplenomegaly, no masses. EXTREMITIES: 2+ pulses, warm, well-perfused, no edema. NEUROLOGICAL: Cranial nerves II through X grossly intact. Normal speech, gait not observed. PSYCH: Normal mood, normal affect. SKIN: Warm, dry, normal turgor, no rashes or lesions noted Laboratory Results - last 24 hr 04/22/17 04/23/17 04/23/17 08:25 05:35 05:35 WBC 11.1 H RBC 2.44 L Hgb 6.9 L* Hct 20.7 L MCV 84.6 MCH 28.4 MCHC 33.6 RDW 15.9 Plt Count 38 L D MPV 7.5 Total Counted 100 Neutrophils % (Manual) 73 D Lymphocytes % (Manual) 7 L D Monocytes % (Manual) 6 Blast Cells % (Manual) 14 H D Differential Comment Platelet Estimate Markedly decreased Sodium 137 Potassium 4.0 Chloride 102 Carbon Dioxide 26 Anion Gap 9 BUN 11 Creatinine 0.6 L D Creat Clearance w eGFR > 60 Random Glucose 93 Calcium 7.7 L Phosphorus 2.8 Magnesium 1.5 L Total Bilirubin 0.6 AST 12 L ALT 14 Alkaline Phosphatase 68 Total Protein 4.8 L Albumin 2.3 L Blood Type B POSITIVE Antibody Screen Negative Crossmatch See Detail 04/23/17 04/23/17 13:45 17:15 WBC 11.6 H 11.5 H RBC 2.66 L 2.80 L Hgb 7.6 L D 8.1 L Hct 22.5 L 23.6 L MCV 84.5 84.3 MCH 28.5 28.9 MCHC 33.7 34.3 RDW 15.1 15.4 Plt Count 30 L* D 34 L* MPV 7.1 L 8.1 D Total Counted Neutrophils % (Manual) Lymphocytes % (Manual) Monocytes % (Manual) Blast Cells % (Manual) Differential Comment Slide scanned Platelet Estimate Markedly decreased Sodium Potassium Chloride Carbon Dioxide Anion Gap BUN Creatinine Creat Clearance w eGFR Random Glucose Calcium Phosphorus Magnesium Total Bilirubin AST ALT Alkaline Phosphatase Total Protein Albumin Blood Type Antibody Screen Crossmatch Active Medications Generic Name Dose Route Start Last Admin Trade Name Freq PRN Reason Stop Dose Admin Allopurinol 100 mg 04/20/17 10:00 04/23/17 10:11 Zyloprim - PO 100 mg DAILY DENISSE Administration Levofloxacin 500 mg 04/21/17 08:00 04/24/17 05:58 Levaquin - PO 500 mg DAILY@0600 DENISSE Administration Nystatin 500,000 units 04/20/17 06:00 04/24/17 05:57 Nystatin Oral Suspension - PO 500,000 units Q6HPO DENISSE Administration Oxycodone HCl 10 mg 04/23/17 08:02 04/23/17 20:40 Roxicodone - PO 10 mg Q6H PRN Administration PAIN Pantoprazole Sodium 40 mg 04/20/17 10:00 04/23/17 10:11 Protonix - PO 40 mg DAILY DENISSE Administration Polyethylene Glycol 17 gm 04/20/17 10:00 04/23/17 10:12 Miralax (For Daily Use) - PO 17 grams DAILY DENISSE Administration Potassium Phos/Sodium Phos 1 packet 04/20/17 14:00 04/24/17 05:57 Phos-Nak Packet - PO 1 packet TID DENISSE Administration Tamsulosin HCl 0.4 mg 04/20/17 08:30 04/23/17 08:20 Flomax - PO 0.4 mg DAILY@0830 DENISSE Administration ASSESSMENT/PLAN: This is a 77 yo M w/ PMH of multiple malignacies who was BIBEMS c/o increased SOB, cough, decreased PO intake and lethargy for 1 week. He was admitted for acute hypoxemic respiratory failure 2/2 severe symptomatic anemia and MELISSA. #Severe symptomatic anemia likely 2/2 malignancy -last Hb 8.8 -s/p total 7u PRBC, 2u Plt this admission -hematology onboard #thrombocytopenia likely 2/2 malignancy -hematology consult -s/p 1 u platelets sunday -plt now 28 (was 38) -will transfuse platelets as per protocol #leukocytosis gail 2/2 malignancy -22.6 in ED -ID consult -s/p vancomycin, zosyn in ED - WBC 10.7 today #Severe Sepsis likely 2/2 RLL PNA- resolving -CXR showing RLL consolidation/atalectasis -ucx, bcx negative to date -ID consult, will follow reccs -levaquin day 4 #MELISSA likely 2/2 anemia vs severe sepsis vs post renal causes- resolved -BUN 83, Cr 1.8 on admission -patient back at baseline creatinine .8 #Acute hypoxemic respiratory failure likely 2/2 severe symptomatic anemia vs PNA - resolved #lactic acidosis likley 2/2 severe sepsis vs anemia- resolved #FEN -no indication for fluids -monitor lytes -soft diet #Prophy -SCDs; anticoagulation c/i in setting of possible bleed and anemia -Protonix 40mg PO BID #dispo -admit to med surg -Had family meeting today; palliative care nurse, Dr. Garcia, patient and patient's sister were present. Discussed terminal nature of the patient's illness and discussed the goals of care. provided options for hospice care. Patient elected to go to [facility]. Problem List - Problems (1) MELISSA (acute kidney injury) Code(s): N17.9 - ACUTE KIDNEY FAILURE, UNSPECIFIED (2) AML (acute myeloblastic leukemia) Code(s): C92.00 - ACUTE MYELOBLASTIC LEUKEMIA, NOT HAVING ACHIEVED REMISSION (3) Lactic acidosis Code(s): E87.2 - ACIDOSIS (4) Symptomatic anemia Code(s): D64.9 - ANEMIA, UNSPECIFIED (5) Syncope Code(s): R55 - SYNCOPE AND COLLAPSE (6) Lung cancer Code(s): C34.90 - MALIGNANT NEOPLASM OF UNSP PART OF UNSP BRONCHUS OR LUNG Qualifiers: Laterality: unspecified laterality (7) Prostate cancer Code(s): C61 - MALIGNANT NEOPLASM OF PROSTATE Visit type - Emergency Visit Emergency Visit: Yes ED Registration Date: 04/17/17 Care time: The patient presented to the Emergency Department on the above date and was hospitalized for further evaluation of their emergent condition. - New Patient This patient is new to me today: No - Critical Care Critical Care patient: No
--- NOTE | 2017-04-24 06:29 | HOSP ---
Subjective - Review of Symptoms Events since last encounter: Was called to see pt because he slipped and fell in the bathroom. When speaking with the patient, he was in no pain and stated that he simply slipped a bit and fell backward onto the metal tubing of the toilet. He sustained a very superficial abrasion on his back, which barely bled. Pt adamantly denies LOC, dizziness, CP,palpitations or any other symptoms. He says he just slipped. vital signs wnl. Will order bacitracin oinment for the abrasion. Physical Examination Vital Signs: Vital Signs Temperature 98.6 F 04/24/17 05:49 Pulse Rate 86 04/24/17 05:49 Respiratory Rate 18 04/24/17 05:49 Blood Pressure 99/46 04/24/17 05:49 O2 Sat by Pulse Oximetry (%) 97 04/23/17 20:45 Labs: CBC, BMP 04/23/17 17:15 04/23/17 05:35 Visit type - Emergency Visit Emergency Visit: No - New Patient This patient is new to me today: Yes Date on this admission: 04/26/17 - Critical Care Critical Care patient: No
[2017-04-24 07:21] LABS: MCH 29.1 pg (25.7-33.7); MCHC 34.4 g/dl (32.0-35.9); MEAN CELL VOLUME 84.7 fl (80-96); MEAN PLT VOLUME 7.6 fl (7.5-11.1); RDW 15.5 % (11.9-15.9); WHITE BLOOD COUNT 10.7 K/mm3 (4.0-10.0)
[2017-04-24 07:31] LABS: ALBUMIN 2.4 g/dl (3.4-5.0); ANION GAP 8 (8-16); CALCIUM 7.8 mg/dL (8.5-10.1); CO2 28 mmol/L (21-32); CREATININE 0.8 mg/dL (0.7-1.3); GLUCOSE,RANDOM 100 mg/dL (74-106); MAGNESIUM 1.4 mg/dL (1.8-2.4)
[2017-04-24 07:34] LABS: INR 1.53 (0.82-1.09)
[2017-04-24 07:37] LABS: ACTIVATED PTT 32.6 SECONDS (26.9-34.4)
[2017-04-24 07:51] LABS: PLATELET COUNT 28 K/MM3 (134-434)
[2017-04-24] MEDS: TAMSULOSIN HCL 0.4 MG CAP.ER.24H (FP) PO SCH (08:21)
[2017-04-24] MEDS ORDERED: MAGNESIUM SULF 50% (8.12 MEQ/2 ML-1 GM VIAL) IVPB ONE (08:30)
[2017-04-24] MEDS ORDERED: MAGNESIUM SULF 50% (8.12 MEQ/2 ML-1 GM VIAL) ONE (09:01)
[2017-04-24] MEDS: PANTOPRAZOLE 40 MG TABLET (FP) PO SCH (09:03)
[2017-04-24] MEDS: ALLOPURINOL 100 MG TABLET (FP) PO SCH (09:03)
[2017-04-24] MEDS: POLYETHYLENE GLYCOL 3350 119 GM BTL PO SCH (09:04)
[2017-04-24] MEDS: BACITRACIN/POLYMYXIN B SULFATE 15 GM TUBE TP SCH (10:24)
--- NOTE | 2017-04-24 11:10 | EKG ---
Test Reason : Blood Pressure : / mmHG Vent. Rate : 087 BPM Atrial Rate : 087 BPM P-R Int : 136 ms QRS Dur : 078 ms QT Int : 358 ms P-R-T Axes : 054 -76 041 degrees QTc Int : 430 ms NORMAL SINUS RHYTHM INDETERMINATE AXIS LOW VOLTAGE QRS EARLY TRANSITION IN V1 POSSIBILITY OF RIGHT VENTRICULAR ENLARGEMENT VS TRUE POSTERIOR WALL TX NEEDS TO BE EXCLUDED ATRIAL ABNORMALITY WHEN COMPARED WITH ECG OF 17-APR-2017 14:48, PREMATURE VENTRICULAR COMPLEXES ARE NO LONGER PRESENT Confirmed by ELLEN MUNIZ MD ([id number]) on 04/24/2017 11:10:47 AM Referred By: Kenton MCCORMICK Confirmed By:ELLEN MUNIZ MD
--- NOTE | 2017-04-24 12:51 | PN ---
Teaching Attending Note Name of Resident: Dale Blas ATTENDING PHYSICIAN STATEMENT I saw and evaluated the patient. I reviewed the resident's note and discussed the case with the resident. I agree with the resident's findings and plan as documented. SUBJECTIVE: Patient has no complaints. He says he now wants to treat AML. This morning he slipped in bathroom and fell hitting his back. OBJECTIVE: Vital Signs Period Temp Pulse Resp BP Sys/Leigh Pulse Ox Last 24 Hr 98.0 F-99 F 82-93 18-20 83-103/41-52 97-98 HEART: S1S2, RRR LUNGS: Clear ABDOMEN: Soft, non-tender, non-distended, normal BS EXTREMITIES: No edema Current Medications Generic Name Dose Route Start Last Admin Trade Name Freq PRN Reason Stop Dose Admin Allopurinol 100 mg 04/20/17 10:00 04/24/17 09:03 Zyloprim - PO 100 mg DAILY DENISSE Administration Bacitracin/Polymyxin B Sulfate 1 applic 04/24/17 10:00 04/24/17 10:24 Polysporin Ointment - TP 1 applic DAILY DENISSE Administration Levofloxacin 500 mg 04/21/17 08:00 04/24/17 05:58 Levaquin - PO 500 mg DAILY@0600 DENISSE Administration Nystatin 500,000 units 04/20/17 06:00 04/24/17 11:44 Nystatin Oral Suspension - PO 500,000 units Q6HPO DENISSE Administration Oxycodone HCl 5 mg 04/24/17 08:32 Roxicodone - PO Q6H PRN PAIN Pantoprazole Sodium 40 mg 04/20/17 10:00 04/24/17 09:03 Protonix - PO 40 mg DAILY DENISSE Administration Polyethylene Glycol 17 gm 04/20/17 10:00 04/24/17 09:04 Miralax (For Daily Use) - PO 17 grams DAILY DENISSE Administration Potassium Phos/Sodium Phos 1 packet 04/20/17 14:00 04/24/17 05:57 Phos-Nak Packet - PO 1 packet TID DENISSE Administration Tamsulosin HCl 0.4 mg 04/20/17 08:30 04/24/17 08:21 Flomax - PO 0.4 mg DAILY@0830 DENISSE Administration ASSESSMENT AND PLAN: This is a 77-year-old man with a history of AML, lung cancer, prostate cancer who presented to the ER with weakness, SOB. 1. Severe sepsis secondary to healthcare-associated pneumonia, possibly gram negative - Improved - Continue Levaquin (day 8 of antibiotics) 2. Severe anemia - Transfused 7 units PRBCs this admission - Likely secondary to sepsis, AML - Iron is normal, TIBC low, iron sat high, ferritin high - LD is high, haptoglobin normal - B12 is normal - Iraj negative - Flow cytometry consistent with AML with 32% blasts - Stool positive for occult blood - Continue Protonix 3. Acute hypoxic respiratory failure secondary to pneumonia, anemia - Improved - Oxygen to maintain saturation > 90% 4. Thrombocytopenia - Likely secondary to sepsis, AML - Transfused 2 units platelets this admission 5. Acute kidney injury secondary to sepsis, hypoperfusion - Improved 6. Stage IV squamous cell lung cancer - Currently being treated with nivolumab 7. Prostate cancer 8. AML - Previously treated with chemotherapy - Patient had been refusing further treatment but now wants to consider treatment, however hematology recommends palliative care - Palliative care evaluation 9. Hypomagnesemia - Continue magnesium supplementation 10. Hypophosphatemia - Improved 11. Hypocalcemia - Corrected calcium is 9.1 12. s/p fall - No injury noted - Continue physical therapy
[2017-04-24] MEDS: oxyCODONE HCL 5 MG TABLET PO PRN (20:24)
--- NOTE | 2017-04-24 21:31 | PN ---
Progress Note (short form) - Note Progress Note: Patient seen and examined. events noted. chart reviewed. O/E: General: Thin in NAD. Heent: No LAD Lungs: Anterior auscultation no crackles heard abdomen: soft, NT ND LE: no CCE Last Vital Signs Temp Pulse Resp BP Pulse Ox 99.1 F 83 18 97/53 96 04/24/17 18:10 04/24/17 18:10 04/24/17 18:10 04/24/17 18:10 04/24/17 20:37 CBC, BMP 04/24/17 06:00 04/24/17 06:00 Current Medications Generic Name Dose Route Start Last Admin Trade Name Freq PRN Reason Stop Dose Admin Allopurinol 100 mg 04/20/17 10:00 04/24/17 09:03 Zyloprim - PO 100 mg DAILY DENISSE Administration Bacitracin/Polymyxin B Sulfate 1 applic 04/24/17 10:00 04/24/17 10:24 Polysporin Ointment - TP 1 applic DAILY DENISSE Administration Levofloxacin 500 mg 04/21/17 08:00 04/24/17 05:58 Levaquin - PO 500 mg DAILY@0600 DENISSE Administration Nystatin 500,000 units 04/20/17 06:00 04/24/17 17:07 Nystatin Oral Suspension - PO 500,000 units Q6HPO DENISSE Administration Oxycodone HCl 5 mg 04/24/17 08:32 04/24/17 20:24 Roxicodone - PO 5 mg Q6H PRN Administration PAIN Pantoprazole Sodium 40 mg 04/20/17 10:00 04/24/17 09:03 Protonix - PO 40 mg DAILY DENISSE Administration Polyethylene Glycol 17 gm 04/20/17 10:00 04/24/17 09:04 Miralax (For Daily Use) - PO 17 grams DAILY DENISSE Administration Potassium Phos/Sodium Phos 1 packet 04/20/17 14:00 04/24/17 21:17 Phos-Nak Packet - PO 1 packet TID DENISSE Administration Tamsulosin HCl 0.4 mg 04/20/17 08:30 04/24/17 08:21 Flomax - PO 0.4 mg DAILY@0830 DENISSE Administration Assessment/Plan: Stage IV Squamous cell lung Ca ( presently on Nivolumab , last dose, early Mar) AML ( diagnosed in 09/2016 ,s/p "7+3" chemo ,no further Rx, pt declined) Declining PS Labile counts from AML -family meeting today -sister present -after discussion, he elected to go to [facility]. Emotional support offered. -
[2017-04-25] MEDS: NYSTATIN 500,000 UNITS/5 ML SUSPENSION PO SCH ×4 (00:10→17:18)
--- NOTE | 2017-04-25 06:37 | PN ---
Physical Exam: SUBJECTIVE: Patient seen and examined at bedside. No new complaints. He endorses poor appetite. OBJECTIVE: Vital Signs Period Temp Pulse Resp BP Sys/Leigh Pulse Ox Last 24 Hr 98.0 F-99.1 F 80-90 18-20 91-103/50-57 96-98 GENERAL: The patient is awake, alert, and fully oriented, in no acute distress. HEAD: Normal with no signs of trauma. EYES: extraocular movements intact, sclera anicteric, conjunctiva clear. No ptosis. NECK: Trachea midline, full range of motion, supple. LUNGS: Breath sounds equal, clear to auscultation bilaterally, no wheezes, no crackles, no accessory muscle use. HEART: Regular rate and rhythm, S1, S2 without murmur, rub or gallop. ABDOMEN: Soft, nontender, nondistended, normoactive bowel sounds, no guarding, no rebound, no hepatosplenomegaly, no masses. EXTREMITIES: 2+ pulses, warm, well-perfused, no edema. NEUROLOGICAL: Cranial nerves II through X grossly intact. Normal speech, gait not observed. PSYCH: Normal mood, normal affect. SKIN: Warm, dry, normal turgor, no rashes or lesions noted Laboratory Results - last 24 hr 04/18/17 04/19/17 04/24/17 06:05 05:10 06:00 WBC 10.7 H RBC 2.05 L 3.01 L Hgb 8.8 L Hct 25.5 L MCV 84.7 MCH 29.1 MCHC 34.4 RDW 15.5 Plt Count 28 L* MPV 7.6 Neutrophils % No Result Required. Lymphocytes % No Result Required. G6PD RBC Count 316 PT with INR INR PTT (Actin FS) Sodium Potassium Chloride Carbon Dioxide Anion Gap BUN Creatinine Random Glucose Calcium Magnesium Albumin Beta-(1,3)-D-Glucan 44 04/24/17 04/24/17 06:00 06:00 WBC RBC Hgb Hct MCV MCH MCHC RDW Plt Count MPV Neutrophils % Lymphocytes % G6PD RBC Count PT with INR 17.00 H INR 1.53 H PTT (Actin FS) 32.6 Sodium 137 Potassium 4.3 Chloride 101 Carbon Dioxide 28 Anion Gap 8 BUN 15 D Creatinine 0.8 D Random Glucose 100 Calcium 7.8 L Magnesium 1.4 L Albumin 2.4 L Beta-(1,3)-D-Glucan Active Medications Generic Name Dose Route Start Last Admin Trade Name Freq PRN Reason Stop Dose Admin Allopurinol 100 mg 04/20/17 10:00 04/24/17 09:03 Zyloprim - PO 100 mg DAILY DENISSE Administration Bacitracin/Polymyxin B Sulfate 1 applic 04/24/17 10:00 04/24/17 10:24 Polysporin Ointment - TP 1 applic DAILY DENISSE Administration Levofloxacin 500 mg 04/21/17 08:00 04/24/17 05:58 Levaquin - PO 500 mg DAILY@0600 DENISSE Administration Nystatin 500,000 units 04/20/17 06:00 04/24/17 17:07 Nystatin Oral Suspension - PO 500,000 units Q6HPO DENISSE Administration Oxycodone HCl 5 mg 04/24/17 08:32 04/24/17 20:24 Roxicodone - PO 5 mg Q6H PRN Administration PAIN Pantoprazole Sodium 40 mg 04/20/17 10:00 04/24/17 09:03 Protonix - PO 40 mg DAILY DENISSE Administration Polyethylene Glycol 17 gm 04/20/17 10:00 04/24/17 09:04 Miralax (For Daily Use) - PO 17 grams DAILY DENISSE Administration Potassium Phos/Sodium Phos 1 packet 04/20/17 14:00 04/24/17 21:17 Phos-Nak Packet - PO 1 packet TID DENISSE Administration Tamsulosin HCl 0.4 mg 04/20/17 08:30 04/24/17 08:21 Flomax - PO 0.4 mg DAILY@0830 DENISSE Administration ASSESSMENT/PLAN: This is a 77 yo M w/ PMH of multiple malignacies who was BIBEMS c/o increased SOB, cough, decreased PO intake and lethargy for 1 week. He was admitted for acute hypoxemic respiratory failure 2/2 severe symptomatic anemia and MELISSA. #Severe symptomatic anemia likely 2/2 malignancy -last Hb 8.1 from 8.8 -s/p total 7u PRBC, 2u Plt this admission -hematology onboard -as per hematology, his aggressive form of AML would not benefit from additional chemotherapy at this time. -as per patient, he would not like any more daily blood draws to monitor his hemoglobin #thrombocytopenia likely 2/2 malignancy -plt now 20 (was 28) -will transfuse platelets as per protocol #leukocytosis likley 2/2 malignancy -22.6 in ED -ID consult -s/p vancomycin, zosyn in ED - WBC 10.3 today #Severe Sepsis likely 2/2 RLL PNA- resolving -CXR showing RLL consolidation/atalectasis -ucx, bcx negative to date -ID consult, will follow reccs -levaquin day 5 #MELISSA likely 2/2 anemia vs severe sepsis vs post renal causes- resolved #Acute hypoxemic respiratory failure likely 2/2 severe symptomatic anemia vs PNA - resolved #lactic acidosis likley 2/2 severe sepsis vs anemia- resolved #FEN -no indication for fluids -electrolytes WNL -soft diet -will add marinol to stimulate appetite #Prophy -SCDs; anticoagulation c/i in setting of possible bleed and anemia -Protonix 40mg PO BID #dispo -admit to med surg -awaiting acceptance to [facility]. -based on patient's current status and prognosis, both pneumovax and flu vaccine would have no benefit Problem List - Problems (1) MELISSA (acute kidney injury) Code(s): N17.9 - ACUTE KIDNEY FAILURE, UNSPECIFIED (2) AML (acute myeloblastic leukemia) Code(s): C92.00 - ACUTE MYELOBLASTIC LEUKEMIA, NOT HAVING ACHIEVED REMISSION (3) Lactic acidosis Code(s): E87.2 - ACIDOSIS (4) Symptomatic anemia Code(s): D64.9 - ANEMIA, UNSPECIFIED (5) Syncope Code(s): R55 - SYNCOPE AND COLLAPSE (6) Lung cancer Code(s): C34.90 - MALIGNANT NEOPLASM OF UNSP PART OF UNSP BRONCHUS OR LUNG Qualifiers: Laterality: unspecified laterality (7) Prostate cancer Code(s): C61 - MALIGNANT NEOPLASM OF PROSTATE Visit type - Emergency Visit Emergency Visit: Yes ED Registration Date: 04/17/17 Care time: The patient presented to the Emergency Department on the above date and was hospitalized for further evaluation of their emergent condition. - New Patient This patient is new to me today: No - Critical Care Critical Care patient: No
[2017-04-25] MEDS: LEVOFLOXACIN 500 MG TABLET (FP) PO SCH (06:40)
[2017-04-25] MEDS: NAPH,MB-DB/K PH,MBDB POWDER PACKET PO SCH ×3 (06:40→21:28)
[2017-04-25 07:12] LABS: MCH 28.6 pg (25.7-33.7); MEAN CELL VOLUME 84.3 fl (80-96); MEAN PLT VOLUME 7.7 fl (7.5-11.1); RDW 15.6 % (11.9-15.9); WHITE BLOOD COUNT 10.3 K/mm3 (4.0-10.0)
[2017-04-25 07:24] LABS: PLATELET COUNT 20 K/MM3 (134-434)
[2017-04-25] MEDS: TAMSULOSIN HCL 0.4 MG CAP.ER.24H (FP) PO SCH (08:00)
[2017-04-25 08:30] LABS: BLAST 15 % (0-0); MYELOCYTE 1 % (0-2); PLATELET ESTIMATE MARKEDLY DECREASED (NORMAL); TOTAL CELLS COUNTED 100
[2017-04-25] MEDS: POLYETHYLENE GLYCOL 3350 119 GM BTL PO SCH (09:35)
[2017-04-25] MEDS: ALLOPURINOL 100 MG TABLET (FP) PO SCH (09:35)
[2017-04-25] MEDS: BACITRACIN/POLYMYXIN B SULFATE 15 GM TUBE TP SCH (09:36)
[2017-04-25] MEDS: PANTOPRAZOLE 40 MG TABLET (FP) PO SCH (09:36)
--- NOTE | 2017-04-25 13:02 | PN ---
Teaching Attending Note Name of Resident: Dale Blas ATTENDING PHYSICIAN STATEMENT I saw and evaluated the patient. I reviewed the resident's note and discussed the case with the resident. I agree with the resident's findings and plan as documented. SUBJECTIVE:continues to have some right sided chest discomfort which improves with pain medication. expressed frustration with poor appetite. denies CP, SOB, fever, chills, N/V/C/D OBJECTIVE: Last Vital Signs Temp Pulse Resp BP Pulse Ox 98.0 F 89 20 88/41 98 04/25/17 09:00 04/25/17 09:00 04/25/17 09:00 04/25/17 09:00 04/25/17 09:00 General NAD, thin, cachectic, pronounced collar bone, temporal wasting CV S1 S2 RRR no murmur/rub/gallop, Lungs CTA B/L no wheezing/rales/rhonchi ASSESSMENT AND PLAN: 77yo M with PMH AML, lung cancer, prostate cancer who presented to the ER with weakness, SOB. 1. Severe sepsis secondary to healthcare-associated pneumonia, possibly gram negative- clinically improved. saturating well on RA. on levaquin day 9. ID and pulmonary on board. 2. Severe symptomatic anemia- likley due to sepsis and AML. Transfused 7 units PRBCs this admission. anemia of chronic disease. Hgb stable. no indication for txn. hematology on board. 3. Acute hypoxic respiratory failure secondary to pneumonia, anemia. resolved. supplemental oxygen as needed to maintain spO2 >90% 4. Thrombocytopenia- Likely secondary to sepsis, AML. Transfused 2 units platelets this admission 5. Acute kidney injury secondary to sepsis, hypoperfusion- resolved 6. AML- recently diagnosed earlier this year, lengthy family conversation yesterday with oncology and palliative care. pt is no longer a candidate for chemotherapy. pt and family agreed with transfer to [place] for palliative care. 7. Anorexia- likely due to malignancy. start marinol to increase appetite. 8. Mechanical fall- yesterday while in the bathroom. sustained abrasion to his back. lumbar spine XR done. negative for acute fx or subluxation. degenerative changes present. no further workup at this time. cont PT. 9. Stage IV squamous cell lung cancer 10. Prostate cancer 11. Hypomagnesemia- resolved 12. Hypophosphatemia- resolved 13. Hypocalcemia- Corrected calcium is 9.1 14. awaiting acceptance to [facility].
[2017-04-25] MEDS: DRONABINOL 5 MG CAPSULE PO SCH (13:27)
[2017-04-25] MEDS: ACETAMINOPHEN 325 MG TABLET (FP) PO PRN (17:18)
[2017-04-26] MEDS: NYSTATIN 500,000 UNITS/5 ML SUSPENSION PO SCH ×4 (01:13→18:53)
[2017-04-26] MEDS: NAPH,MB-DB/K PH,MBDB POWDER PACKET PO SCH (06:09)
[2017-04-26] MEDS: LEVOFLOXACIN 500 MG TABLET (FP) PO SCH (06:09)
--- NOTE | 2017-04-26 09:00 | PN ---
Physical Exam: SUBJECTIVE: Patient seen and examined at bedside. Patient feels well. No new complaints. OBJECTIVE: Vital Signs Period Temp Pulse Resp BP Sys/Leigh Pulse Ox Last 24 Hr 98.0 F-100.0 F 82-93 18-20 88-100/41-51 98 GENERAL: The patient is awake, alert, and fully oriented, in no acute distress. HEAD: Normal with no signs of trauma. EYES: extraocular movements intact, sclera anicteric, conjunctiva clear. No ptosis. NECK: Trachea midline, full range of motion, supple. LUNGS: Breath sounds equal, clear to auscultation bilaterally, no wheezes, no crackles, no accessory muscle use. HEART: Regular rate and rhythm, S1, S2 without murmur, rub or gallop. ABDOMEN: Soft, nontender, nondistended, normoactive bowel sounds, no guarding, no rebound, no hepatosplenomegaly, no masses. EXTREMITIES: 2+ pulses, warm, well-perfused, no edema. NEUROLOGICAL: Cranial nerves II through X grossly intact. Normal speech, gait not observed. PSYCH: Normal mood, normal affect. SKIN: Warm, dry, normal turgor, no rashes or lesions noted Laboratory Results - last 24 hr 04/22/17 08:25 Blood Type B POSITIVE Antibody Screen Negative Crossmatch See Detail Active Medications Generic Name Dose Route Start Last Admin Trade Name Freq PRN Reason Stop Dose Admin Acetaminophen 650 mg 04/25/17 16:50 04/25/17 17:18 Tylenol - PO 650 mg Q6H PRN Administration FEVER OR PAIN Allopurinol 100 mg 04/20/17 10:00 04/25/17 09:35 Zyloprim - PO 100 mg DAILY DENISSE Administration Bacitracin/Polymyxin B Sulfate 1 applic 04/24/17 10:00 04/25/17 09:36 Polysporin Ointment - TP 1 applic DAILY DENISSE Administration Dronabinol 5 mg 04/25/17 12:00 04/25/17 13:27 Marinol - PO 5 mg DAILY DENISSE Administration Levofloxacin 500 mg 04/21/17 08:00 04/26/17 06:09 Levaquin - PO 500 mg DAILY@0600 DENISSE Administration Nystatin 500,000 units 04/20/17 06:00 04/26/17 06:09 Nystatin Oral Suspension - PO 500,000 units Q6HPO DENISSE Administration Oxycodone HCl 5 mg 04/24/17 08:32 04/24/17 20:24 Roxicodone - PO 5 mg Q6H PRN Administration PAIN Pantoprazole Sodium 40 mg 04/20/17 10:00 04/25/17 09:36 Protonix - PO 40 mg DAILY DENISSE Administration Polyethylene Glycol 17 gm 04/20/17 10:00 04/25/17 09:35 Miralax (For Daily Use) - PO 17 grams DAILY DENISSE Administration Potassium Phos/Sodium Phos 1 packet 04/20/17 14:00 04/26/17 06:09 Phos-Nak Packet - PO 1 packet TID DENISSE Administration Tamsulosin HCl 0.4 mg 04/20/17 08:30 04/25/17 08:00 Flomax - PO 0.4 mg DAILY@0830 DENISSE Administration ASSESSMENT/PLAN: This is a 77 yo M w/ PMH of multiple malignacies who was BIBEMS c/o increased SOB, cough, decreased PO intake and lethargy for 1 week. He was admitted for acute hypoxemic respiratory failure 2/2 severe symptomatic anemia and MELISSA. 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 -as per patient, he would not like any more daily blood draws to monitor his hemoglobin #thrombocytopenia likely 2/2 malignancy -will transfuse platelets as per protocol #leukocytosis likley 2/2 malignancy -22.6 in ED -ID onboard #Severe Sepsis likely 2/2 RLL PNA- resolving -CXR showing RLL consolidation/atalectasis -ucx, bcx negative to date -ID consult, will follow reccs -levaquin day 6 #MELISSA likely 2/2 anemia vs severe sepsis vs post renal causes- resolved #Acute hypoxemic respiratory failure likely 2/2 severe symptomatic anemia vs PNA - resolved #lactic acidosis likley 2/2 severe sepsis vs anemia- resolved #FEN -no indication for fluids -electrolytes WNL -soft diet -add marinol to stimulate appetite #Prophy -SCDs; anticoagulation c/i in setting of possible bleed and anemia -Protonix 40mg PO BID #dispo -admit to med surg -awaiting acceptance to [facility]. -based on patient's current status and prognosis, both pneumovax and flu vaccine would have no benefit Problem List - Problems (1) MELISSA (acute kidney injury) Code(s): N17.9 - ACUTE KIDNEY FAILURE, UNSPECIFIED (2) AML (acute myeloblastic leukemia) Code(s): C92.00 - ACUTE MYELOBLASTIC LEUKEMIA, NOT HAVING ACHIEVED REMISSION (3) Lactic acidosis Code(s): E87.2 - ACIDOSIS (4) Symptomatic anemia Code(s): D64.9 - ANEMIA, UNSPECIFIED (5) Syncope Code(s): R55 - SYNCOPE AND COLLAPSE (6) Lung cancer Code(s): C34.90 - MALIGNANT NEOPLASM OF UNSP PART OF UNSP BRONCHUS OR LUNG Qualifiers: Laterality: unspecified laterality (7) Prostate cancer Code(s): C61 - MALIGNANT NEOPLASM OF PROSTATE Visit type - Emergency Visit Emergency Visit: Yes ED Registration Date: 04/17/17 Care time: The patient presented to the Emergency Department on the above date and was hospitalized for further evaluation of their emergent condition. - New Patient This patient is new to me today: No - Critical Care Critical Care patient: No
[2017-04-26] MEDS ORDERED: PT OWN MED DRAWER 7, Y5N ONE (10:24)
[2017-04-26] MEDS: DRONABINOL 5 MG CAPSULE PO SCH (10:29)
[2017-04-26] MEDS: BACITRACIN/POLYMYXIN B SULFATE 15 GM TUBE TP SCH (10:30)
[2017-04-26] MEDS: PANTOPRAZOLE 40 MG TABLET (FP) PO SCH (10:30)
[2017-04-26] MEDS: ALLOPURINOL 100 MG TABLET (FP) PO SCH (10:30)
[2017-04-26] MEDS: TAMSULOSIN HCL 0.4 MG CAP.ER.24H (FP) PO SCH (10:30)
[2017-04-26] MEDS: POLYETHYLENE GLYCOL 3350 119 GM BTL PO SCH (10:34)
--- NOTE | 2017-04-26 12:59 | PN ---
Progress Note (short form) - Note Progress Note: Patient seen and examined. events noted. chart reviewed. O/E: General: Thin in NAD. Heent: No LAD Lungs: CTA b/l abdomen: soft, NT ND LE: no CCE Current Medications Generic Name Dose Route Start Last Admin Trade Name Freq PRN Reason Stop Dose Admin Acetaminophen 650 mg 04/25/17 16:50 04/25/17 17:18 Tylenol - PO 650 mg Q6H PRN Administration FEVER OR PAIN Allopurinol 100 mg 04/20/17 10:00 04/26/17 10:30 Zyloprim - PO 100 mg DAILY DENISSE Administration Bacitracin/Polymyxin B Sulfate 1 applic 04/24/17 10:00 04/26/17 10:30 Polysporin Ointment - TP 1 applic DAILY DENISSE Administration Dronabinol 5 mg 04/25/17 12:00 04/26/17 10:29 Marinol - PO 5 mg DAILY DENISSE Administration Levofloxacin 500 mg 04/21/17 08:00 04/26/17 06:09 Levaquin - PO 500 mg DAILY@0600 DENISSE Administration Nystatin 500,000 units 04/20/17 06:00 04/26/17 06:09 Nystatin Oral Suspension - PO 500,000 units Q6HPO DENISSE Administration Oxycodone HCl 5 mg 04/24/17 08:32 04/24/17 20:24 Roxicodone - PO 5 mg Q6H PRN Administration PAIN Pantoprazole Sodium 40 mg 04/20/17 10:00 04/26/17 10:30 Protonix - PO 40 mg DAILY DENISSE Administration Polyethylene Glycol 17 gm 04/20/17 10:00 04/26/17 10:34 Miralax (For Daily Use) - PO 17 grams DAILY DENISSE Administration Potassium Phos/Sodium Phos 1 packet 04/20/17 14:00 04/26/17 06:09 Phos-Nak Packet - PO 1 packet TID DENISSE Administration Tamsulosin HCl 0.4 mg 04/20/17 08:30 04/26/17 10:30 Flomax - PO 0.4 mg DAILY@0830 DENISSE Administration Assessment/Plan: [place] was planned after family meeting the day before for who had a declining PS in the setting of Stage iv Squamous cell lung and also progressing AML emotional support offered encourage PO intake. -
--- NOTE | 2017-04-26 13:43 | PN ---
Teaching Attending Note Name of Resident: Dale Blas ATTENDING PHYSICIAN STATEMENT I saw and evaluated the patient. I reviewed the resident's note and discussed the case with the resident. I agree with the resident's findings and plan as documented. SUBJECTIVE:overall spirits are up but continues to have poor appetite. denies CP , SOB, fever, chills OBJECTIVE: Last Vital Signs Temp Pulse Resp BP Pulse Ox 98 F 82 18 107/55 98 04/26/17 10:15 04/26/17 10:15 04/26/17 10:15 04/26/17 10:15 04/26/17 09:00 General NAD, cachectic ASSESSMENT AND PLAN: 77yo M with PMH AML, lung cancer, prostate cancer who presented to the ER with weakness, SOB. 1. Severe Malnutrition- started on marinol. encouraged po intake. 2. 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 palliative care at this time. accepted to [facility]. awaiting bed availability 3. evere sepsis secondary to healthcare-associated pneumonia, possibly gram negative- clinically improved. saturating well on RA. on levaquin day 10. will d /c abx after today. ID and pulmonary on board. 4. Palliative care. awaiting bed at [place]
[2017-04-26] MEDS: ACETAMINOPHEN 325 MG TABLET (FP) PO PRN (22:41)
[2017-04-27] MEDS: NYSTATIN 500,000 UNITS/5 ML SUSPENSION PO SCH ×4 (01:57→17:40)
[2017-04-27] MEDS: LEVOFLOXACIN 500 MG TABLET (FP) PO SCH (05:40)
[2017-04-27 08:08] LABS: MCH 28.8 pg (25.7-33.7); MCHC 33.7 g/dl (32.0-35.9); MEAN CELL VOLUME 85.5 fl (80-96); MEAN PLT VOLUME 8.5 fl (7.5-11.1); RDW 16.1 % (11.9-15.9); WHITE BLOOD COUNT 12.5 K/mm3 (4.0-10.0)
[2017-04-27 08:10] LABS: PLATELET COUNT 12 K/MM3 (134-434)
[2017-04-27] MEDS: TAMSULOSIN HCL 0.4 MG CAP.ER.24H (FP) PO SCH (08:37)
[2017-04-27] MEDS: POLYETHYLENE GLYCOL 3350 119 GM BTL PO SCH (10:02)
[2017-04-27] MEDS: ALLOPURINOL 100 MG TABLET (FP) PO SCH (10:02)
[2017-04-27] MEDS: PANTOPRAZOLE 40 MG TABLET (FP) PO SCH (10:02)
[2017-04-27] MEDS: BACITRACIN/POLYMYXIN B SULFATE 15 GM TUBE TP SCH (10:02)
[2017-04-27] MEDS: DRONABINOL 5 MG CAPSULE PO SCH (10:02)
[2017-04-27] MEDS ORDERED: SODIUM CHLORIDE 1,000 ML IV STA (11:06)
[2017-04-27] MEDS ORDERED: BISACODYL 5 MG TABLET.DR (FP) PO ONE (11:10)
--- NOTE | 2017-04-27 12:43 | PN ---
Teaching Attending Note Name of Resident: Dale Blas ATTENDING PHYSICIAN STATEMENT I saw and evaluated the patient. I reviewed the resident's note and discussed the case with the resident. I agree with the resident's findings and plan as documented. SUBJECTIVE:c/o dizzyness and generalized weakness. states appetite has not yet improved. denies CP, SOB, fever, chills, N/V/C/D, hematuria. no BM in 3 days OBJECTIVE: Last Vital Signs Temp Pulse Resp BP Pulse Ox 98.2 F 90 20 105/50 98 04/27/17 09:00 04/27/17 09:00 04/27/17 09:00 04/27/17 09:00 04/27/17 09:00 General NAD, cachectic ASSESSMENT AND PLAN: 77yo M with PMH AML, lung cancer, prostate cancer who presented to the ER with weakness, SOB. 1. Severe Malnutrition- started on marinol. encouraged po intake. 2. Hypotension- symptomatic. will give 1L NS and gentle hydration as pt has poor po intake. 3. Constipation- stool softeners 4. Pancyctopenia- labs checked at pts request. will d/w oncology about transfusing plt at this time as he is at high risk of spontaneous bleeding. d/w pt about not checking labs would not be beneficial as will only cause more pain as we are unlikely to act upon the results. acknowledged and agreed with no more labs at this time. 2. 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 palliative care at this time. accepted to [facility]. awaiting bed availability 3. Severe sepsis secondary to healthcare-associated pneumonia, possibly gram negative- clinically improved. saturating well on RA. completed 10 day course of abx. ID and pulmonary on board. 4. Palliative care. awaiting bed at [place]
--- NOTE | 2017-04-27 13:27 | PN ---
Physical Exam: SUBJECTIVE: Patient seen and examined at bedside. No new complaints. After having conversation with the patient regarding the utility of blood draws, he again expresses wishes that we do NOT draw blood. OBJECTIVE: Vital Signs Period Temp Pulse Resp BP Sys/Leigh Pulse Ox Last 24 Hr 98.2 F-99.4 F 81-90 18-20 84-105/41-50 98 GENERAL: The patient is awake, alert, and fully oriented, in no acute distress. HEAD: Normal with no signs of trauma. EYES: extraocular movements intact, sclera anicteric, conjunctiva clear. No ptosis. NECK: Trachea midline, full range of motion, supple. LUNGS: Breath sounds equal, clear to auscultation bilaterally, no wheezes, no crackles, no accessory muscle use. HEART: Regular rate and rhythm, S1, S2 without murmur, rub or gallop. ABDOMEN: Soft, nontender, nondistended, normoactive bowel sounds, no guarding, no rebound, no hepatosplenomegaly, no masses. EXTREMITIES: 2+ pulses, warm, well-perfused, no edema. NEUROLOGICAL: Cranial nerves II through X grossly intact. Normal speech, gait not observed. PSYCH: Normal mood, normal affect. SKIN: Warm, dry, normal turgor, no rashes or lesions noted Laboratory Results - last 24 hr 04/27/17 06:30 WBC 12.5 H RBC 2.70 L Hgb 7.8 L Hct 23.1 L MCV 85.5 MCH 28.8 MCHC 33.7 RDW 16.1 H Plt Count 12 L* D MPV 8.5 D Active Medications Generic Name Dose Route Start Last Admin Trade Name Gurdeep PRN Reason Stop Dose Admin Acetaminophen 650 mg 04/25/17 16:50 04/26/17 22:41 Tylenol - PO 650 mg Q6H PRN Administration FEVER OR PAIN Allopurinol 100 mg 04/20/17 10:00 04/27/17 10:02 Zyloprim - PO 100 mg DAILY DENISSE Administration Bacitracin/Polymyxin B Sulfate 1 applic 04/24/17 10:00 04/27/17 10:02 Polysporin Ointment - TP 1 applic DAILY DENISSE Administration Dronabinol 5 mg 04/25/17 12:00 04/27/17 10:02 Marinol - PO 5 mg DAILY DENISSE Administration Nystatin 500,000 units 04/20/17 06:00 04/27/17 12:04 Nystatin Oral Suspension - PO Not Given Q6HPO DENISSE Oxycodone HCl 5 mg 04/24/17 08:32 04/24/17 20:24 Roxicodone - PO 5 mg Q6H PRN Administration PAIN Pantoprazole Sodium 40 mg 04/20/17 10:00 04/27/17 10:02 Protonix - PO 40 mg DAILY DENISSE Administration Polyethylene Glycol 17 gm 04/20/17 10:00 04/27/17 10:02 Miralax (For Daily Use) - PO 17 grams DAILY DENISSE Administration Tamsulosin HCl 0.4 mg 04/20/17 08:30 04/27/17 08:37 Flomax - PO 0.4 mg DAILY@0830 DENSISE Administration ASSESSMENT/PLAN: This is a 77 yo M w/ PMH of multiple malignacies who was BIBEMS c/o increased SOB, cough, decreased PO intake and lethargy for 1 week. He was admitted for acute hypoxemic respiratory failure 2/2 severe symptomatic anemia and MELISSA. 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 -as per patient, he would not like any more daily blood draws to monitor his hemoglobin -CBC today (performed at patient's request) shows Hb continuing to drop -will transfuse 1 unit PRBC today #thrombocytopenia likely 2/2 malignancy -will transfuse platelets as per protocol -platelets 12 today; will transfuse 1 unit of platelets #leukocytosis likley 2/2 malignancy -22.6 in ED -ID onboard #Severe Sepsis likely 2/2 RLL PNA- resolving -CXR showing RLL consolidation/atalectasis -ucx, bcx negative to date -ID consult, will follow reccs -levaquin day 7 #MELISSA likely 2/2 anemia vs severe sepsis vs post renal causes- resolved #Acute hypoxemic respiratory failure likely 2/2 severe symptomatic anemia vs PNA - resolved #lactic acidosis likley 2/2 severe sepsis vs anemia- resolved #FEN -1L bolus, then NS at 42 -electrolytes WNL -soft diet -added marinol to stimulate appetite #Prophy -SCDs; anticoagulation c/i in setting of possible bleed and anemia -Protonix 40mg PO BID #dispo -admit to med surg -awaiting open bed at [facility]. -based on patient's current status and prognosis, both pneumovax and flu vaccine would have no benefit Problem List - Problems (1) MELISSA (acute kidney injury) Code(s): N17.9 - ACUTE KIDNEY FAILURE, UNSPECIFIED (2) AML (acute myeloblastic leukemia) Code(s): C92.00 - ACUTE MYELOBLASTIC LEUKEMIA, NOT HAVING ACHIEVED REMISSION (3) Lactic acidosis Code(s): E87.2 - ACIDOSIS (4) Symptomatic anemia Code(s): D64.9 - ANEMIA, UNSPECIFIED (5) Syncope Code(s): R55 - SYNCOPE AND COLLAPSE (6) Lung cancer Code(s): C34.90 - MALIGNANT NEOPLASM OF UNSP PART OF UNSP BRONCHUS OR LUNG (7) Prostate cancer Code(s): C61 - MALIGNANT NEOPLASM OF PROSTATE Visit type - Emergency Visit Emergency Visit: Yes ED Registration Date: 04/17/17 Care time: The patient presented to the Emergency Department on the above date and was hospitalized for further evaluation of their emergent condition. - New Patient This patient is new to me today: No - Critical Care Critical Care patient: No
--- NOTE | 2017-04-27 17:12 | PN ---
Progress Note (short form) - Note Progress Note: Patient seen and examined. O/E: General: Thin in NAD. Heent: No LAD Lungs: CTA b/l abdomen: soft, NT ND LE: no CCE Current Medications Generic Name Dose Route Start Last Admin Trade Name Freq PRN Reason Stop Dose Admin Acetaminophen 650 mg 04/25/17 16:50 04/26/17 22:41 Tylenol - PO 650 mg Q6H PRN Administration FEVER OR PAIN Allopurinol 100 mg 04/20/17 10:00 04/27/17 10:02 Zyloprim - PO 100 mg DAILY DENISSE Administration Bacitracin/Polymyxin B Sulfate 1 applic 04/24/17 10:00 04/27/17 10:02 Polysporin Ointment - TP 1 applic DAILY DENISSE Administration Dronabinol 5 mg 04/25/17 12:00 04/27/17 10:02 Marinol - PO 5 mg DAILY DENISSE Administration Nystatin 500,000 units 04/20/17 06:00 04/27/17 12:04 Nystatin Oral Suspension - PO Not Given Q6HPO DENISSE Oxycodone HCl 5 mg 04/24/17 08:32 04/24/17 20:24 Roxicodone - PO 5 mg Q6H PRN Administration PAIN Pantoprazole Sodium 40 mg 04/20/17 10:00 04/27/17 10:02 Protonix - PO 40 mg DAILY DENISSE Administration Polyethylene Glycol 17 gm 04/20/17 10:00 04/27/17 10:02 Miralax (For Daily Use) - PO 17 grams DAILY DENISSE Administration Tamsulosin HCl 0.4 mg 04/20/17 08:30 04/27/17 08:37 Flomax - PO 0.4 mg DAILY@0830 DENISSE Administration Last Vital Signs Temp Pulse Resp BP Pulse Ox 99.1 F 93 H 20 95/41 98 04/27/17 14:45 04/27/17 14:45 04/27/17 14:45 04/27/17 14:45 04/27/17 09:00 Assessment/Plan: [place] was planned after family meeting the day before for who had a declining PS in the setting of Stage iv Squamous cell lung and also progressing AML -awaiting [facility] bed -today's blood work , one unti prbc and one unit platelets to be given ,d/w pt. -d/w RN and d/w
[2017-04-27] MEDS: oxyCODONE HCL 5 MG TABLET PO PRN (20:58)
[2017-04-27] MEDS: ACETAMINOPHEN 325 MG TABLET (FP) PO PRN (20:59)
[2017-04-28] MEDS: NYSTATIN 500,000 UNITS/5 ML SUSPENSION PO SCH ×5 (00:17→23:49)
--- NOTE | 2017-04-28 09:37 | PN ---
Progress Note (short form) - Note Progress Note: states he is no longer feeling dizzy. unsure if it was after IVF or blood products. continues to have poor appetite. darryl Cp, SOB, fver, chills, Current Medications Generic Name Dose Route Start Last Admin Trade Name Freq PRN Reason Stop Dose Admin Acetaminophen 650 mg 04/25/17 16:50 04/27/17 20:59 Tylenol - PO 650 mg Q6H PRN Administration FEVER OR PAIN Allopurinol 100 mg 04/20/17 10:00 04/27/17 10:02 Zyloprim - PO 100 mg DAILY DENISSE Administration Bacitracin/Polymyxin B Sulfate 1 applic 04/24/17 10:00 04/27/17 10:02 Polysporin Ointment - TP 1 applic DAILY DENISSE Administration Dronabinol 5 mg 04/25/17 12:00 04/27/17 10:02 Marinol - PO 5 mg DAILY DENISSE Administration Nystatin 500,000 units 04/20/17 06:00 04/28/17 05:00 Nystatin Oral Suspension - PO Not Given Q6HPO DENISSE Oxycodone HCl 5 mg 04/24/17 08:32 04/27/17 20:58 Roxicodone - PO 5 mg Q6H PRN Administration PAIN Pantoprazole Sodium 40 mg 04/20/17 10:00 04/27/17 10:02 Protonix - PO 40 mg DAILY DENISSE Administration Polyethylene Glycol 17 gm 04/20/17 10:00 04/27/17 10:02 Miralax (For Daily Use) - PO 17 grams DAILY DENISSE Administration Tamsulosin HCl 0.4 mg 04/20/17 08:30 04/27/17 08:37 Flomax - PO 0.4 mg DAILY@0830 DENISSE Administration Last Vital Signs Temp Pulse Resp BP Pulse Ox 98 F 82 18 105/52 98 04/28/17 04:31 04/28/17 04:31 04/28/17 04:31 04/28/17 04:31 04/27/17 21:00 refused physical exam General NAD, cachectic ASSESSMENT AND PLAN: 77yo M with PMH AML, lung cancer, prostate cancer who presented to the ER with weakness, SOB. 1. Severe Malnutrition- started on marinol. encouraged po intake. will consider switching to megace if no improvement by sunday 2. Hypotension- resolved with IVF. continue gentle hydration 3. Constipation- stool softeners 4. Pancyctopenia-s/p 1 unit PRBC and platlet. will not repeat labs at this time going forward, unless develops symptoms. pt agrees. 2. 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 palliative care at this time. accepted to [facility]. awaiting bed availability 3. Severe sepsis secondary to healthcare-associated pneumonia, possibly gram negative- clinically improved. saturating well on RA. completed 10 day course of abx. ID and pulmonary on board. 4. Palliative care. awaiting bed at [place] Visit type - Emergency Visit Emergency Visit: Yes ED Registration Date: 04/17/17 Care time: The patient presented to the Emergency Department on the above date and was hospitalized for further evaluation of their emergent condition. - New Patient This patient is new to me today: No - Critical Care Critical Care patient: No - Discharge Referral Referred to [facility] Med P.C.: No
[2017-04-28] MEDS ORDERED: PT OWN MED DRAWER 7, Y5N ONE (10:42)
[2017-04-28] MEDS: TAMSULOSIN HCL 0.4 MG CAP.ER.24H (FP) PO SCH (10:45)
[2017-04-28] MEDS: PANTOPRAZOLE 40 MG TABLET (FP) PO SCH (10:45)
[2017-04-28] MEDS: DRONABINOL 5 MG CAPSULE PO SCH (10:45)
[2017-04-28] MEDS: BACITRACIN/POLYMYXIN B SULFATE 15 GM TUBE TP SCH (10:45)
[2017-04-28] MEDS: ALLOPURINOL 100 MG TABLET (FP) PO SCH (10:45)
[2017-04-28] MEDS: POLYETHYLENE GLYCOL 3350 119 GM BTL PO SCH (10:46)
[2017-04-28] MEDS: ACETAMINOPHEN 325 MG TABLET (FP) PO PRN (20:44)
[2017-04-29] MEDS: NYSTATIN 500,000 UNITS/5 ML SUSPENSION PO SCH ×3 (07:02→17:26)
[2017-04-29] MEDS ORDERED: PT OWN MED DRAWER 7, Y5N ONE (09:28)
[2017-04-29] MEDS: POLYETHYLENE GLYCOL 3350 119 GM BTL PO SCH (09:57)
[2017-04-29] MEDS: PANTOPRAZOLE 40 MG TABLET (FP) PO SCH (09:57)
[2017-04-29] MEDS: ALLOPURINOL 100 MG TABLET (FP) PO SCH (09:57)
[2017-04-29] MEDS: DRONABINOL 5 MG CAPSULE PO SCH ×3 (09:57→16:51)
[2017-04-29] MEDS: TAMSULOSIN HCL 0.4 MG CAP.ER.24H (FP) PO SCH (09:57)
[2017-04-29] MEDS: BACITRACIN/POLYMYXIN B SULFATE 15 GM TUBE TP SCH ×2 (09:58→13:11)
--- NOTE | 2017-04-29 10:33 | PN ---
Progress Note (short form) - Note Progress Note: c/o no BM in 6 days. appetite modest improvement. darryl Cp, SOB, fever, chills, Current Medications Generic Name Dose Route Start Last Admin Trade Name Freq PRN Reason Stop Dose Admin Acetaminophen 650 mg 04/25/17 16:50 04/28/17 20:44 Tylenol - PO 650 mg Q6H PRN Administration FEVER OR PAIN Allopurinol 100 mg 04/20/17 10:00 04/29/17 09:57 Zyloprim - PO 100 mg DAILY DENISSE Administration Bacitracin/Polymyxin B Sulfate 1 applic 04/24/17 10:00 04/29/17 09:58 Polysporin Ointment - TP Not Given DAILY DENISSE Dronabinol 5 mg 04/25/17 12:00 04/29/17 09:57 Marinol - PO 5 mg DAILY DENISSE Administration Nystatin 500,000 units 04/20/17 06:00 04/29/17 07:02 Nystatin Oral Suspension - PO Not Given Q6HPO DENISSE Oxycodone HCl 5 mg 04/24/17 08:32 04/27/17 20:58 Roxicodone - PO 5 mg Q6H PRN Administration PAIN Pantoprazole Sodium 40 mg 04/20/17 10:00 04/29/17 09:57 Protonix - PO 40 mg DAILY DENISSE Administration Polyethylene Glycol 17 gm 04/20/17 10:00 04/29/17 09:57 Miralax (For Daily Use) - PO 17 grams DAILY DENISSE Administration Tamsulosin HCl 0.4 mg 04/20/17 08:30 04/29/17 09:57 Flomax - PO 0.4 mg DAILY@0830 DENISSE Administration Last Vital Signs Temp Pulse Resp BP Pulse Ox 98.4 F 87 18 102/50 95 04/29/17 05:00 04/29/17 10:02 04/29/17 10:02 04/29/17 10:02 04/28/17 21:00 Refused physical exam General NAD, cachectic ASSESSMENT AND PLAN: 77yo M with PMH AML, lung cancer, prostate cancer who presented to the ER with weakness, SOB. 1. Severe Malnutrition- started on marinol with minimal improvement. will increase to 5mg BID. encouraged po intake. 2. Hypotension- resolved with IVF. continue gentle hydration 3. Constipation-no BM x6 days.likely component of decreased intake. will give enema 4. Pancyctopenia-s/p 1 unit PRBC and platlet. will not repeat labs at this time going forward, unless develops symptoms. pt agrees. 2. 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 palliative care at this time. accepted to [facility]. awaiting bed availability 3. Severe sepsis secondary to healthcare-associated pneumonia, possibly gram negative- clinically improved. saturating well on RA. completed 10 day course of abx. ID and pulmonary on board. 4. Palliative care. awaiting bed at [place] Visit type - Emergency Visit Emergency Visit: Yes ED Registration Date: 04/17/17 Care time: The patient presented to the Emergency Department on the above date and was hospitalized for further evaluation of their emergent condition. - New Patient This patient is new to me today: No - Critical Care Critical Care patient: No - Discharge Referral Referred to [facility] Med P.C.: No
[2017-04-29] MEDS ORDERED: SODIUM PHOSPHATE/NA BIPHOS 133 ML ENEMA PR ONE (10:35)
[2017-04-29] MEDS ORDERED: guaiFENesin 200 MG/10 ML 10 ML UNIT-DOSE CUPS PO PRN (16:58)
[2017-04-29] MEDS: ACETAMINOPHEN 325 MG TABLET (FP) PO PRN (17:28)
[2017-04-30] MEDS: NYSTATIN 500,000 UNITS/5 ML SUSPENSION PO SCH ×4 (00:53→17:28)
[2017-04-30] MEDS: ACETAMINOPHEN 325 MG TABLET (FP) PO PRN ×2 (01:14→20:14)
--- NOTE | 2017-04-30 06:30 | PN ---
Physical Exam: SUBJECTIVE: Patient seen and examined at bedside. No new complaints. Patient spiked fever to 100.8 overnight. OBJECTIVE: Vital Signs Period Temp Pulse Resp BP Sys/Leigh Pulse Ox Last 24 Hr 98.3 F-100.8 F 76-99 18-20 92-102/47-50 92-95 GENERAL: The patient is awake, alert, and fully oriented, in no acute distress. HEAD: Normal with no signs of trauma. EYES: extraocular movements intact, sclera anicteric, conjunctiva clear. No ptosis. NECK: Trachea midline, full range of motion, supple. LUNGS: Breath sounds equal, clear to auscultation bilaterally, no wheezes, no crackles, no accessory muscle use. HEART: Regular rate and rhythm, S1, S2 without murmur, rub or gallop. ABDOMEN: Soft, nontender, nondistended, normoactive bowel sounds, no guarding, no rebound, no hepatosplenomegaly, no masses. EXTREMITIES: 2+ pulses, warm, well-perfused, no edema. NEUROLOGICAL: Cranial nerves II through X grossly intact. Normal speech, gait not observed. PSYCH: Normal mood, normal affect. SKIN: Warm, dry, normal turgor, no rashes or lesions noted Active Medications Generic Name Dose Route Start Last Admin Trade Name Freq PRN Reason Stop Dose Admin Acetaminophen 650 mg 04/25/17 16:50 04/30/17 01:14 Tylenol - PO 650 mg Q6H PRN Administration FEVER OR PAIN Allopurinol 100 mg 04/20/17 10:00 04/29/17 09:57 Zyloprim - PO 100 mg DAILY DENISSE Administration Bacitracin/Polymyxin B Sulfate 1 applic 04/24/17 10:00 04/29/17 13:11 Polysporin Ointment - TP 1 applic DAILY DENISSE Administration Dronabinol 5 mg 04/29/17 11:30 04/29/17 16:51 Marinol - PO Not Given ACLD DENISSE Guaifenesin 10 ml 04/29/17 16:58 Robitussin - PO Q4H PRN COUGH Nystatin 500,000 units 04/20/17 06:00 04/30/17 00:53 Nystatin Oral Suspension - PO Not Given Q6HPO DENISSE Oxycodone HCl 5 mg 04/24/17 08:32 04/27/17 20:58 Roxicodone - PO 5 mg Q6H PRN Administration PAIN Pantoprazole Sodium 40 mg 04/20/17 10:00 04/29/17 09:57 Protonix - PO 40 mg DAILY DENISSE Administration Polyethylene Glycol 17 gm 04/20/17 10:00 04/29/17 09:57 Miralax (For Daily Use) - PO 17 grams DAILY DENISSE Administration Tamsulosin HCl 0.4 mg 04/20/17 08:30 04/29/17 09:57 Flomax - PO 0.4 mg DAILY@0830 DENISSE Administration ASSESSMENT/PLAN: This is a 77 yo M w/ PMH of multiple malignacies who was BIBEMS c/o increased SOB, cough, decreased PO intake and lethargy for 1 week. He was admitted for acute hypoxemic respiratory failure 2/2 severe symptomatic anemia and MELISSA. #Hypotension 2/2 dropping blood counts and lack of PO intake -patient's appetite improving on marinol 5mg ACLD #Severe symptomatic anemia likely 2/2 malignancy -s/p total 8u PRBC, 3u Plt this admission -as per patient, he would not like any more daily blood draws #thrombocytopenia likely 2/2 malignancy -as per patient, he would not like any more daily blood draws #leukocytosis likley 2/2 malignancy -as per patient, he would not like any more daily blood draws #Severe Sepsis likely 2/2 RLL PNA- resolving -completed 7 day course of levaquin #MELISSA likely 2/2 anemia vs severe sepsis vs post renal causes- resolved #Acute hypoxemic respiratory failure likely 2/2 severe symptomatic anemia vs PNA - resolved #lactic acidosis likley 2/2 severe sepsis vs anemia- resolved #FEN -no fluids indicated -electrolytes WNL -soft diet -added marinol to stimulate appetite #Prophy -SCDs -Protonix 40mg PO BID #dispo -awaiting open bed at [facility]. -based on patient's current status and prognosis, both pneumovax and flu vaccine would have no benefit Problem List - Problems (1) MELISSA (acute kidney injury) Code(s): N17.9 - ACUTE KIDNEY FAILURE, UNSPECIFIED (2) AML (acute myeloblastic leukemia) Code(s): C92.00 - ACUTE MYELOBLASTIC LEUKEMIA, NOT HAVING ACHIEVED REMISSION (3) Lactic acidosis Code(s): E87.2 - ACIDOSIS (4) Symptomatic anemia Code(s): D64.9 - ANEMIA, UNSPECIFIED (5) Syncope Code(s): R55 - SYNCOPE AND COLLAPSE (6) Lung cancer Code(s): C34.90 - MALIGNANT NEOPLASM OF UNSP PART OF UNSP BRONCHUS OR LUNG Qualifiers: Laterality: unspecified laterality (7) Prostate cancer Code(s): C61 - MALIGNANT NEOPLASM OF PROSTATE Visit type - Emergency Visit Emergency Visit: Yes ED Registration Date: 04/17/17 Care time: The patient presented to the Emergency Department on the above date and was hospitalized for further evaluation of their emergent condition. - New Patient This patient is new to me today: No - Critical Care Critical Care patient: No
[2017-04-30] MEDS: POLYETHYLENE GLYCOL 3350 119 GM BTL PO SCH (09:28)
[2017-04-30] MEDS: ALLOPURINOL 100 MG TABLET (FP) PO SCH (09:29)
[2017-04-30] MEDS: TAMSULOSIN HCL 0.4 MG CAP.ER.24H (FP) PO SCH (09:29)
[2017-04-30] MEDS: PANTOPRAZOLE 40 MG TABLET (FP) PO SCH (09:29)
[2017-04-30] MEDS: BACITRACIN/POLYMYXIN B SULFATE 15 GM TUBE TP SCH (09:29)
--- NOTE | 2017-04-30 12:32 | PN ---
Progress Note (short form) - Note Progress Note: Resting in NAD. No acute events overnight. No CP or SOB. Intake & Output 04/27/17 04/28/17 04/29/17 04/30/17 23:59 23:59 23:59 23:59 Intake Total 2030 1080 600 240 Output Total 750 300 750 350 Balance 1280 780 -150 -110 Last Vital Signs Temp Pulse Resp BP Pulse Ox 98.8 F 88 18 108/57 92 L 04/30/17 09:27 04/30/17 09:27 04/30/17 09:27 04/30/17 09:27 04/29/17 11:18 Active Medications Acetaminophen (Tylenol -) 650 mg PO Q6H PRN PRN Reason: FEVER OR PAIN Last Admin: 04/30/17 01:14 Dose: 650 mg Allopurinol (Zyloprim -) 100 mg PO DAILY [facility] Last Admin: 04/30/17 09:29 Dose: 100 mg Bacitracin/Polymyxin B Sulfate (Polysporin Ointment -) 1 applic TP DAILY [facility] Last Admin: 04/30/17 09:29 Dose: Not Given Dronabinol (Marinol -) 5 mg PO ACLD [facility] Last Admin: 04/29/17 16:51 Dose: Not Given Guaifenesin (Robitussin -) 10 ml PO Q4H PRN PRN Reason: COUGH Nystatin (Nystatin Oral Suspension -) 500,000 units PO Q6HPO [facility] Last Admin: 04/30/17 07:12 Dose: Not Given Oxycodone HCl (Roxicodone -) 5 mg PO Q6H PRN PRN Reason: PAIN Last Admin: 04/27/17 20:58 Dose: 5 mg Pantoprazole Sodium (Protonix -) 40 mg PO DAILY [facility] Last Admin: 04/30/17 09:29 Dose: 40 mg Polyethylene Glycol (Miralax (For Daily Use) -) 17 gm PO DAILY [facility] Last Admin: 04/30/17 09:28 Dose: 17 grams Tamsulosin HCl (Flomax -) 0.4 mg PO DAILY@0830 [facility] Last Admin: 04/30/17 09:29 Dose: 0.4 mg GENERAL: Awake, alert, and oriented, NAD HEAD: Normal with no signs of trauma. EYES: sclera anicteric, conjunctiva clear. No ptosis. NECK: Trachea midline, full range of motion, supple. LUNGS: Clear, no wheezes/rhonchi HEART: Regular rate and rhythm, S1, S2 without murmur, rub or gallop. ABDOMEN: Soft, nontender, nondistended, normoactive bowel sounds, no masses. EXTREMITIES: no edema. NEUROLOGICAL: Non-focal PSYCH: Normal mood, normal affect. SKIN: Warm, dry, normal turgor, no rashes or lesions noted ASSESSMENT/PLAN: This is a 77 yo M w/ PMH of multiple malignacies who was BIBEMS c/o increased SOB, cough, decreased PO intake and lethargy for 1 week. He was admitted for acute hypoxemic respiratory failure 2/2 severe symptomatic anemia and EMLISSA. #Hypotension 2/2 dropping blood counts and lack of PO intake -patient's appetite improving on marinol 5mg ACLD #Severe symptomatic anemia likely 2/2 malignancy -s/p total 8u PRBC, 3u Plt this admission -as per patient, he would not like any more daily blood draws #thrombocytopenia likely 2/2 malignancy -as per patient, he would not like any more daily blood draws #leukocytosis likley 2/2 malignancy -as per patient, he would not like any more daily blood draws #Severe Sepsis likely 2/2 RLL PNA- resolving -completed 7 day course of levaquin #MELISSA likely 2/2 anemia vs severe sepsis vs post renal causes- resolved #Acute hypoxemic respiratory failure likely 2/2 severe symptomatic anemia vs PNA - resolved #lactic acidosis likley 2/2 severe sepsis vs anemia- resolved #FEN -no fluids indicated -electrolytes WNL -soft diet -added marinol to stimulate appetite #Prophy -SCDs -Protonix 40mg PO BID #dispo -awaiting open bed at [facility]. -based on patient's current status and prognosis, both pneumovax and flu vaccine would have no benefit Problem List - Problems (1) MELISSA (acute kidney injury) Code(s): N17.9 - ACUTE KIDNEY FAILURE, UNSPECIFIED (2) AML (acute myeloblastic leukemia) Code(s): C92.00 - ACUTE MYELOBLASTIC LEUKEMIA, NOT HAVING ACHIEVED REMISSION (3) Lactic acidosis Code(s): E87.2 - ACIDOSIS (4) Symptomatic anemia Code(s): D64.9 - ANEMIA, UNSPECIFIED (5) Syncope Code(s): R55 - SYNCOPE AND COLLAPSE (6) Lung cancer Code(s): C34.90 - MALIGNANT NEOPLASM OF UNSP PART OF UNSP BRONCHUS OR LUNG Qualifiers: Laterality: unspecified laterality (7) Prostate cancer Code(s): C61 - MALIGNANT NEOPLASM OF PROSTATE PLAN: Conservative measures have been requested by patient due to multiple medical issues Awaiting bed at [facility] O2 as needed Comfort/Supportive measures Dr Hobson
[2017-04-30] MEDS: DRONABINOL 5 MG CAPSULE PO SCH ×2 (12:36→17:27)
--- NOTE | 2017-04-30 13:12 | PN ---
Teaching Attending Note Name of Resident: Dale Blas ATTENDING PHYSICIAN STATEMENT I saw and evaluated the patient. I reviewed the resident's note and discussed the case with the resident. I agree with the resident's findings and plan as documented. SUBJECTIVE:resting comfortable. reports slight improvement in appetite. also large BM after enema. denies Cp, SOB< fever, chills, N/V/C/D OBJECTIVE: Last Vital Signs Temp Pulse Resp BP Pulse Ox 98.8 F 88 18 108/57 92 L 04/30/17 09:27 04/30/17 09:27 04/30/17 09:27 04/30/17 09:27 04/29/17 11:18 Refused physical exam General NAD, cachectic ASSESSMENT AND PLAN: 77yo M with PMH AML, lung cancer, prostate cancer who presented to the ER with weakness, SOB. 1. Severe Malnutrition-slight improvement reported. Marinol now BID. will monitor. can further increase. encouraged po intake. 2. Hypotension- resolved. 3. Constipation-large BM yesterday after enema. will cont to monitor. cont stool softeners. 4. Pancyctopenia-s/p 1 unit PRBC and platelet. will not repeat labs at this time going forward, unless develops symptoms. pt agrees. 5. 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 palliative care at this time. accepted to [facility]. awaiting bed availability 6. Severe sepsis secondary to healthcare-associated pneumonia, possibly gram negative- clinically improved. saturating well on RA. completed 10 day course of abx. ID and pulmonary on board. 7. Palliative care. awaiting bed at [facility]
[2017-04-30 15:08] LABS: MCH 28.5 pg (25.7-33.7); MCHC 33.2 g/dl (32.0-35.9); MEAN CELL VOLUME 85.7 fl (80-96); RDW 15.3 % (11.9-15.9); WHITE BLOOD COUNT 12.5 K/mm3 (4.0-10.0)
[2017-04-30 15:23] LABS: PLATELET COUNT 22 K/MM3 (134-434)
[2017-05-01] MEDS: NYSTATIN 500,000 UNITS/5 ML SUSPENSION PO SCH ×2 (01:12→06:07)
--- NOTE | 2017-05-01 06:29 | PN ---
Physical Exam: SUBJECTIVE: Patient seen and examined at bedside. feels better today. no new complaints. OBJECTIVE: Vital Signs Period Temp Pulse Resp BP Sys/Leigh Pulse Ox Last 24 Hr 98.2 F-100.6 F 83-103 18-18 96-108/44-57 GENERAL: The patient is awake, alert, and fully oriented, in no acute distress. HEAD: Normal with no signs of trauma. EYES: extraocular movements intact, sclera anicteric, conjunctiva clear. No ptosis. NECK: Trachea midline, full range of motion, supple. LUNGS: Breath sounds equal, clear to auscultation bilaterally, no wheezes, no crackles, no accessory muscle use. HEART: Regular rate and rhythm, S1, S2 without murmur, rub or gallop. ABDOMEN: Soft, nontender, nondistended, normoactive bowel sounds, no guarding, no rebound, no hepatosplenomegaly, no masses. EXTREMITIES: 2+ pulses, warm, well-perfused, no edema. NEUROLOGICAL: Cranial nerves II through X grossly intact. Normal speech, gait not observed. PSYCH: Normal mood, normal affect. SKIN: Warm, dry, normal turgor, no rashes or lesions noted Laboratory Results - last 24 hr 04/27/17 04/30/17 17:30 14:40 WBC 12.5 H RBC 2.79 L Hgb 7.9 L Hct 23.9 L MCV 85.7 MCH 28.5 MCHC 33.2 RDW 15.3 Plt Count 22 L* D MPV 9.0 Blood Type B POSITIVE Antibody Screen Negative Crossmatch See Detail Active Medications Generic Name Dose Route Start Last Admin Trade Name Harshalq PRN Reason Stop Dose Admin Acetaminophen 650 mg 04/25/17 16:50 04/30/17 20:14 Tylenol - PO 650 mg Q6H PRN Administration FEVER OR PAIN Allopurinol 100 mg 04/20/17 10:00 04/30/17 09:29 Zyloprim - PO 100 mg DAILY DENISSE Administration Bacitracin/Polymyxin B Sulfate 1 applic 04/24/17 10:00 04/30/17 09:29 Polysporin Ointment - TP Not Given DAILY DENISSE Dronabinol 5 mg 04/29/17 11:30 04/30/17 17:27 Marinol - PO 5 mg ACLD DENISSE Administration Guaifenesin 10 ml 04/29/17 16:58 Robitussin - PO Q4H PRN COUGH Nystatin 500,000 units 04/20/17 06:00 05/01/17 06:07 Nystatin Oral Suspension - PO Not Given Q6HPO DENISSE Oxycodone HCl 5 mg 04/24/17 08:32 04/27/17 20:58 Roxicodone - PO 5 mg Q6H PRN Administration PAIN Pantoprazole Sodium 40 mg 04/20/17 10:00 04/30/17 09:29 Protonix - PO 40 mg DAILY DENISSE Administration Polyethylene Glycol 17 gm 04/20/17 10:00 04/30/17 09:28 Miralax (For Daily Use) - PO 17 grams DAILY DENISSE Administration Tamsulosin HCl 0.4 mg 04/20/17 08:30 04/30/17 09:29 Flomax - PO 0.4 mg DAILY@0830 DENISSE Administration ASSESSMENT/PLAN: This is a 77 yo M w/ PMH of multiple malignacies who was BIBEMS c/o increased SOB, cough, decreased PO intake and lethargy for 1 week. He was admitted for acute hypoxemic respiratory failure 2/2 severe symptomatic anemia and MELISSA. #Weakness/Hypotension 2/2 dropping blood counts and lack of PO intake -patient's appetite improving on marinol 5mg ACLD -patient with weakness and low energy yesterday pm -Blood drawn at pt request; Hb 7.9 plt 22 -BP 105/52; patient declined IVF or PRBCS -continued encouragement of PO intake -will continue symptomatic treatment as patient requests it #Severe symptomatic anemia likely 2/2 malignancy -s/p total 8u PRBC, 3u Plt this admission -as per patient, he would not like any more daily blood draws #thrombocytopenia likely 2/2 malignancy -as per patient, he would not like any more daily blood draws #leukocytosis likley 2/2 malignancy -as per patient, he would not like any more daily blood draws #Severe Sepsis likely 2/2 RLL PNA- resolving -completed 7 day course of levaquin #MELISSA likely 2/2 anemia vs severe sepsis vs post renal causes- resolved #Acute hypoxemic respiratory failure likely 2/2 severe symptomatic anemia vs PNA - resolved #lactic acidosis likley 2/2 severe sepsis vs anemia- resolved #FEN -no fluids indicated -soft diet -added marinol to stimulate appetite #Prophy -SCDs -Protonix 40mg PO BID #dispo -awaiting open bed at [facility]. Problem List - Problems (1) MELISSA (acute kidney injury) Code(s): N17.9 - ACUTE KIDNEY FAILURE, UNSPECIFIED (2) AML (acute myeloblastic leukemia) Code(s): C92.00 - ACUTE MYELOBLASTIC LEUKEMIA, NOT HAVING ACHIEVED REMISSION (3) Lactic acidosis Code(s): E87.2 - ACIDOSIS (4) Symptomatic anemia Code(s): D64.9 - ANEMIA, UNSPECIFIED (5) Syncope Code(s): R55 - SYNCOPE AND COLLAPSE (6) Lung cancer Code(s): C34.90 - MALIGNANT NEOPLASM OF UNSP PART OF UNSP BRONCHUS OR LUNG Qualifiers: Laterality: unspecified laterality (7) Prostate cancer Code(s): C61 - MALIGNANT NEOPLASM OF PROSTATE
[2017-05-01] MEDS: TAMSULOSIN HCL 0.4 MG CAP.ER.24H (FP) PO SCH (08:45)
[2017-05-01] MEDS: oxyCODONE HCL 5 MG TABLET PO PRN (08:46)
[2017-05-01] MEDS: ALLOPURINOL 100 MG TABLET (FP) PO SCH (09:00)
[2017-05-01] MEDS: PANTOPRAZOLE 40 MG TABLET (FP) PO SCH (09:00)
[2017-05-01] MEDS: POLYETHYLENE GLYCOL 3350 119 GM BTL PO SCH (09:00)
[2017-05-01 09:44] VITALS: BP 104/55; PULSE 88; TEMP 98.1
--- NOTE | 2017-05-01 11:37 | DS ---
Physical Exam: SUBJECTIVE: Patient seen and examined at bedside. No new complaints. OBJECTIVE: Vital Signs Period Temp Pulse Resp BP Sys/Leigh Pulse Ox Last 24 Hr 98.1 F-100.6 F 83-103 16-18 96-104/44-55 PHYSICAL EXAM GENERAL: The patient is awake, alert, and fully oriented, in no acute distress. HEAD: Normal with no signs of trauma. EYES: extraocular movements intact, sclera anicteric, conjunctiva clear. NECK: Trachea midline, full range of motion, supple. LUNGS: Breath sounds equal, clear to auscultation bilaterally, no wheezes, no crackles, no accessory muscle use. HEART: Regular rate and rhythm, S1, S2 without murmur, rub or gallop. ABDOMEN: Soft, nontender, nondistended, normoactive bowel sounds, no guarding, no rebound, no hepatosplenomegaly, no masses. EXTREMITIES: 2+ pulses, warm, well-perfused, no edema. NEUROLOGICAL: Cranial nerves II through X grossly intact. Normal speech, gait not observed. PSYCH: Normal mood, normal affect. SKIN: Warm, dry, normal turgor, no rashes or lesions noted. LABS Laboratory Results - last 24 hr 04/27/17 04/30/17 17:30 14:40 WBC 12.5 H RBC 2.79 L Hgb 7.9 L Hct 23.9 L MCV 85.7 MCH 28.5 MCHC 33.2 RDW 15.3 Plt Count 22 L* D MPV 9.0 Blood Type B POSITIVE Antibody Screen Negative Crossmatch See Detail HOSPITAL COURSE: Date of Admission:04/17/17 Patient is a 77 year old male with past medical history of stage IV lung cancer , AML, and prostate cancer who was brought to the ED by EMS after a week of SOB , cough, lethargy, and decreased oral intake. His CBC showed a hemoglobin of 3.0. BMP was significant for a creatinine 0f 1.8 (baseline 0.8), BUN of 83 and lactic acid of 9.8, and he was admitted to the ICU for acute hypoxemic respiratory failure secondary to severe symptomatic anemia and MELISSA. Hem/onc was consulted. Patient received a total of 8 units of prbcs and 3 units of platelets and IVF during his stay. Chest x ray was significant for increased right pleural effusion and right lower lobe consolidation, so patient was empirically placed on IV vancomycin and zosyn until ID was consulted and changed it to levaquin. The patient's pain was controlled with Percocet 5/325. GI was brought on board to rule out source of bleeding and found no indication for intervention. After many discussions with the patient, he elected to go to hospice care. His hospital course was complicated by decreased appetite for which he was placed on Marinol 5mg PO ACLD with improvement of appetite. His lactic acidosis and MELISSA both resolved during his stay. Patient will be transferred to [facility] for hospice care. Date of Discharge: 05/01/17 Minutes to complete discharge: 20 Discharge Summary Reason For Visit: ANEMIA Current Active Problems MELISSA (acute kidney injury) (Acute) AML (acute myeloblastic leukemia) (Acute) Chest pain (Acute) Demand ischemia (Acute) GIB (gastrointestinal bleeding) (Acute) Lactic acidosis (Acute) Symptomatic anemia (Acute) Syncope (Acute) Condition: Critical - Instructions Diet, Activity, Other Instructions: You were admitted for anemia because of your leukemia. You are being transferred to [facility] for continued care. You should resume taking all of your home medications tomorrow. We are sending some new medications with you to the [facility]. We will give the list to the hospital so that they can give all of your new and old medications to you. Please try to eat as much as you can to maintain your strength. Referrals: Feliberto Pantoja MD [Primary Care Provider] - - Home Medications Comprehensive Discharge Medication List: Ambulatory Orders Docusate Sodium [Colace -] 100 mg PO DAILY 04/17/17 Oxycodone HCl 10 mg PO Q6H 04/17/17 Sennosides [Senna] 8.6 mg PO DAILY 04/17/17 Tamsulosin HCl [Flomax -] 0.4 mg PO DAILY 04/17/17 Acetaminophen [Tylenol .Regular Strength -] 650 mg PO Q6H PRN #0 tablet Allopurinol [Zyloprim -] 100 mg PO DAILY tablet 05/01/17 Bacitracin/Polymyxin Ointment [Polysporin Ointment -] 1 applic TP DAILY tube Dronabinol [Marinol -] 5 mg PO ACLD cap MDD 30 05/01/17 Guaifenesin [Robitussin -] 10 ml PO Q4H PRN #0 ml 05/01/17 Nystatin Oral Suspension - [Nystatin Oral Susp 446821 Units/5 ML -] 500,000 units PO Q6HPO ml 05/01/17 Pantoprazole Sodium [Protonix -] 40 mg PO DAILY tab 05/01/17 Polyethylene Glycol 3350 [Miralax 119 gm Btl -] 17 gm PO DAILY bottle 05/01/17 Problem List - Problems (1) MELISSA (acute kidney injury) Code(s): N17.9 - ACUTE KIDNEY FAILURE, UNSPECIFIED (2) AML (acute myeloblastic leukemia) Code(s): C92.00 - ACUTE MYELOBLASTIC LEUKEMIA, NOT HAVING ACHIEVED REMISSION (3) Lactic acidosis Code(s): E87.2 - ACIDOSIS (4) Symptomatic anemia Code(s): D64.9 - ANEMIA, UNSPECIFIED (5) Syncope Code(s): R55 - SYNCOPE AND COLLAPSE (6) Lung cancer Code(s): C34.90 - MALIGNANT NEOPLASM OF UNSP PART OF UNSP BRONCHUS OR LUNG Qualifiers: Laterality: unspecified laterality (7) Prostate cancer Code(s): C61 - MALIGNANT NEOPLASM OF PROSTATE This patient is new to me today: No Emergency Visit: Yes ED Registration Date: 04/17/17 Care time: The patient presented to the Emergency Department on the above date and was hospitalized for further evaluation of their emergent condition. Critical Care patient: No - Discharge Referral Referred to [facility] Med [facility].: No
[2017-05-01] MEDS: DRONABINOL 5 MG CAPSULE PO SCH (11:45)
--- NOTE | 2017-05-01 11:59 | PN ---
Teaching Attending Note Name of Resident: Dale Blas ATTENDING PHYSICIAN STATEMENT I saw and evaluated the patient. I reviewed the resident's note and discussed the case with the resident. I agree with the resident's findings and plan as documented. SUBJECTIVE: Patient has no complaints. OBJECTIVE: Vital Signs Period Temp Pulse Resp BP Sys/Leigh Pulse Ox Last 24 Hr 98.1 F-100.6 F 83-103 16-18 96-104/44-55 HEART: S1S2, RRR LUNGS: Clear ABDOMEN: Soft, non-tender, non-distended, normal BS EXTREMITIES: No edema Current Medications Generic Name Dose Route Start Last Admin Trade Name Freq PRN Reason Stop Dose Admin Acetaminophen 650 mg 04/25/17 16:50 04/30/17 20:14 Tylenol - PO 650 mg Q6H PRN Administration FEVER OR PAIN Allopurinol 100 mg 04/20/17 10:00 05/01/17 09:00 Zyloprim - PO 100 mg DAILY DENISSE Administration Bacitracin/Polymyxin B Sulfate 1 applic 04/24/17 10:00 04/30/17 09:29 Polysporin Ointment - TP Not Given DAILY DENISSE Dronabinol 5 mg 04/29/17 11:30 05/01/17 11:45 Marinol - PO 5 mg ACLD DENISSE Administration Guaifenesin 10 ml 04/29/17 16:58 Robitussin - PO Q4H PRN COUGH Nystatin 500,000 units 04/20/17 06:00 05/01/17 06:07 Nystatin Oral Suspension - PO Not Given Q6HPO DENISSE Oxycodone HCl 5 mg 04/24/17 08:32 05/01/17 08:46 Roxicodone - PO 5 mg Q6H PRN Administration PAIN Pantoprazole Sodium 40 mg 04/20/17 10:00 05/01/17 09:00 Protonix - PO 40 mg DAILY DENISSE Administration Polyethylene Glycol 17 gm 04/20/17 10:00 05/01/17 09:00 Miralax (For Daily Use) - PO 17 grams DAILY DENISSE Administration Tamsulosin HCl 0.4 mg 04/20/17 08:30 05/01/17 08:45 Flomax - PO 0.4 mg DAILY@0830 DENISSE Administration ASSESSMENT AND PLAN: This is a 77-year-old man with a history of AML, lung cancer, prostate cancer who presented to the ER with weakness, SOB. 1. Severe sepsis secondary to healthcare-associated pneumonia, possibly gram negative - Improved - Completed antibiotics 2. Severe anemia - Transfused 8 units PRBCs this admission - Likely secondary to sepsis, AML 3. Acute hypoxic respiratory failure secondary to pneumonia, anemia - Improved 4. Thrombocytopenia - Likely secondary to sepsis, AML - Transfused 3 units platelets this admission 5. Acute kidney injury secondary to sepsis, hypoperfusion - Improved 6. Stage IV squamous cell lung cancer 7. Prostate cancer 8. AML 9. Hypomagnesemia - Improved 10. Hypophosphatemia - Improved 11. Patient is on palliative care. Discharge to [place] today.
--- NOTE | 2017-05-01 12:08 | PN ---
Progress Note (short form) - Note Progress Note: Resting in NAD. No acute events overnight. No CP or SOB. Intake & Output 04/28/17 04/29/17 04/30/17 05/01/17 23:59 23:59 23:59 23:59 Intake Total 1080 600 480 120 Output Total 104 314 4011 Balance 780 -150 -770 120 Last Vital Signs Temp Pulse Resp BP Pulse Ox 98.1 F 88 16 104/55 98 05/01/17 09:43 05/01/17 09:43 05/01/17 09:43 05/01/17 09:43 05/01/17 09:20 Active Medications Acetaminophen (Tylenol -) 650 mg PO Q6H PRN PRN Reason: FEVER OR PAIN Last Admin: 04/30/17 20:14 Dose: 650 mg Allopurinol (Zyloprim -) 100 mg PO DAILY [facility] Last Admin: 05/01/17 09:00 Dose: 100 mg Bacitracin/Polymyxin B Sulfate (Polysporin Ointment -) 1 applic TP DAILY [facility] Last Admin: 04/30/17 09:29 Dose: Not Given Dronabinol (Marinol -) 5 mg PO ACLD [facility] Last Admin: 05/01/17 11:45 Dose: 5 mg Guaifenesin (Robitussin -) 10 ml PO Q4H PRN PRN Reason: COUGH Nystatin (Nystatin Oral Suspension -) 500,000 units PO Q6HPO [facility] Last Admin: 05/01/17 06:07 Dose: Not Given Oxycodone HCl (Roxicodone -) 5 mg PO Q6H PRN PRN Reason: PAIN Last Admin: 05/01/17 08:46 Dose: 5 mg Pantoprazole Sodium (Protonix -) 40 mg PO DAILY [facility] Last Admin: 05/01/17 09:00 Dose: 40 mg Polyethylene Glycol (Miralax (For Daily Use) -) 17 gm PO DAILY [facility] Last Admin: 05/01/17 09:00 Dose: 17 grams Tamsulosin HCl (Flomax -) 0.4 mg PO DAILY@0830 [facility] Last Admin: 05/01/17 08:45 Dose: 0.4 mg GENERAL: Awake, alert, and oriented, NAD HEAD: Normal with no signs of trauma. EYES: sclera anicteric, conjunctiva clear. No ptosis. NECK: Trachea midline, full range of motion, supple. LUNGS: Clear, no wheezes/rhonchi HEART: Regular rate and rhythm, S1, S2 without murmur, rub or gallop. ABDOMEN: Soft, nontender, nondistended, normoactive bowel sounds, no masses. EXTREMITIES: no edema. NEUROLOGICAL: Non-focal PSYCH: Normal mood, normal affect. SKIN: Warm, dry, normal turgor, no rashes or lesions noted Laboratory Results - last 24 hr 04/27/17 04/30/17 17:30 14:40 WBC 12.5 H RBC 2.79 L Hgb 7.9 L Hct 23.9 L MCV 85.7 MCH 28.5 MCHC 33.2 RDW 15.3 Plt Count 22 L* D MPV 9.0 Blood Type B POSITIVE Antibody Screen Negative Crossmatch See Detail Problem List - Problems (1) MELISSA (acute kidney injury) Code(s): N17.9 - ACUTE KIDNEY FAILURE, UNSPECIFIED (2) AML (acute myeloblastic leukemia) Code(s): C92.00 - ACUTE MYELOBLASTIC LEUKEMIA, NOT HAVING ACHIEVED REMISSION (3) Lactic acidosis Code(s): E87.2 - ACIDOSIS (4) Symptomatic anemia Code(s): D64.9 - ANEMIA, UNSPECIFIED (5) Syncope Code(s): R55 - SYNCOPE AND COLLAPSE (6) Lung cancer Code(s): C34.90 - MALIGNANT NEOPLASM OF UNSP PART OF UNSP BRONCHUS OR LUNG Qualifiers: Laterality: unspecified laterality (7) Prostate cancer Code(s): C61 - MALIGNANT NEOPLASM OF PROSTATE PLAN: Conservative measures have been requested by patient due to multiple medical issues Awaiting bed at [place] O2 as needed Comfort/Supportive measures Dr Hobson
== END 2017-05-01 12:22 | disposition hospice, inpatient (51) | DRG 871 ==
LOC: JER 10:56 → JERBED 13:07 → JICU 14:08 → J7W 04-20 00:01
PROVIDERS: ADMIT Internal Medicine; ATTEND Internal Medicine
PROC: 30233N1 Transfusion of Nonautologous Red Blood Cells into Peripheral Vein, Percutaneous Approach (ICD-10-PCS; 2017-04-17)
PROC: 30233R1 Transfusion of Nonautologous Platelets into Peripheral Vein, Percutaneous Approach (ICD-10-PCS; principal; 2017-04-18)
DX: A41.9 Sepsis, unspecified organism (principal); J96.01 Acute respiratory failure with hypoxia; J15.6 Pneumonia due to other Gram-negative bacteria; E43 Unspecified severe protein-calorie malnutrition; C92.00 Acute myeloblastic leukemia, not having achieved remission; N17.9 Acute kidney failure, unspecified; E87.2 Acidosis; I24.8 Other forms of acute ischemic heart disease; D61.818 Other pancytopenia; K92.2 Gastrointestinal hemorrhage, unspecified; J90 Pleural effusion, not elsewhere classified; R04.2 Hemoptysis; R65.20 Severe sepsis without septic shock; C61 Malignant neoplasm of prostate; R55 Syncope and collapse; E86.0 Dehydration; Z87.891 Personal history of nicotine dependence; D69.6 Thrombocytopenia, unspecified; E86.1 Hypovolemia; D64.9 Anemia, unspecified; Y95 Nosocomial condition; E83.42 Hypomagnesemia; E83.39 Other disorders of phosphorus metabolism; E83.51 Hypocalcemia; S30.810A Abrasion of lower back and pelvis, initial encounter; W01.0XXA Fall on same level from slipping, tripping and stumbling without subsequent striking against object, initial encounter; Y93.89 Activity, other specified; Y92.231 Patient bathroom in hospital as the place of occurrence of the external cause; Y99.8 Other external cause status; K59.00 Constipation, unspecified
CPT/HCPCS: 36415; 36430; 71010-TC; 72100-TC; 76775-TC; 76856-TC; 80048; 80053; 81003; 82040; 82272; 82607; 82728; 82803; 82955; 83010; 83540; 83550; 83605; 83615; 83690; 83735; 84100; 84484; 84550; 85025; 85027; 85041; 85044; 85384; 85610; 85730; 86850; 86880; 86900; 86901; 86922; 87040; 87070; 87086; 87102; 87205; 87210; 87305; 87449; 87899; 88300-TC; 93005; 93010; 93306-TC; 93970-TC; 97116-GP; 97161-GP; 99285-25; G0480; P9034; P9038; P9058